=== PATIENT | female | born 1955 | race Caucasian/White ===

== ENCOUNTER 2017-12-01 16:44 | Emergency (ER) | payer BC, OTHER ==
[2017-12-01 17:08] VITALS: BP 141/76; PULSE 89; RESP 18; TEMP 97.6
[2017-12-01] MEDS ORDERED: PROPARACAINE 0.5% OPHTH DROPS 15 ML BTL BOTH EYES STA (17:32)
[2017-12-01] MEDS ORDERED: ERYTHROMYCIN 5 MG/GM OPHTH OINT 3.5 GM TUBE BOTH EYES ONE (17:45)
--- NOTE | 2017-12-01 18:13 | ED ---
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 She thinks that she has a foreign body with in the eye. She reports she woke up after working afternoon shift yesterday with the eye pain. She states that she had drainage from the eye. Denies any other symptoms. - Related Data Home Medications Medication Instructions Recorded Confirmed Naproxen Sodium [Aleve] 220 mg PO Q8H PRN 01/08/16 01/14/16 Azithromycin [Zithromax Z-pack] 250 - 500 mg PO DAILY 01/14/16 01/14/16 Previous Rx's Medication Instructions Recorded predniSONE 50 mg PO DAILY #5 tab 01/08/16 Albuterol Inhaler [Ventolin Hfa 1 - 2 puff INHALATION Q4H PRN #1 01/14/16 Inhaler] inhaler Allergies Allergy/AdvReac Type Severity Reaction Status Date / Time No Known Allergies Allergy Verified 12/01/17 17:08 Review of Systems ROS Statement: Those systems with pertinent positive or pertinent negative responses have been documented in the HPI. ROS Other: All systems not noted in ROS Statement are negative. Past Medical History Past Medical History: COPD History of Any Multi-Drug Resistant Organisms: None Reported Past Surgical History: No Surgical Hx Reported Past Psychological History: No Psychological Hx Reported Smoking Status: Current every day smoker Past Alcohol Use History: None Reported Past Drug Use History: None Reported General Exam - General Exam Comments Initial Comments: 62 yo female, no distress. Limitations: no limitations General appearance: alert, in no apparent distress Head exam: Present: atraumatic, normocephalic, normal inspection Eye exam: Present: normal appearance, PERRL, EOMI, conjunctival injection (left eye conjunctival injection). Absent: scleral icterus, periorbital swelling Expanded Eyelids: Normal Inspection: Bilateral Pupils: Regular, Round: Bilateral Sclera/Conjunctival: Injection: Left, Foreign Body: Left (corneal abrasion at 6 to 8 oclock position. No foreign body noted. ) Anterior chamber: Normal Inspection: Bilateral Posterior chamber: Deferred: Bilateral IOP (R) in mmH IOP (L) in mmH IOP measured with: [facility] ENT exam: Present: normal exam, mucous membranes moist Neck exam: Present: normal inspection. Absent: tenderness, meningismus, lymphadenopathy Respiratory exam: Present: normal lung sounds bilaterally. Absent: respiratory distress, wheezes, rales, rhonchi, stridor Cardiovascular Exam: Present: regular rate, normal rhythm, normal heart sounds. Absent: systolic murmur, diastolic murmur, rubs, gallop, clicks GI/Abdominal exam: Present: soft, normal bowel sounds. Absent: distended, tenderness, guarding, rebound, rigid Extremities exam: Present: normal inspection, full ROM, normal capillary refill. Absent: tenderness, pedal edema, joint swelling, calf tenderness Back exam: Present: normal inspection Neurological exam: Present: alert, oriented X3, CN II-XII intact Psychiatric exam: Present: normal affect, normal mood Course Vital Signs 12/01/17 12/01/17 17:07 18:31 Temperature 97.6 F 97.6 F Pulse Rate 89 89 Respiratory 18 18 Rate Blood Pressure 141/76 141/76 O2 Sat by Pulse 96 96 Oximetry Medical Decision Making - Medical Decision Making 62 year old female with left eye pain, and question foreign body. She works [employer]. She appears to have a corneal abrasion. No evidence of retained metal foreign body. Patient has mildly increased IOP of 25 in left eye. Will start on erythromycin ointment,and follow up with ophthalomology. Given referral adn return parameters discussed. Disposition Clinical Impression: Corneal abrasion Disposition: HOME SELF-CARE Condition: Good Instructions: Corneal Abrasion (ED) Additional Instructions: Patient has a follow-up tomorrow with hat designer in regards to elevated pressure as well as the corneal abrasion. Patient should return to the emergency department if any alarming signs or symptoms occur. The pressure in the left eye was 25, pressure was in the right eye was 16. And should put the eye ointment and every 4 hours. Is patient prescribed a controlled substance at d/c from ED?: No If prescribed controlled substance>3 days was MAPS reviewed?: No When asked, does pt state using other controlled substances?: No Referrals: None,Stated [Primary Care Provider] - 1-2 days Mendel Valle MD [STAFF PHYSICIAN] - 1-2 days Time of Disposition: 18:10
== END 2017-12-01 18:30 | disposition home or self-care (01) ==
LOC: EC 16:44
DX: S05.02XA Injury of conjunctiva and corneal abrasion without foreign body, left eye, initial encounter (principal); F17.200 Nicotine dependence, unspecified, uncomplicated; Y99.0 Civilian activity done for income or pay
CPT/HCPCS: 99283

== ENCOUNTER 2018-03-18 11:37 | Inpatient (IN) | payer BC ==
[2018-03-18] MEDS ORDERED: SODIUM CHLORIDE 0.9% 1,000 ML IV STA (12:09)
--- NOTE | 2018-03-18 12:13 | ED ---
General Adult HPI - General Chief complaint: Abdominal Pain Stated complaint: RT ARM PAIN, NUMBNESS, ABDOMINAL PAIN Time Seen by Provider: 03/18/18 11:59 Source: patient, RN notes reviewed Mode of arrival: ambulatory Limitations: no limitations - History of Present Illness Initial comments: Patient 62-year-old female presenting to the emergency room today with multiple complaints. Patient does admit that 2 days ago she woke up in the morning feeling some crampy type abdominal pain located more on the left. She states there has been some radiation over to the right side. Patient states pain seems to come and go. She describes it as "sharp". Patient also admits that she began feeling some pain back of the right shoulder and some numbness tingling into the right arm. Patient states these pains in the right arm are worse with movements. 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 She denies any known injury. Patient does admit to episodes of nausea vomiting. States appetites been decreased. Patient denies any other complaints. Patient denies any recent fever , chills, shortness of breath, chest pain, back pain, dysuria or hematuria, constipation or diarrhea, headaches or visual changes, or any other complaints. - Related Data Home Medications Medication Instructions Recorded Confirmed No Known Home Medications 03/18/18 03/18/18 Allergies Allergy/AdvReac Type Severity Reaction Status Date / Time No Known Allergies Allergy Verified 03/18/18 11:44 Review of Systems ROS Statement: Those systems with pertinent positive or pertinent negative responses have been documented in the HPI. ROS Other: All systems not noted in ROS Statement are negative. Past Medical History Past Medical History: COPD History of Any Multi-Drug Resistant Organisms: None Reported Past Surgical History: No Surgical Hx Reported Additional Past Surgical History / Comment(s): left nephrectomy r/t donated Past Psychological History: No Psychological Hx Reported Smoking Status: Current every day smoker Past Alcohol Use History: None Reported Past Drug Use History: None Reported General Exam - General Exam Comments Initial Comments: General: The patient is awake and alert, in no distress, and does not appear acutely ill. Eye: Pupils are equal, round and reactive to light, extra-ocular movements are intact. No nystagmus. There is normal conjunctiva bilaterally. No signs of icterus. Ears, nose, mouth and throat: There are moist mucous membranes and no oral lesions. Neck: The neck is supple, there is no tenderness or JVD. Cardiovascular: There is a regular rate and rhythm. No murmur, rub or gallop is appreciated. Respiratory: Lungs are clear to auscultation, respirations are non-labored, breath sounds are equal. No wheezes, stridor, rales, or rhonchi. Gastrointestinal: Abdomen soft on palpation. Patient does have tenderness lower quadrants both left and right. No rebound, guarding. Mild right-sided CVA tenderness. Musculoskeletal: Normal ROM. Tender to palpation posterior aspect shoulder and trapezius area. Pain worse with flexion and extension. Strength 5/5. Sensation intact. Pulses equal bilaterally 2+. Neurological: A&O x 3. CN II-XII intact, There are no obvious motor or sensory deficits. Coordination appears grossly intact. Speech is normal. Skin: Skin is warm and dry and no rashes or lesions are noted. Psychiatric: Cooperative, appropriate mood & affect, normal judgment. Limitations: no limitations Course Vital Signs 03/18/18 03/18/18 03/18/18 11:44 13:05 15:00 Temperature 97.9 F Pulse Rate 76 58 L 67 Respiratory 18 20 18 Rate Blood Pressure 103/67 116/55 158/68 O2 Sat by Pulse 100 95 98 Oximetry 03/18/18 16:00 Temperature 98.3 F Pulse Rate 52 L Respiratory 20 Rate Blood Pressure 149/69 O2 Sat by Pulse 98 Oximetry EKG Findings - EKG Comments: EKG Findings:: EKG performed at 1219: Shows normal sinus rhythm at 73 beats per minute. MA interval 154. QRS 78. QT/QTC 388/427. No acute ST changes. Medical Decision Making - Medical Decision Making Patient reexamined at this time still expresses some discomfort in the abdomen. Patient states that last bowel movement was 2 days ago. He is unsure if this had any flatulence today. Patient CT of the abdomen and pelvis does show evidence for acute diverticulitis. Also possible ileus versus small bowel obstruction patient will be started on IV antibiotics Levaquin and Flagyl here in the emergency room. Patient will remain nothing by mouth. - Lab Data Result diagrams: 03/18/18 13:05 03/18/18 13:05 Lab Results 03/18/18 03/18/18 03/18/18 Range/Units 13:05 13:05 13:05 WBC 8.7 (3.8-10.6) k/uL RBC 3.44 L (3.80-5.40) m/uL Hgb 10.4 L (11.4-16.0) gm/dL Hct 32.5 L (34.0-46.0) % MCV 94.6 (80.0-100.0) fL MCH 30.2 (25.0-35.0) pg MCHC 31.9 (31.0-37.0) g/dL RDW 15.6 H (11.5-15.5) % Plt Count 198 (150-450) k/uL Neutrophils % 88 % Lymphocytes % 4 % Monocytes % 5 % Eosinophils % 1 % Basophils % 0 % Neutrophils # 7.7 (1.3-7.7) k/uL Lymphocytes # 0.4 L (1.0-4.8) k/uL Monocytes # 0.5 (0-1.0) k/uL Eosinophils # 0.1 (0-0.7) k/uL Basophils # 0.0 (0-0.2) k/uL PT 9.9 (9.0-12.0) sec INR 1.0 (<1.2) APTT 23.7 (22.0-30.0) sec Sodium 135 L (137-145) mmol/L Potassium 4.1 (3.5-5.1) mmol/L Chloride 103 (98-107) mmol/L Carbon Dioxide 27 (22-30) mmol/L Anion Gap 5 mmol/L BUN 16 (7-17) mg/dL Creatinine 0.76 (0.52-1.04) mg/dL Est GFR (CKD-EPI)AfAm >90 (>60 ml/min/1.73 sqM) Est GFR (CKD-EPI)NonAf 85 (>60 ml/min/1.73 sqM) Glucose 94 (74-99) mg/dL Calcium 8.5 (8.4-10.2) mg/dL Total Bilirubin 0.5 (0.2-1.3) mg/dL AST 27 (14-36) U/L ALT 25 (9-52) U/L Alkaline Phosphatase 68 (38-126) U/L Troponin I (0.000-0.034) ng/mL Total Protein 7.3 (6.3-8.2) g/dL Albumin 3.1 L (3.5-5.0) g/dL Amylase 41 (30-110) U/L Lipase 47 (23-300) U/L Urine Color Urine Appearance (Clear) Urine pH (5.0-8.0) Ur Specific [place] (1.001-1.035) Urine Protein (Negative) Urine Glucose (UA) (Negative) Urine Ketones (Negative) Urine Blood (Negative) Urine Nitrite (Negative) Urine Bilirubin (Negative) Urine Urobilinogen (<2.0) mg/dL Ur Leukocyte Esterase (Negative) 03/18/18 03/18/18 Range/Units 13:05 15:28 WBC (3.8-10.6) k/uL RBC (3.80-5.40) m/uL Hgb (11.4-16.0) gm/dL Hct (34.0-46.0) % MCV (80.0-100.0) fL MCH (25.0-35.0) pg MCHC (31.0-37.0) g/dL RDW (11.5-15.5) % Plt Count (150-450) k/uL Neutrophils % % Lymphocytes % % Monocytes % % Eosinophils % % Basophils % % Neutrophils # (1.3-7.7) k/uL Lymphocytes # (1.0-4.8) k/uL Monocytes # (0-1.0) k/uL Eosinophils # (0-0.7) k/uL Basophils # (0-0.2) k/uL PT (9.0-12.0) sec INR (<1.2) APTT (22.0-30.0) sec Sodium (137-145) mmol/L Potassium (3.5-5.1) mmol/L Chloride (98-107) mmol/L Carbon Dioxide (22-30) mmol/L Anion Gap mmol/L BUN (7-17) mg/dL Creatinine (0.52-1.04) mg/dL Est GFR (CKD-EPI)AfAm (>60 ml/min/1.73 sqM) Est GFR (CKD-EPI)NonAf (>60 ml/min/1.73 sqM) Glucose (74-99) mg/dL Calcium (8.4-10.2) mg/dL Total Bilirubin (0.2-1.3) mg/dL AST (14-36) U/L ALT (9-52) U/L Alkaline Phosphatase (38-126) U/L Troponin I <0.012 (0.000-0.034) ng/mL Total Protein (6.3-8.2) g/dL Albumin (3.5-5.0) g/dL Amylase (30-110) U/L Lipase (23-300) U/L Urine Color Light Yellow Urine Appearance Clear (Clear) Urine pH 6.5 (5.0-8.0) Ur Specific [place] 1.013 (1.001-1.035) Urine Protein Negative (Negative) Urine Glucose (UA) Negative (Negative) Urine Ketones Negative (Negative) Urine Blood Negative (Negative) Urine Nitrite Negative (Negative) Urine Bilirubin Negative (Negative) Urine Urobilinogen <2.0 (<2.0) mg/dL Ur Leukocyte Esterase Negative (Negative) Disposition Clinical Impression: Acute diverticulitis, Ileus Disposition: ADMITTED IP TO THIS [facility] Condition: Stable Is patient prescribed a controlled substance at d/c from ED?: No Referrals: None,Stated [Primary Care Provider] - 1-2 days Time of Disposition: 16:03
[2018-03-18 13:23] LABS: Basophils % (A) 0 %; Eosinophils # (A) 0.1 k/uL (0-0.7); Eosinophils % (A) 1 %; HCT 32.5 % (34.0-46.0); HGB 10.4 gm/dL (11.4-16.0); Lymphocytes # (A) 0.4 k/uL (1.0-4.8); Lymphocytes % (A) 4 %; MCH 30.2 pg (25.0-35.0); MCHC 31.9 g/dL (31.0-37.0); MCV 94.6 fL (80.0-100.0); Mean Platelet Volume 7.3; Monocytes # (A) 0.5 k/uL (0-1.0); Monocytes % (A) 5 %; Neutrophils # (A) 7.7 k/uL (1.3-7.7); Neutrophils % (A) 88 %; Platelet Count 198 k/uL (150-450); RBC 3.44 m/uL (3.80-5.40); RDW 15.6 % (11.5-15.5); WBC 8.7 k/uL (3.8-10.6)
--- NOTE | 2018-03-18 13:35 | XR ---
EXAMINATION TYPE: XR chest 2V DATE OF EXAM: 03/18/2018 COMPARISON: 01/14/2016 HISTORY: Shortness of breath TECHNIQUE: Frontal and lateral views of the chest are obtained. FINDINGS: Scattered senescent parenchymal changes noted. Hyperinflation compatible with COPD. No evidence for infiltrate. No evidence for atelectasis. Heart size is stable. Mediastinal structures are stable and grossly unremarkable. No evidence for hilar prominence. Degenerative changes dorsal spine. IMPRESSION: 1. No evidence for acute pulmonary disease.
[2018-03-18 13:37] LABS: Partial Thromboplastin Time 23.7 sec (22.0-30.0); Prothrombin Time 9.9 sec (9.0-12.0)
--- NOTE | 2018-03-18 13:37 | XR ---
EXAMINATION TYPE: XR KUB DATE OF EXAM: 03/18/2018 COMPARISON: NONE HISTORY: Pain TECHNIQUE: Single supine KUB image of the abdomen is obtained FINDINGS: Small bowel demonstrates no evidence for dilatation or air fluid levels. Gas and fecal material is seen in non-distended colon. No convincing evidence for pneumoperitoneum. No unusual calcifications. The lung bases are clear. The osseous structures are intact. IMPRESSION: 1. Overall nonobstructive bowel gas pattern.
[2018-03-18 13:39] LABS: ALT 25 U/L (9-52); AST 27 U/L (14-36); Albumin 3.1 g/dL (3.5-5.0); Alkaline Phosphatase 68 U/L (38-126); Amylase 41 U/L (30-110); Anion Gap 5 mmol/L; Blood Urea Nitrogen 16 mg/dL (7-17); Calcium 8.5 mg/dL (8.4-10.2); Carbon Dioxide 27 mmol/L (22-30); Chloride 103 mmol/L (98-107); Glucose 94 mg/dL (74-99); Lipase 47 U/L (23-300); Potassium 4.1 mmol/L (3.5-5.1); Sodium 135 mmol/L (137-145); Total Bilirubin 0.5 mg/dL (0.2-1.3); Total Protein 7.3 g/dL (6.3-8.2)
--- NOTE | 2018-03-18 15:21 | CT ---
EXAMINATION TYPE: CT abdomen pelvis w con DATE OF EXAM: 03/18/2018 COMPARISON: NONE HISTORY: 62-year-old female generalized pain for 3-4 days TECHNIQUE: Contiguous axial scanning of the abdomen and pelvis following administration of 100 ml Iso iglesia 300 IV contrast. Delayed images through the kidneys and coronal/sagittal reconstructions perform ed. CT DLP: 991 mGycm Automated exposure control for dose reduction was used. FINDINGS: Heart normal size without pericardial effusion. Small hiatal hernia. Strandy atelectasis in the lower lungs. No pleural effusion. Liver is normal in size at 17.3 cm. No focal liver lesion. Patient is status post cholecystectomy. Po rtal venous system is patent. Bile duct within normal limits postcholecystectomy status and 9 mm. An ovoid 3.1 cm nodule in the right adrenal gland was present back on 01/08/[address] compatible w ith a benign etiology. Left adrenal gland, spleen, atrophic pancreas show no gross abnormality. Right kidney surgically absent. 2.0 cm cortical cyst left kidney. Prominent fluid-filled small bowel loops throughout the abdomen with liquid stool in the right hemico oniel. Some of the small bowel loops show moderate circumferential wall thickening involving long segme nts, for example, axial image 58 and 46. However, some distal small bowel loops in the right lower qu adrant are collapsed. Left-sided colonic diverticulosis with moderate wall thickening and surrounding fat stranding proxima l to mid sigmoid. Additional surrounding inflammation versus closely apposed soft tissue structures i n the left adnexa between the left ovary and mid sigmoid, axial image 62. Bladder is urine distended. Uterus and ovaries are visualized and no abnormal fluid collection seen i n the pelvis Bones: Degenerative changes of the hips. Osteopenia. Degenerative changes throughout the lumbar spine . IMPRESSION: 1. LEFT-SIDED COLONIC DIVERTICULOSIS. THERE IS WALL THICKENING AND SURROUNDING FAT STRANDING ALONG TH E PROXIMAL TO MID SIGMOID. ADDITIONAL INFLAMMATORY SOFT TISSUE THICKENING EXTENDS TO THE LEFT ADNEXA. CORRELATE FOR ACUTE DIVERTICULITIS. NO ABSCESS OR FREE AIR. 2. HOWEVER, THERE ARE PROMINENT FLUID-FILLED SMALL BOWEL LOOPS THROUGHOUT WITH SOME SEGMENTS SHOWING WALL THICKENING ALONG WITH LIQUID STOOL. A CONCURRENT ENTEROCOLITIS IS POSSIBLE. 3. DISTAL SMALL BOWEL LOOPS IN THE RIGHT LOWER QUADRANT ARE COLLAPSED. SHORT INTERVAL FOLLOW-UP RECOM MENDED TO REASSESS THE ABOVE FINDINGS AND IN ORDER TO EXCLUDE PARTIAL OR EARLY SMALL BOWEL OBSTRUCTIO N.
[2018-03-18 15:43] LABS: Appearance,Urine Clear (Clear); Bilirubin,Urine Negative (Negative); Blood,Urine Negative (Negative); Color,Urine Light Yellow; Glucose,Urine (UA) Negative (Negative); Ketones,Urine Negative (Negative); Leukocyte Esterase,Urine Negative (Negative); Nitrite,Urine Negative (Negative); PH, Urine 6.5 (5.0-8.0); Protein,Urine Negative (Negative); Specific Gravity,Urine 1.013 (1.001-1.035); Urobilinogen,Urine <2.0 mg/dL (<2.0)
[2018-03-18] MEDS ORDERED: LEVOFLOXACIN 500MG-D5W PMX 500 MG in DEXTROSE/WATER 1 100ML.BAG IVPB STA (15:56)
[2018-03-18] MEDS ORDERED: MORPHINE SULFATE 4 MG/ML SYRINGE IV PRN (16:37)
[2018-03-18] MEDS ORDERED: NALOXONE 0.4 MG/ML 1 ML VIAL IV PRN (16:37)
[2018-03-18] MEDS ORDERED: SODIUM CHLORIDE 0.9% 1,000 ML IV ONE (16:37)
[2018-03-18] MEDS ORDERED: ONDANSETRON 4 MG/2 ML VIAL IVP PRN (16:37)
[2018-03-18 17:21] VITALS: BMI 23.8
[2018-03-18] MEDS: metroNIDAZOLE-NS PMX 500 MG in SALINE 1 100ML.BAG IVPB SCH ×2 (17:41→23:39)
[2018-03-18] MEDS ORDERED: ACETAMINOPHEN TAB 325 MG TAB PO PRN (18:20)
[2018-03-18] MEDS ORDERED: IPRATROPIUM-ALBUTEROL 3 ML NEB INHALATION PRN (18:23)
--- NOTE | 2018-03-18 18:25 | P.HPIM ---
History of Present Illness H&P Date: 03/18/18 Chief Complaint: abdominal pain 62-year-old female with past medical history of COPD presents to the ED for abdominal pain. Patient states the abdominal pain started 3 days ago. Pain was initially intermittent occurring about 10 times daily but progressively got worse and is now constant. Pain is throbbing in nature. Pain is located periumbilically. Pain is nonradiating. Pain is not related to meals. There are no aggravating or alleviating factors. Patient also reports episodes of nausea over the past 3 days with no vomiting. She said her last bowel movement was 3 days ago but states is passing gas. She denies any fever, chills, cough, chest pain, shortness of breath and any changes in urination. She does endorse a decreased appetite. In the ED, CT of the abdomen showed a left sided colonic diverticulosis with acute diverticulitis, with concerns for SBO. Patient is admitted for further workup, with surgery on board. 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 Past Anesthesia/Blood Transfusion Reactions: No Reported Reaction Past Psychological History: No Psychological Hx Reported Smoking Status: Current every day smoker Past Alcohol Use History: None Reported Additional Past Alcohol Use History / Comment(s): started smoking at age 20 smokes 1/2 ppd Past Drug Use History: None Reported - Past Family History Mother Additional Family Medical History / Comment(s): "leaky heart valve' Father Family Medical History: Myocardial Infarction ([place]) Additional Family Medical History / Comment(s): in his sleep Medications and Allergies Home Medications Medication Instructions Recorded Confirmed Type No Known Home Medications 03/18/18 03/18/18 History Allergies Allergy/AdvReac Type Severity Reaction Status Date / Time No Known Allergies Allergy Verified 03/18/18 11:44 Physical Exam Vitals: Vital Signs Temp Pulse Pulse Resp BP BP Pulse Ox 03/18/18 17:28 98.1 F 54 L 16 138/68 98 03/18/18 17:04 98 F 62 18 149/69 99 03/18/18 16:00 98.3 F 52 L 20 149/69 98 03/18/18 15:00 67 18 158/68 98 03/18/18 13:05 58 L 20 116/55 95 03/18/18 11:44 97.9 F 76 18 103/67 100 Intake and Output 03/18/18 03/18/18 03/18/18 06:59 14:59 22:59 Other: Weight 58.967 kg 58.967 kg General: [non toxic], [no distress], [appears at stated age] Derm: [warm], [dry] Head: [atraumatic], [normocephalic], [symmetric] Eyes: [EOMI], [no lid lag], [anicteric sclera] Mouth: [no lip lesion], [mucus membranes moist] Cardiovascular: [S1S2 reg], [no murmur], [positive posterior tibial pulse bilateral], Lungs: [CTA bilateral], [no rhonchi, no rales] , [no accessory muscle use] Abdominal: [soft], [mild periumbilical tenderness without rebound], [no guarding ], [no appreciable organomegaly] Ext: [no gross muscle atrophy], [no edema], [no contractures] Neuro: [ CN II-XI grossly intact], [no focal neuro deficits] Psych: [Alert], [oriented], [appropriate affect] Results CBC & Chem 7: 03/18/18 13:05 03/18/18 13:05 Labs: Abnormal Lab Results - Last 24 Hours (Table) 03/18/18 03/18/18 Range/Units 13:05 13:05 RBC 3.44 L (3.80-5.40) m/uL Hgb 10.4 L (11.4-16.0) gm/dL Hct 32.5 L (34.0-46.0) % RDW 15.6 H (11.5-15.5) % Lymphocytes # 0.4 L (1.0-4.8) k/uL Sodium 135 L (137-145) mmol/L Albumin 3.1 L (3.5-5.0) g/dL CT scan - chest: report reviewed Thrombosis Risk Factor Assmnt - Choose All That Apply Any of the Below Risk Factors Present?: No Other Risk Factors: Yes Each Risk Factor Represents 2 Points: Age 61-74 years Thrombosis Risk Factor Assessment Total Risk Factor Score: 2 Thrombosis Risk Factor Assessment Level: Low Risk Assessment and Plan Assessment: Assessment and Plan 1. Diverticulitis: Continue Levofloxacin and Flagyl IV. Pain management with Tylenol PO, Tramadol PO or Morphine IV PRN. Zofran 4 mg IV Q8 PRN for N/V. Protonix 40 mg IV QD. Keep NPO due to concerns for SBO. FU Sx consult 2. COPD: Not on inhalers at home. DuoNeb PRN. 3. Anemia: Hg 10.4 Hct 32.5 MCV 94.6. FU Ferritin, Iron studies, B12/Folate 4. Smoker: Nicotine patch 14 mg QD. 5. DVT/GI Prophylaxis: SCD boots only. Protonix 40 mg IV QD.
[2018-03-18] MEDS: DEXTROSE 5%-0.45% NACL 1,000 ML IV SCH (20:09)
[2018-03-18] MEDS ORDERED: KETOROLAC 30 MG/ML 1 ML VIAL IVP ONE (20:54)
[2018-03-19 07:44] LABS: Basophils % (A) 0 %; Eosinophils # (A) 0.1 k/uL (0-0.7); Eosinophils % (A) 2 %; HGB 9.6 gm/dL (11.4-16.0); Hypochromasia Slight; Lymphocytes # (A) 0.4 k/uL (1.0-4.8); Lymphocytes % (A) 9 %; MCH 29.9 pg (25.0-35.0); MCV 93.4 fL (80.0-100.0); Mean Platelet Volume 7.7; Monocytes # (A) 0.2 k/uL (0-1.0); Monocytes % (A) 6 %; Neutrophils # (A) 3.1 k/uL (1.3-7.7); Neutrophils % (A) 80 %; Platelet Count 169 k/uL (150-450); RBC 3.21 m/uL (3.80-5.40); RDW 15.4 % (11.5-15.5); WBC 3.9 k/uL (3.8-10.6)
[2018-03-19] MEDS: metroNIDAZOLE-NS PMX 500 MG in SALINE 1 100ML.BAG IVPB SCH ×3 (07:47→23:50)
[2018-03-19] MEDS: PANTOPRAZOLE 40 MG/10 ML VIAL IV SCH (07:47)
[2018-03-19] MEDS: NICOTINE 14MG/24HR PATCH TRANSDERM SCH (07:47)
[2018-03-19] MEDS: DEXTROSE 5%-0.45% NACL 1,000 ML IV SCH ×2 (08:30→21:57)
[2018-03-19 08:45] LABS: ALT 70 U/L (9-52); AST 127 U/L (14-36); Albumin 2.5 g/dL (3.5-5.0); Alkaline Phosphatase 115 U/L (38-126); Anion Gap 5 mmol/L; Blood Urea Nitrogen 12 mg/dL (7-17); Calcium 8.1 mg/dL (8.4-10.2); Carbon Dioxide 23 mmol/L (22-30); Chloride 110 mmol/L (98-107); Glucose 98 mg/dL (74-99); Sodium 138 mmol/L (137-145); Total Bilirubin 0.3 mg/dL (0.2-1.3); Total Protein 6.3 g/dL (6.3-8.2)
--- NOTE | 2018-03-19 10:12 | P.GSCN ---
<Leigh Chamberlain M - Last Filed: 03/19/18 09:59> History of Present Illness Consult date: 03/19/18 Reason for Consult: Abdominal pain History of present illness: 62-year-old female presented on the day of admission to the emergency room to be evaluated for lower abdominal pain left greater than the right radiating to the back. stated the symptoms started approximately 2 days ago when she woke up feeling abdominal cramping located more on the left side. Patient states she felt nauseated did vomit. States had a bowel movement yesterday no change in bowel habits. Patient describes the abdominal pain as a sharp cramping sensation. Patient denies any prior episodes. States has not had a colonoscopy in the past. No blood noted in stool. No fever chills. 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 In the emergency room computed tomography scan of the abdomen and pelvis with contrast reviewed the report showed left-sided colon diverticulosis wall thickening sigmoid correlate for acute diverticulitis no abscess or free air cannot exclude partial or early small bowel obstruction Review of Systems Essentially unremarkable except as mentioned in the present illness Past Medical History Past Medical History: COPD Additional Past Medical History / Comment(s): past lt wrist fx-casted History of Any Multi-Drug Resistant Organisms: None Reported Past Surgical History: Cholecystectomy Additional Past Surgical History / Comment(s): 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 Past Anesthesia/Blood Transfusion Reactions: No Reported Reaction Past Psychological History: No Psychological Hx Reported Smoking Status: Current every day smoker Past Alcohol Use History: None Reported Additional Past Alcohol Use History / Comment(s): started smoking at age 20 smokes 1/2 ppd Past Drug Use History: None Reported - Past Family History Mother Additional Family Medical History / Comment(s): "leaky heart valve' Father Family Medical History: Myocardial Infarction ([place]) Additional Family Medical History / Comment(s): in his sleep Medications and Allergies Home Medications Medication Instructions Recorded Confirmed Type Acetaminophen [Tylenol 8 Hour] 650 mg PO Q8H PRN 03/18/18 03/18/18 History Allergies Allergy/AdvReac Type Severity Reaction Status Date / Time No Known Allergies Allergy Verified 03/18/18 11:44 Surgical - Exam Vital Signs Temp Pulse Resp BP Pulse Ox 97.9 F 76 18 103/67 100 03/18/18 11:44 03/18/18 11:44 03/18/18 11:44 03/18/18 11:44 03/18/18 11:44 GENERAL APPEARANCE: 62 -year-old female patient is alert, oriented, in no acute distress. VITAL SIGNS: Reviewed HEENT: Head is normocephalic and atraumatic. Pupils are equal and reactive. The nares are patent. Oropharynx is clear without lesions. NECK: Supple without lymphadenopathy. Traches midline. HEART: S1, S2. Regular rate and rhythm. No murmur noted denying chest pain LUNGS: No crackles or wheezes are heard. Adequate air movement on room air ABDOMEN: Soft, mild tenderness bilateral lower quadrants nondistended with good bowel sounds. No peritoneal signs. No palpable organomegaly or masses. No nausea no vomiting EXTREMITIES: Normal skin color and turgor. No cyanosis, rash, ulceration, clubbing or edema. Radial pedal pulses are 2/4 bilaterally. NEUROLOGICAL: No focal deficits. Strength and sensation are grossly intact. Results - Labs 03/19/18 06:25 03/19/18 06:25 Abnormal Lab Results - Last 24 Hours (Table) 03/18/18 03/18/18 03/19/18 Range/Units 13:05 13:05 06:25 RBC 3.44 L 3.21 L (3.80-5.40) m/uL Hgb 10.4 L 9.6 L (11.4-16.0) gm/dL Hct 32.5 L 30.0 L (34.0-46.0) % RDW 15.6 H (11.5-15.5) % Lymphocytes # 0.4 L 0.4 L (1.0-4.8) k/uL Sodium 135 L (137-145) mmol/L Chloride (98-107) mmol/L Calcium (8.4-10.2) mg/dL AST (14-36) U/L ALT (9-52) U/L Albumin 3.1 L (3.5-5.0) g/dL 03/19/18 Range/Units 06:25 RBC (3.80-5.40) m/uL Hgb (11.4-16.0) gm/dL Hct (34.0-46.0) % RDW (11.5-15.5) % Lymphocytes # (1.0-4.8) k/uL Sodium (137-145) mmol/L Chloride 110 H (98-107) mmol/L Calcium 8.1 L (8.4-10.2) mg/dL AST 127 H (14-36) U/L ALT 70 H (9-52) U/L Albumin 2.5 L (3.5-5.0) g/dL Microbiology - Last 24 Hours (Table) 03/18/18 15:28 Urine Culture - Preliminary Urine,Voided Diabetes panel 03/18/18 03/19/18 Range/Units 13:05 06:25 Sodium 135 L 138 (137-145) mmol/L Potassium 4.1 4.0 (3.5-5.1) mmol/L Chloride 103 110 H (98-107) mmol/L Carbon Dioxide 27 23 (22-30) mmol/L BUN 16 12 (7-17) mg/dL Creatinine 0.76 0.67 (0.52-1.04) mg/dL Glucose 94 98 (74-99) mg/dL Calcium 8.5 8.1 L (8.4-10.2) mg/dL AST 27 127 H (14-36) U/L ALT 25 70 H (9-52) U/L Alkaline Phosphatase 68 115 (38-126) U/L Total Protein 7.3 6.3 (6.3-8.2) g/dL Albumin 3.1 L 2.5 L (3.5-5.0) g/dL Calcium panel 03/18/18 03/19/18 Range/Units 13:05 06:25 Calcium 8.5 8.1 L (8.4-10.2) mg/dL Albumin 3.1 L 2.5 L (3.5-5.0) g/dL Pituitary panel 03/18/18 03/19/18 Range/Units 13:05 06:25 Sodium 135 L 138 (137-145) mmol/L Potassium 4.1 4.0 (3.5-5.1) mmol/L Chloride 103 110 H (98-107) mmol/L Carbon Dioxide 27 23 (22-30) mmol/L BUN 16 12 (7-17) mg/dL Creatinine 0.76 0.67 (0.52-1.04) mg/dL Glucose 94 98 (74-99) mg/dL Calcium 8.5 8.1 L (8.4-10.2) mg/dL Adrenal panel 03/18/18 03/19/18 Range/Units 13:05 06:25 Sodium 135 L 138 (137-145) mmol/L Potassium 4.1 4.0 (3.5-5.1) mmol/L Chloride 103 110 H (98-107) mmol/L Carbon Dioxide 27 23 (22-30) mmol/L BUN 16 12 (7-17) mg/dL Creatinine 0.76 0.67 (0.52-1.04) mg/dL Glucose 94 98 (74-99) mg/dL Calcium 8.5 8.1 L (8.4-10.2) mg/dL Total Bilirubin 0.5 0.3 (0.2-1.3) mg/dL AST 27 127 H (14-36) U/L ALT 25 70 H (9-52) U/L Alkaline Phosphatase 68 115 (38-126) U/L Total Protein 7.3 6.3 (6.3-8.2) g/dL Albumin 3.1 L 2.5 L (3.5-5.0) g/dL Assessment and Plan Assessment: Impression Present on admission bilateral lower abdominal pain suspect due to acute diverticulitis Present on admission anemia unclear etiology Computed tomography scan abdomen pelvis report indicates evidence of acute diverticulitis with possible early small bowel obstruction not ruled out Plan Continue IV antibiotics Levaquin and Flagyl as ordered Pain control IV fluid for hydration Will keep nothing by mouth except for meds Repeat labs in the morning Defer to the attending to evaluate the hemoglobin 9.6 Will need a colonoscopy this can be arranged in the outpatient setting when appropriate DVT and GI prophylaxis Surgical consultation note dictated for Dr. schumacher The above impression and plan of care have been discussed and directed by signing physician. Leigh Chamberlain nurse practitioner acting as scribe for signing physician. <Antwan Schumacher - Last Filed: 03/19/18 17:07> Surgical - Exam Vital Signs Temp Pulse Resp BP Pulse Ox 97.9 F 76 18 103/67 100 03/18/18 11:44 03/18/18 11:44 03/18/18 11:44 03/18/18 11:44 03/18/18 11:44 Results - Labs 03/19/18 06:25 03/19/18 06:25 Abnormal Lab Results - Last 24 Hours (Table) 03/19/18 03/19/18 03/19/18 Range/Units 06:25 06:25 06:25 RBC 3.21 L (3.80-5.40) m/uL Hgb 9.6 L (11.4-16.0) gm/dL Hct 30.0 L (34.0-46.0) % Lymphocytes # 0.4 L (1.0-4.8) k/uL Chloride 110 H (98-107) mmol/L Calcium 8.1 L (8.4-10.2) mg/dL Iron 15 L (50-170) ug/dL Iron Saturation 6.17 L (12.00-45.00) AST 127 H (14-36) U/L ALT 70 H (9-52) U/L Albumin 2.5 L (3.5-5.0) g/dL Microbiology - Last 24 Hours (Table) 03/18/18 15:28 Urine Culture - Preliminary Urine,Voided Diabetes panel 03/19/18 Range/Units 06:25 Sodium 138 (137-145) mmol/L Potassium 4.0 (3.5-5.1) mmol/L Chloride 110 H (98-107) mmol/L Carbon Dioxide 23 (22-30) mmol/L BUN 12 (7-17) mg/dL Creatinine 0.67 (0.52-1.04) mg/dL Glucose 98 (74-99) mg/dL Calcium 8.1 L (8.4-10.2) mg/dL AST 127 H (14-36) U/L ALT 70 H (9-52) U/L Alkaline Phosphatase 115 (38-126) U/L Total Protein 6.3 (6.3-8.2) g/dL Albumin 2.5 L (3.5-5.0) g/dL Calcium panel 03/19/18 Range/Units 06:25 Calcium 8.1 L (8.4-10.2) mg/dL Albumin 2.5 L (3.5-5.0) g/dL Pituitary panel 03/19/18 Range/Units 06:25 Sodium 138 (137-145) mmol/L Potassium 4.0 (3.5-5.1) mmol/L Chloride 110 H (98-107) mmol/L Carbon Dioxide 23 (22-30) mmol/L BUN 12 (7-17) mg/dL Creatinine 0.67 (0.52-1.04) mg/dL Glucose 98 (74-99) mg/dL Calcium 8.1 L (8.4-10.2) mg/dL Adrenal panel 03/19/18 Range/Units 06:25 Sodium 138 (137-145) mmol/L Potassium 4.0 (3.5-5.1) mmol/L Chloride 110 H (98-107) mmol/L Carbon Dioxide 23 (22-30) mmol/L BUN 12 (7-17) mg/dL Creatinine 0.67 (0.52-1.04) mg/dL Glucose 98 (74-99) mg/dL Calcium 8.1 L (8.4-10.2) mg/dL Total Bilirubin 0.3 (0.2-1.3) mg/dL AST 127 H (14-36) U/L ALT 70 H (9-52) U/L Alkaline Phosphatase 115 (38-126) U/L Total Protein 6.3 (6.3-8.2) g/dL Albumin 2.5 L (3.5-5.0) g/dL Assessment and Plan Assessment: As above. Patient doing much better today. Came to the hospital with left- sided pain. CAT scan reviewed and suggest diverticulitis. Remains on antibiotics. She is hungry. Will advance diet. Anticipate outpatient colonoscopy in 6-8 weeks. Will follow.
[2018-03-19] MEDS ORDERED: POLYETHYLENE GLYCOL 3350 17 GM POWD.PACK PO STA (10:37)
--- NOTE | 2018-03-19 10:40 | P.PN ---
Subjective Progress Note Date: 03/19/18 Principal diagnosis: Abdominal pain Patient is seen and examined. No acute events overnight. Patient reports no abdominal pain at rest, only with movement and laughing. Passing gas, no bowel movement. She denies nausea, vomiting, fever, chills, chest pain, cough, shortness of breath, changes in urination. Objective - Vital Signs Vital signs: Vital Signs Temp 98.2 F 03/19/18 08:01 Pulse 54 L 03/19/18 08:01 Resp 16 03/19/18 08:01 BP 137/67 03/19/18 08:01 Pulse Ox 93 L 03/19/18 08:01 Intake & Output 03/18/18 03/19/18 03/19/18 18:59 06:59 18:59 Intake Total 1280 Balance 1280 Weight 58.967 kg Intake: Intake, IV Titration 1280 Amount Dextrose 5%-0.45% NaCl 1, 1280 000 ml @ 80 mls/hr IV . [id number] [facility] Rx#:[id number] Other: # Voids 1 - Exam General: [non toxic], [no distress], [appears at stated age] Derm: [warm], [dry] Head: [atraumatic], [normocephalic], [symmetric] Eyes: [EOMI], [no lid lag], [anicteric sclera] Mouth: [no lip lesion], [mucus membranes moist] Cardiovascular: [S1S2 reg], [no murmur], [positive posterior tibial pulse bilateral], Lungs: [CTA bilateral], [no rhonchi, no rales] , [no accessory muscle use] Abdominal: [soft], [mild periumbilical tenderness with palpation without rebound ], [no guarding], [no appreciable organomegaly] Ext: [no gross muscle atrophy], [no edema], [no contractures] Neuro: [ CN II-XI grossly intact], [no focal neuro deficits] Psych: [Alert], [oriented], [appropriate affect] - Labs CBC & Chem 7: 03/19/18 06:25 03/19/18 06:25 Labs: Abnormal Lab Results - Last 24 Hours (Table) 03/18/18 03/18/18 03/19/18 Range/Units 13:05 13:05 06:25 RBC 3.44 L 3.21 L (3.80-5.40) m/uL Hgb 10.4 L 9.6 L (11.4-16.0) gm/dL Hct 32.5 L 30.0 L (34.0-46.0) % RDW 15.6 H (11.5-15.5) % Lymphocytes # 0.4 L 0.4 L (1.0-4.8) k/uL Sodium 135 L (137-145) mmol/L Chloride (98-107) mmol/L Calcium (8.4-10.2) mg/dL AST (14-36) U/L ALT (9-52) U/L Albumin 3.1 L (3.5-5.0) g/dL 03/19/18 Range/Units 06:25 RBC (3.80-5.40) m/uL Hgb (11.4-16.0) gm/dL Hct (34.0-46.0) % RDW (11.5-15.5) % Lymphocytes # (1.0-4.8) k/uL Sodium (137-145) mmol/L Chloride 110 H (98-107) mmol/L Calcium 8.1 L (8.4-10.2) mg/dL AST 127 H (14-36) U/L ALT 70 H (9-52) U/L Albumin 2.5 L (3.5-5.0) g/dL Microbiology - Last 24 Hours (Table) 03/18/18 15:28 Urine Culture - Preliminary Urine,Voided Assessment and Plan Assessment: Assessment and Plan 1. Diverticulitis: Continue Levofloxacin and Flagyl IV. Pain management with Tylenol PO, Tramadol PO or Morphine IV PRN. Zofran 4 mg IV Q8 PRN for N/V. Protonix 40 mg IV QD. Keep NPO due to concerns for SBO. Sx consulted, keep NPO, repeat labs in the AM, C-scope outPT. Bowel regimen with Docusate and Miralax. FU Sx 2. Elevated transaminase: Normal on admission. AST 127 ALT 70. Possibly due to IV Abx. FU CMP in the AM 3. COPD: Not on inhalers at home. DuoNeb PRN. 4. Anemia: Hg 9.6 Hct 30 MCV 93.4. C-scope outPT as per GI. FU Ferritin, Iron studies, B12/Folate 5. Smoker: Nicotine patch 14 mg QD. 6. DVT/GI Prophylaxis: SCD boots only. Protonix 40 mg IV QD. General Sx consulted. Will monitor for progress. Encourage early mobilization to have BM.
[2018-03-19 13:15] LABS: Folate, Serum 16.7 ng/mL; Iron Saturation 6.17 (12.00-45.00)
[2018-03-19] MEDS: traMADol 50 MG TAB PO PRN ×2 (13:41→21:55)
[2018-03-19] MEDS: DOCUSATE 100 MG CAP PO SCH (13:51)
[2018-03-19] MEDS ORDERED: LEVOFLOXACIN 500MG-D5W PMX 500 MG in DEXTROSE/WATER 1 100ML.BAG IVPB SCH (16:00)
[2018-03-20] MEDS: DEXTROSE 5%-0.45% NACL 1,000 ML IV SCH (02:42)
[2018-03-20 05:53] LABS: Glucose,Whole Blood 101 mg/dL (75-99)
[2018-03-20 07:47] LABS: HCT 30.2 % (34.0-46.0); HGB 9.9 gm/dL (11.4-16.0); Hypochromasia Slight; MCH 30.3 pg (25.0-35.0); MCHC 32.7 g/dL (31.0-37.0); MCV 92.7 fL (80.0-100.0); Mean Platelet Volume 7.4; Platelet Count 212 k/uL (150-450); RBC 3.26 m/uL (3.80-5.40); RDW 15.2 % (11.5-15.5); WBC 3.9 k/uL (3.8-10.6)
[2018-03-20 08:05] LABS: ALT 53 U/L (9-52); AST 58 U/L (14-36); Albumin 2.8 g/dL (3.5-5.0); Alkaline Phosphatase 104 U/L (38-126); Anion Gap 7 mmol/L; Blood Urea Nitrogen 6 mg/dL (7-17); Calcium 8.2 mg/dL (8.4-10.2); Carbon Dioxide 23 mmol/L (22-30); Chloride 109 mmol/L (98-107); Glucose 89 mg/dL (74-99); Potassium 3.7 mmol/L (3.5-5.1); Sodium 139 mmol/L (137-145); Total Bilirubin 0.3 mg/dL (0.2-1.3); Total Protein 6.7 g/dL (6.3-8.2)
[2018-03-20] MEDS: metroNIDAZOLE-NS PMX 500 MG in SALINE 1 100ML.BAG IVPB SCH (08:06)
[2018-03-20 08:14] VITALS: BP 170/71; PULSE 52; RESP 18; TEMP 97.6
--- NOTE | 2018-03-20 09:59 | P.PN ---
Subjective Progress Note Date: 03/20/18 Principal diagnosis: Abdominal pain. Patient seen and examined. No acute events overnight. Patient reports improvement in her abdominal pain, currently pain-free. She denies any nausea or vomiting. She was able to tolerate clear liquid diet yesterday. Patient reports 3 bowel movements yesterday. She denies any fever or chills. She is looking forward to going home. Objective - Vital Signs Vital signs: Vital Signs Temp 97.6 F 03/20/18 07:00 Pulse 52 L 03/20/18 07:00 Resp 18 03/20/18 07:00 BP 170/71 03/20/18 07:00 Pulse Ox 97 03/20/18 05:47 Intake & Output 03/19/18 03/20/18 03/20/18 18:59 06:59 18:59 Intake Total 840 840 240 Balance 840 840 240 Intake: Intake, IV Titration 840 840 Amount Dextrose 5%-0.45% NaCl 1, 640 840 000 ml @ 80 mls/hr IV . [id number] [facility] Rx#:[id number] Levofloxacin 500Mg-D5w 100 Pmx 500 mg In Dextrose/ Water 1 100ml.bag @ 100 mls/hr IVPB Q24H [facility] Rx#: [id number] metroNIDAZOLE-NS PMX 500 100 mg In Saline 1 100ml.bag @ 100 mls/hr IVPB Q8HR [facility] Rx#:[id number] Oral 240 Other: # Voids 4 - Exam General: [non toxic], [no distress], [appears at stated age] Derm: [warm], [dry] Head: [atraumatic], [normocephalic], [symmetric] Eyes: [EOMI], [no lid lag], [anicteric sclera] Mouth: [no lip lesion], [mucus membranes moist] Cardiovascular: [S1S2 reg], [no murmur], [positive posterior tibial pulse bilateral] Lungs: [CTA bilateral], [no rhonchi, no rales] , [no accessory muscle use] Abdominal: [soft], [mild periumbilical tenderness with palpation without rebound (improved from yesterday)], [no guarding], [no appreciable organomegaly] Ext: [no gross muscle atrophy], [no edema], [no contractures] Psych: [Alert], [oriented], [appropriate affect] - Labs CBC & Chem 7: 03/20/18 06:24 03/20/18 06:24 Labs: Abnormal Lab Results - Last 24 Hours (Table) 03/19/18 03/20/18 03/20/18 Range/Units 06:25 05:44 06:24 RBC 3.26 L (3.80-5.40) m/uL Hgb 9.9 L (11.4-16.0) gm/dL Hct 30.2 L (34.0-46.0) % Chloride (98-107) mmol/L BUN (7-17) mg/dL POC Glucose (mg/dL) 101 H (75-99) mg/dL Calcium (8.4-10.2) mg/dL Iron 15 L (50-170) ug/dL Iron Saturation 6.17 L (12.00-45.00) AST (14-36) U/L ALT (9-52) U/L Albumin (3.5-5.0) g/dL 03/20/18 Range/Units 06:24 RBC (3.80-5.40) m/uL Hgb (11.4-16.0) gm/dL Hct (34.0-46.0) % Chloride 109 H (98-107) mmol/L BUN 6 L (7-17) mg/dL POC Glucose (mg/dL) (75-99) mg/dL Calcium 8.2 L (8.4-10.2) mg/dL Iron (50-170) ug/dL Iron Saturation (12.00-45.00) AST 58 H (14-36) U/L ALT 53 H (9-52) U/L Albumin 2.8 L (3.5-5.0) g/dL Microbiology - Last 24 Hours (Table) 03/18/18 15:28 Urine Culture - Final Urine,Voided Assessment and Plan Assessment: Assessment and Plan 1. Diverticulitis: DC Levofloxacin and Flagyl IV and DC on Ciprofloxacin 750 mg PO BID to complete 10 days total. Pain management with Tylenol PO, Tramadol PO or Morphine IV PRN. Zofran 4 mg IV Q8 PRN for N/V. Protonix 40 mg IV QD. CLD and advance as tolerated. Sx consulted, advance diet, C-scope outPT. Bowel regimen with Docusate and Miralax. 2. Elevated transaminase: Normal on admission. AST 58 ALT 53. Possibly due to IV Abx. Trending down. FU CMP with PCP in 2 days. 3. Anemia: Hg 9.6 Hct 30 MCV 93.4. Iron studied indicating Fe def. anemia. B12 and Folate within normal limits. C-scope outPT as per GI. 4. COPD: Not on inhalers at home. DuoNeb PRN. 5. Smoker: Nicotine patch 14 mg QD. 6. DVT/GI Prophylaxis: SCD boots only. Protonix 40 mg IV QD. General Sx consulted. Advance diet and tolerated. Will DC home today to complete 10 days total of Abx and close FU with PCP and GI.
[2018-03-20] MEDS: NICOTINE 14MG/24HR PATCH TRANSDERM SCH (10:16)
[2018-03-20] MEDS: PANTOPRAZOLE 40 MG/10 ML VIAL IV SCH (10:17)
[2018-03-20] MEDS: DOCUSATE 100 MG CAP PO SCH (10:17)
[2018-03-20] MEDS ORDERED: LEVOFLOXACIN 500 MG TAB PO SCH (16:00)
[2018-03-20] MEDS ORDERED: metroNIDAZOLE 500 MG TAB PO SCH (16:00)
[2018-03-21] MEDS ORDERED: PANTOPRAZOLE 40 MG TABLET PO SCH (07:30)
== END 2018-03-20 12:20 | disposition home or self-care (01) | DRG 392 ==
LOC: EC 11:37 → 3SUR 16:20
PROVIDERS: ADMIT Family Medicine; ATTEND Family Medicine
DX: K57.32 Diverticulitis of large intestine without perforation or abscess without bleeding (principal); D50.9 Iron deficiency anemia, unspecified; F17.200 Nicotine dependence, unspecified, uncomplicated; J44.9 Chronic obstructive pulmonary disease, unspecified; Z82.49 Family history of ischemic heart disease and other diseases of the circulatory system; Z90.5 Acquired absence of kidney; R74.0 Nonspecific elevation of levels of transaminase and lactic acid dehydrogenase [LDH]; Z90.49 Acquired absence of other specified parts of digestive tract
CPT/HCPCS: 36415; 71046; 74018; 74177; 80053; 81003; 82150; 82607; 82728; 82746; 83540; 83550; 83690; 84484; 85025; 85027; 85610; 85730; 87086; 93005; 96361; 96365; 99285

== ENCOUNTER 2018-05-10 09:46 | Day surgery (SDC) | payer BC ==
[2018-05-05 12:54] VITALS: BMI 25.0
[~2018-05-10 09:46] MED LIST: LACTATED RINGERS 1,000 ML IV SCH; LIDOCAINE 1% 20 ML VIAL (10MG/ML) FOR IV START INTRADERMA PRN; MIDAZOLAM 2 MG/2 ML VIAL IV PRN
[2018-05-10 10:05] VITALS: TEMP 97.4
[2018-05-10] MEDS ORDERED: PROPOFOL 10 MG/ML 20 ML VIAL IV ONE ×2 (11:41→12:15)
[2018-05-10] MEDS ORDERED: LIDOCAINE 1% INJ 10MG/ML (20 ML MDV) ONE ×2 (11:41→12:15)
--- NOTE | 2018-05-10 12:10 | P.PCN ---
Date of Procedure: 05/10/18 Procedure(s) Performed: Procedure: Total colonoscopy. Preoperative diagnosis: Recent hospitalization for abdominal pain and diverticulitis. Postoperative diagnosis: 1. Sigmoid diverticulosis with no evidence of acute diverticulitis or strictures. 2. No polyps or tumors seen. 3. Low-grade internal hemorrhoids not bleeding at the time of this exam. Preparation: HalfLytely prep. Sedation: Was provided by anesthesia. Brief clinical history: The patient is a 62-year-old female who is scheduled for this evaluation because of an episode of diverticulitis for which she was hospitalized those the endoscope was and early March. This examination is to assess for complicated diverticular disease or other pathology. Procedure: With the patient on her left lateral decubitus position and after informed consent and adequate sedation, the perianal area was inspected and it did not show any fissures or fistulas. There were no masses felt on digital rectal examination. The Olympus CFQ 160L video colonoscope was then inserted in the rectum in the usual fashion and advanced to the cecum. There were several diverticular orifices seen scattered in the sigmoid but I saw no evidence of acute diverticulitis or strictures. The mucosa appeared healthy. No significant polyps were seen I retroflexed the endoscope in the rectum before the endoscope was withdrawn. Low-grade internal hemorrhoids were noted but there was no evidence of bleeding. The patient tolerated the procedure well. Plan: The patient was reassured. Discussed dietary measures and local care for hemorrhoids. Repeat colonoscopy in 10 years.
[2018-05-10] MEDS ORDERED: MIDAZOLAM 2 MG/2 ML VIAL ONE (12:15)
[2018-05-10 12:23] VITALS: BP 155/89; PULSE 62; RESP 16
== END 2018-05-10 12:36 | disposition home or self-care (01) ==
LOC: ORWHC2ENDO 09:46
DX: K57.30 Diverticulosis of large intestine without perforation or abscess without bleeding (principal); K64.8 Other hemorrhoids; J44.9 Chronic obstructive pulmonary disease, unspecified; Z72.0 Tobacco use; Z90.5 Acquired absence of kidney
CPT/HCPCS: 45378; J2250; J2001; J2704

== ENCOUNTER 2019-05-21 22:40 | Observation (INO) | payer BC ==
[2019-05-21] MEDS ORDERED: SODIUM CHLORIDE 0.9% 1,000 ML IV STA ×3 (22:50→23:32)
[2019-05-21] MEDS ORDERED: IPRATROPIUM-ALBUTEROL 3 ML NEB INHALATION STA ×2 (23:00→23:41)
--- NOTE | 2019-05-21 23:04 | ED ---
Chest Pain HPI - General Chief Complaint: Chest Pain Stated Complaint: Chest pain Time Seen by Provider: 05/21/19 22:49 Source: patient, RN notes reviewed, old records reviewed Mode of arrival: ambulatory Limitations: no limitations - History of Present Illness Initial Comments: This is a 63-year-old female the ER for evasive chest pain left-sided chest pain with cough. History of smoking and admits to smoking continue to smoke currently. History of COPD. Denies travel history sick contacts or fevers, not any significant auscultation no prior history of chest pain. Patient again denying any current recent fevers. No modifying factors. She states it is worse when she smoke slightly does admit to having a cigarette prior to coming to the emergency department tonight. Patient does have 1 surgery and her history consistent for left nephrectomy which she donated her sister. Otherwise patient has no other significant medical history no significant history of heart disease and no prior heart evaluation, no prior history of heart testing chest MD Complaint: chest pain (L side chest pain), other (Shortness of breath cough) Onset: during rest Pain Location: substernal, left chest Pain Radiation: none Severity: moderate Severity scale (1-10): 4 Quality: tightness, aching Consistency: constant Improves With: nothing Worsens With: exertion, inspiration Anginal Symptoms: dyspnea Other Symptoms: cough Treatments Prior to Arrival: none - Related Data Home Medications Medication Instructions Recorded Confirmed Naproxen Sodium [Aleve] 220 mg PO BID 05/21/19 05/21/19 Allergies Allergy/AdvReac Type Severity Reaction Status Date / Time No Known Allergies Allergy Verified 05/21/19 23:06 Review of Systems ROS Statement: Those systems with pertinent positive or pertinent negative responses have been documented in the HPI. ROS Other: All systems not noted in ROS Statement are negative. EKG Findings - EKG Comments: EKG Findings:: EKG shows sinus rhythm rate of 64, TX 150, QRS 80, QTC 408 Past Medical History Past Medical History: COPD Additional Past Medical History / Comment(s): past lt wrist fx-casted. 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 Past Anesthesia/Blood Transfusion Reactions: No Reported Reaction Past Psychological History: No Psychological Hx Reported Smoking Status: Current every day smoker Past Alcohol Use History: None Reported Past Drug Use History: None Reported - Past Family History Mother Additional Family Medical History / Comment(s): "leaky heart valve' Father Family Medical History: Myocardial Infarction ([place]) Additional Family Medical History / Comment(s): in his sleep General Exam Limitations: no limitations General appearance: alert, in no apparent distress Head exam: Present: atraumatic, normocephalic, normal inspection Eye exam: Present: normal appearance, PERRL, EOMI. Absent: scleral icterus, conjunctival injection, periorbital swelling ENT exam: Present: normal exam, mucous membranes moist Neck exam: Present: normal inspection. Absent: tenderness, meningismus, lymphadenopathy Respiratory exam: Present: respiratory distress, wheezes, accessory muscle use, decreased breath sounds, prolonged expiratory. Absent: rales, rhonchi, stridor Cardiovascular Exam: Present: regular rate, normal rhythm, normal heart sounds. Absent: systolic murmur, diastolic murmur, rubs, gallop, clicks GI/Abdominal exam: Present: soft, normal bowel sounds. Absent: distended, tenderness, guarding, rebound, rigid Extremities exam: Present: normal inspection, full ROM, normal capillary refill. Absent: tenderness, pedal edema, joint swelling, calf tenderness Back exam: Present: normal inspection Neurological exam: Present: alert, oriented X3, CN II-XII intact Psychiatric exam: Present: normal affect, normal mood Skin exam: Present: warm, dry, intact, normal color. Absent: rash Course Vital Signs 05/21/19 05/21/19 05/21/19 22:43 22:52 23:43 Temperature 97.7 F Pulse Rate 74 70 61 Respiratory 18 18 Rate Blood Pressure 152/73 142/74 O2 Sat by Pulse 87 L 97 Oximetry 05/21/19 05/21/19 23:45 23:50 Temperature Pulse Rate 61 63 Respiratory 20 Rate Blood Pressure 130/59 O2 Sat by Pulse 100 Oximetry - Reevaluation(s) Reevaluation #1: 05/21/19 23:46 Medical records reviewed Reevaluation #2: 05/21/19 23:46 symptoms here are improved Chest Pain MDM - MDM 63 female the ER for evaluation patient does say for evaluation of significant COPD exacerbation with cough congestion patient be admitted for COPD exacerbation still with chest pain will admit for chest pain observation Disposition Clinical Impression: Chest pain, Acute exacerbation of chronic obstructive pulmonary disease (COPD), Hypoxia Disposition: ADMITTED IP TO THIS HOSP Condition: Good Is patient prescribed a controlled substance at d/c from ED?: No Referrals: None,Stated [REFERRING] - 1-2 days
[2019-05-21 23:19] LABS: Basophils % (A) 1 %; Eosinophils # (A) 0.1 k/uL (0-0.7); Eosinophils % (A) 3 %; HCT 40.4 % (34.0-46.0); HGB 13.3 gm/dL (11.4-16.0); Lymphocytes # (A) 0.6 k/uL (1.0-4.8); Lymphocytes % (A) 12 %; MCH 31.2 pg (25.0-35.0); MCHC 32.9 g/dL (31.0-37.0); MCV 94.7 fL (80.0-100.0); Mean Platelet Volume 6.7; Monocytes # (A) 0.4 k/uL (0-1.0); Monocytes % (A) 8 %; Neutrophils # (A) 3.4 k/uL (1.3-7.7); Neutrophils % (A) 73 %; Platelet Count 262 k/uL (150-450); RBC 4.27 m/uL (3.80-5.40); RDW 14.5 % (11.5-15.5); WBC 4.7 k/uL (3.8-10.6)
[2019-05-21 23:27] LABS: ALT 16 U/L (9-52); AST 36 U/L (14-36); African American GFR (CKD) >90 (>60 ml/min/1.73 sqM); Albumin 4.1 g/dL (3.5-5.0); Alkaline Phosphatase 83 U/L (38-126); Anion Gap 8 mmol/L; Blood Urea Nitrogen 24 mg/dL (7-17); Calcium 9.8 mg/dL (8.4-10.2); Carbon Dioxide 23 mmol/L (22-30); Chloride 110 mmol/L (98-107); Creatine Kinase 146 U/L (30-135); Glucose 123 mg/dL (74-99); Magnesium 1.8 mg/dL (1.6-2.3); Potassium 4.3 mmol/L (3.5-5.1); Sodium 141 mmol/L (137-145); Total Bilirubin 0.2 mg/dL (0.2-1.3); Total Protein 9.2 g/dL (6.3-8.2)
[2019-05-21] MEDS ORDERED: NITROGLYCERIN SL TABS 0.4 MG TAB SUBLINGUAL PRN (23:41)
[2019-05-21] MEDS ORDERED: methylPREDNISolone SOD SUCCI 125 MG/2 ML VIAL IV STA (23:41)
[2019-05-21] MEDS ORDERED: KETOROLAC 30 MG/ML 1 ML VIAL IVP STA (23:43)
[2019-05-21 23:44] LABS: INR 0.9 (<1.2); Partial Thromboplastin Time 22.9 sec (22.0-30.0); Prothrombin Time 9.8 sec (9.0-12.0)
--- NOTE | 2019-05-21 23:59 | CT ---
EXAMINATION TYPE: CT angio chest DATE OF EXAM: 05/21/2019 11:41 PM COMPARISON: 01/08/2016 HISTORY: Chest pain CT DLP: 351.5 mGycm Automated exposure control for dose reduction was used. CONTRAST: CTA scan of the thorax is performed with IV Contrast, patient injected with 60 mL of Isovue 370, pulm onary embolism protocol. . There are 3-D post processed images. FINDINGS: Thyroid gland is enlarged. This is consistent with goiter. There is no mediastinal significant adenop athy. Ascending aorta measures 3.5 cm. Heart size is normal. There is no pericardial effusion. There is no aortic aneurysm or dissection. I see no filling defects in the pulmonary arteries. There are bi lateral bronchial lymph nodes up to 1.5 cm. Unchanged. The lungs are clear of consolidation. There is minimal nodular linear density in the lingula left upper lobe. There is no pleural effusion. The bon y thorax is intact. There is hypertrophic spurring in the mid and lower thoracic spine. IMPRESSION: NO EVIDENCE OF PULMONARY EMBOLISM. THERE IS SOME SCARRING IN THE LINGULA LEFT UPPER LOBE UNCHANGED. THERE IS CLEARING OF THE PATCHY INFILTRATE IN THE RIGHT LUNG COMPARED TO OLD EXAM.
[2019-05-22 00:05] LABS: D-Dimer 0.76 mg/L FEU (<0.60)
[2019-05-22] MEDS: SODIUM CHLORIDE 0.9% 1,000 ML IV SCH ×4 (01:20→21:32)
[2019-05-22] MEDS: methylPREDNISolone SOD SUCCI 125 MG/2 ML VIAL IV SCH ×4 (01:56→17:32)
[2019-05-22 05:36] LABS: Cholesterol 145 mg/dL (<200); HDL Cholesterol 31 mg/dL (40-60); LDL Cholesterol,Calculated 103 mg/dL (0-99); Triglycerides 53 mg/dL (<150)
[2019-05-22] MEDS ORDERED: ENOXAPARIN 60 MG/0.6 ML SYRINGE SQ ONE (05:45)
[2019-05-22 06:18] LABS: Glucose,Whole Blood 186 mg/dL (75-99)
[2019-05-22] MEDS: IPRATROPIUM-ALBUTEROL 3 ML NEB INHALATION SCH ×4 (07:35→19:14)
--- NOTE | 2019-05-22 07:35 | CONS ---
CONSULTATION Jasmyne Solorzano is a 63-year-old lady, a kidney donor, who has history of cholecystectomy. She has no significant past medical history. She smokes at least a pack a day and has COPD. She does not have any hypertension, hyperlipidemia, or diabetes. She came into the hospital with an episode of discomfort in the chest. I am seeing her in this regard. At the time of my evaluation, she is quite comfortable and resting. Her initial troponin level has been normal. She apparently was at work when she started experiencing midsternal discomfort, sharp in nature, then seemed to be more constant. It came on without physical activity and there was no significant associated shortness of breath or palpitations. The pain seemed to be more focal. There were no obvious precipitating or relieving factors. However, the pain has resolved. She is resting comfortably. PAST MEDICAL HISTORY: Remarkable for left nephrectomy, a kidney donor, cholecystectomy. She smokes and has history of COPD. She does not have hypertension, diabetes, hyperlipidemia. MEDICATIONS: Aleve p.r.n. ALLERGIES: None. REVIEW OF SYSTEMS: Remarkable for exertional shortness of breath, wheezing and cough occasionally. She is being screened for colon CA. She has no such hematemesis, melena, genitourinary symptoms, fever with chills or cough with expectoration. PHYSICAL EXAMINATION: Blood pressure is 140/70, pulse rate is 64 per minute and regular. HEENT unremarkable. Fundus was not examined by me. Neck is supple. No JVD. I do not hear a carotid bruit. Heart exam reveals S1, S2 heard normally. There is a short systolic murmur at the left lower sternal border. LUNGS: Lungs reveal bilateral air entry and air entry somewhat diminished. Abdomen is soft, nontender. Lower extremities reveal diminished pulses. No edema. Central nervous system is normal. EKG revealed a sinus bradycardia. No acute changes. LABORATORY DATA: Laboratory data revealed unremarkable troponin, but the D-dimer was slightly elevated. She had a CT angiogram which revealed no evidence of any pulmonary embolism. IMPRESSION: 1. Atypical chest pain. 2. Smoking and chronic obstructive pulmonary disease. 3. Kidney donor with left nephrectomy. 4. Rule out hypothyroidism. Clinically, patient looks hypothyroid. RECOMMENDATIONS: I am recommending 60 mg of Lovenox subcutaneously. We will do a TSH level and repeat troponin level. If 3 sets of troponins are normal, I will perform a regular stress test in the morning. We will check thyroid function as well. The patient has been counseled regarding the need to quit smoking. MMODL / IJN: [id number] /
[2019-05-22] MEDS: INSULIN ASPART (NovoLOG) 100 UNIT/ML VIAL SQ SCH ×4 (07:47→21:34)
[2019-05-22] MEDS: ASPIRIN 325 MG TAB PO SCH (07:47)
[2019-05-22] MEDS: NICOTINE 21MG/24HR PATCH TRANSDERM SCH (09:14)
[2019-05-22 11:37] LABS: Glucose,Whole Blood 252 mg/dL (75-99)
--- NOTE | 2019-05-22 12:52 | XR ---
EXAMINATION TYPE: XR chest 1V portable DATE OF EXAM: 05/22/2019 HISTORY: pneumonia. REFERENCE: Previous study dated 3817. FINDINGS: Heart size is normal. There is vascular congestion and mild interstitial change. Pleural sp aces are clear. Note is made of severe rotator cuff disease in the right shoulder. There are hypertrophic changes in the AC joints bilaterally. IMPRESSION: 1. I COULD NOT EXCLUDE SOME DEGREE OF CONGESTIVE HEART FAILURE. 2. DEGENERATIVE CHANGE WITHIN THE SHOULDERS.
--- NOTE | 2019-05-22 14:58 | HP ---
HISTORY AND PHYSICAL DATE OF SERVICE: 05/22/2019 CHIEF COMPLAINT: Chest pain. HISTORY OF PRESENT ILLNESS: This 63-year-old woman with a past medical history of multiple medical problems including history of COPD, history of cholecystectomy, history of nicotine dependence, being followed by Dr. Gaviota Owens in the outpatient setting complaining of lower chest pain. The pain was felt sharp and which radiated to the left side and the patient came to [facility] and admitted for further evaluation and treatment. The patient also had left nephrectomy as a donor for renal transplant. There is no history of any palpitations. No history of headache, loss of consciousness or seizures. No history of nausea and diarrhea. No history of aggravating or relieving factors. No history of radiation elsewhere. The patient admitted for further evaluation and treatment. Initial troponins are negative. D-dimer was 0.76. CT angio showed no evidence of acute pulmonary embolism. The pulse ox was 87 percent on room air on admission. PAST MEDICAL HISTORY: Past medical history of COPD, history of colon cancer, history of cholecystectomy. MEDICATIONS: Home medications are Naprosyn 220 mg p.o. b.i.d. ALLERGIES: None. FAMILY HISTORY: History of myocardial infarction, leaky heart valve. SOCIAL HISTORY: History of smoking, continued ongoing. No history of alcohol intake. REVIEW OF SYSTEMS: ENT: No diminished hearing. No diminished vision. CARDIOVASCULAR as mentioned earlier. RESPIRATORY: As mentioned earlier. GI no nausea. no dysuria. NERVOUS SYSTEM: No numbness or weakness. ALLERGY/IMMUNOLOGY: No asthma or hayfever. MUSCULOSKELETAL as mentioned earlier. HEMATOLOGY/ONCOLOGY: No history of anemia. ENDOCRINE: No history of diabetes or hypothyroidism. CONSTITUTIONAL: As mentioned earlier. DERMATOLOGY: Negative. RHEUMATOLOGY negative. PSYCHIATRY as mentioned earlier. PHYSICAL EXAMINATION: Alert and oriented times three. Pulse 70, blood pressure 142/74, respiration 18, temperature 97.7, pulse improved to 97% on 2 L. HEENT: Conjunctivae normal. Oral mucosa moist. Neck is no jugular venous distention. No carotid bruit. No lymph node enlargement. Cardiovascular system: S1, S2 muffled. RESPIRATION: Breath sounds diminished in the bases. A few scattered rhonchi. No crackles. ABDOMEN: Soft, nontender. No mass palpable. LEGS: No edema. No swelling. NERVOUS SYSTEM: Higher functions as mentioned earlier. Moves all four limbs. No focal deficits. LYMPHATICS: No lymph nodes palpable in the neck, axillae or groin. SKIN: No ulcers. No rashes. No bleeding. JOINTS: No active deforming arthropathy. LABS: CBC within normal limits and D-dimer is 0.76 and glucose 123 and 252 and creatinine kinase 146. ASSESSMENT: 1. Chest pain possible unstable angina. 2. Hypoxia, possible chronic obstructive pulmonary disease acute exacerbation. 3. Continued ongoing nicotine dependence. 4. Elevated D-dimer with no evidence of pulmonary embolism. 5. History of cholecystectomy. 6. History of left nephrectomy and renal donor. RECOMMENDATIONS AND DISCUSSION: In this 63-year-old woman who presented with multiple medical issues, at this time, I recommend to continue current medications, management and symptomatic treatment. Rule out myocardial infarction. Possible stress test. Also recommend optimize bronchodilator treatment. I would also recommend a course of IV steroids also. Prognosis guarded because of multiple complex medical issues. Further recommendations to follow. A copy of dictation being forwarded to Dr. Gaviota Owens who is the primary care physician. KRYSTAL / WAI: [id number] /
[2019-05-22 16:52] LABS: Glucose,Whole Blood 217 mg/dL (75-99)
[2019-05-22 20:51] LABS: Glucose,Whole Blood 230 mg/dL (75-99)
[2019-05-22] MEDS: NAPROXEN 250 MG TAB PO SCH (21:30)
[2019-05-23] MEDS: SODIUM CHLORIDE 0.9% 1,000 ML IV SCH ×2 (00:56→06:27)
[2019-05-23] MEDS: MORPHINE SULFATE 4 MG/ML SYRINGE IVP PRN ×2 (00:59→05:08)
[2019-05-23] MEDS: methylPREDNISolone SOD SUCCI 125 MG/2 ML VIAL IV SCH ×3 (01:00→12:04)
[2019-05-23 06:14] LABS: Basophils % (A) 0 %; Eosinophils % (A) 0 %; HCT 32.1 % (34.0-46.0); HGB 10.7 gm/dL (11.4-16.0); Lymphocytes # (A) 0.4 k/uL (1.0-4.8); Lymphocytes % (A) 3 %; MCH 31.9 pg (25.0-35.0); MCHC 33.2 g/dL (31.0-37.0); MCV 95.9 fL (80.0-100.0); Mean Platelet Volume 6.3; Monocytes # (A) 0.3 k/uL (0-1.0); Monocytes % (A) 3 %; Neutrophils # (A) 10.4 k/uL (1.3-7.7); Neutrophils % (A) 93 %; Platelet Count 211 k/uL (150-450); RBC 3.35 m/uL (3.80-5.40); RDW 14.5 % (11.5-15.5); WBC 11.2 k/uL (3.8-10.6)
[2019-05-23 06:31] LABS: African American GFR (CKD) >90 (>60 ml/min/1.73 sqM); Anion Gap 5 mmol/L; Blood Urea Nitrogen 21 mg/dL (7-17); Calcium 8.9 mg/dL (8.4-10.2); Carbon Dioxide 23 mmol/L (22-30); Chloride 114 mmol/L (98-107); Glucose 133 mg/dL (74-99); Potassium 4.5 mmol/L (3.5-5.1); Sodium 142 mmol/L (137-145)
[2019-05-23 06:40] LABS: Glucose,Whole Blood 139 mg/dL (75-99)
[2019-05-23] MEDS ORDERED: CAFFEINE CITRATE 60 MG/3 ML VIAL IV PRN (07:46)
[2019-05-23] MEDS ORDERED: REGADENOSON 0.4 MG/5 ML SYRINGE IV ONE (07:46)
[2019-05-23] MEDS ORDERED: AMINOPHYLLINE 500 MG/20 ML VIAL IV PRN (07:46)
[2019-05-23] MEDS ORDERED: DIPYRIDAMOLE IV ONE (08:00)
[2019-05-23] MEDS ORDERED: SODIUM CHLORIDE 0.9% IV ONE (08:00)
[2019-05-23] MEDS: IPRATROPIUM-ALBUTEROL 3 ML NEB INHALATION SCH ×2 (08:26→11:49)
--- NOTE | 2019-05-23 09:03 | US ---
EXAMINATION TYPE: US abdomen complete DATE OF EXAM: 05/23/2019 COMPARISON: CT abdomen pelvis dated 03/18/2018 CLINICAL HISTORY: epigastric pain/chest pain. GB removed. RK removed. NPO. Generalized pain. EXAM MEASUREMENTS: Liver Length: 16.6 cm CBD: 0.7 cm Spleen: 10.0 cm Left Kidney: 12.6 x 5.3 x 6.2 cm Pancreas: Main pancreatic duct = 1.5 mm, within normal limits Liver: wnl Gallbladder: Surgically absent Evidence for sonographic Hope's sign: neg CBD: wnl Spleen: wnl Right Kidney: Surgically absent Left Kidney: lower pole cystic appearing lesion - 2.2 x 1.8 x 2.2 cm Upper IVC: wnl Abd Aorta: No AAA visualized The liver is homogenous. The intrahepatic portion of the IVC and proximal abdominal aorta are within normal limits. Common bile duct is unremarkable. The visualized portions of the pancreas are homoge nous. The spleen is unremarkable. No hydronephrosis on the left. IMPRESSION: Surgical absence of the gallbladder and right kidney. Benign-appearing left lower pole re nal cyst.
--- NOTE | 2019-05-23 10:37 | P.PN ---
Subjective This is a pleasant 63-year-old female past medical history significant for left nephrectomy secondary to kidney donation, cholecystectomy, chronic nicotine dependence and COPD. She denies prior history of coronary artery disease, hypertension, dyslipidemia or diabetes mellitus. 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 We are following her secondary to chest discomfort. She is seen and examined resting comfortably in no acute distress. She states she has had intermittent episodes of chest [facility] similar to the reason she came in they are sharp in nature. No radiation to the arm, back, neck or jaw. Not related to activity or exertion. Chest x-ray obtained reveals mild interstitial changes and vascular congestion. Ultrasound of the abdomen is unremarkable. Laboratory data reviewed, WBC 11.2, hemoglobin 10.7, platelets 211, sodium 142, potassium 4.5, creatinine 0.68, TSH 1.96. Curr ently maintained on aspirin 325 mg daily and IV Solu-Medrol. GENERAL: Well-appearing, well-nourished and in no acute distress. NECK: Supple without JVD or thyromegaly. LUNGS: Breath sounds clear to auscultation bilaterally. Respiration equal and unlabored. No wheezes, rales or rhonchi. HEART: Regular rate and rhythm with systolic ejection murmur at the left sternal border, no rubs or gallops. S1 and S2 heard. EXTREMITIES: Normal range of motion, no edema. No clubbing or cyanosis. Peripheral pulses intact. ASSESSMENT Chest pain, atypical. An acute coronary event has been ruled out. Leukocytosis, likely reactive secondary to steroids Dyslipidemia, LDL 103 COPD Chronic nicotine dependence History of left nephrectomy secondary to kidney donation PLAN Proceed with persantine stress test as previously ordered. If any reversibility noted we will consider coronary angiography for definitive diagnosis. If normal she may be discharged from a cardiac perspective. Smoking cessation recommended. Nurse Practitioner note has been reviewed, I agree with a documented findings and plan of care. Patient was seen and examined. Objective - Vital Signs Vital signs: Vital Signs Temp 97.5 F L 05/23/19 07:41 Pulse 80 05/23/19 08:41 Resp 17 05/23/19 07:41 BP 140/63 05/23/19 07:41 Pulse Ox 97 05/23/19 08:31 Intake & Output 11/03/19 11/04/19 11/04/19 18:59 06:59 18:59 Intake Total 480 Balance 480 Intake: Oral 480 Other: Voiding Method Toilet Toilet Toilet # Voids 2 1 - Labs CBC & Chem 7: 05/23/19 05:43 05/23/19 05:43 Labs: Abnormal Lab Results - Last 24 Hours (Table) 05/22/19 05/22/19 05/22/19 Range/Units 11:36 16:51 20:50 WBC (3.8-10.6) k/uL RBC (3.80-5.40) m/uL Hgb (11.4-16.0) gm/dL Hct (34.0-46.0) % Neutrophils # (1.3-7.7) k/uL Lymphocytes # (1.0-4.8) k/uL Chloride (98-107) mmol/L BUN (7-17) mg/dL Glucose (74-99) mg/dL POC Glucose (mg/dL) 252 H 217 H 230 H (75-99) mg/dL 05/23/19 05/23/19 05/23/19 Range/Units 05:43 05:43 06:39 WBC 11.2 H (3.8-10.6) k/uL RBC 3.35 L (3.80-5.40) m/uL Hgb 10.7 L (11.4-16.0) gm/dL Hct 32.1 L (34.0-46.0) % Neutrophils # 10.4 H (1.3-7.7) k/uL Lymphocytes # 0.4 L (1.0-4.8) k/uL Chloride 114 H (98-107) mmol/L BUN 21 H (7-17) mg/dL Glucose 133 H (74-99) mg/dL POC Glucose (mg/dL) 139 H (75-99) mg/dL
--- NOTE | 2019-05-23 11:24 | PN ---
PROGRESS NOTE Mrs Solorzano's troponins are normal. She complains of nondescript chest tightness and also abdominal discomfort. The quality of the pain is atypical. I will do an a Lexiscan stress test today and also will do an ultrasound of the abdomen. Vitals are stable. No JVD. S1-S2 heard normally. There is a short systolic murmur audible at the left lower sternal border. Lungs are clear. Abdomen is soft, nontender. Lower extremities reveal normal pulses. No edema. Central system was normal. I will perform an ultrasound of the abdomen in view of her diffuse abdominal discomfort, nondescript and also a Lexiscan stress test to rule out ischemia. If these are normal she can be discharged. MMODL / IJN: [id number] /
[2019-05-23] MEDS: INSULIN ASPART (NovoLOG) 100 UNIT/ML VIAL SQ SCH ×2 (11:50→12:05)
[2019-05-23 11:53] LABS: Glucose,Whole Blood 171 mg/dL (75-99)
[2019-05-23] MEDS: NAPROXEN 250 MG TAB PO SCH (12:04)
[2019-05-23] MEDS: NICOTINE 21MG/24HR PATCH TRANSDERM SCH (12:04)
[2019-05-23] MEDS: ASPIRIN 325 MG TAB PO SCH (12:04)
--- NOTE | 2019-05-23 12:42 | NM ---
EXAMINATION TYPE: NM stress persantine cardiolit DATE OF EXAM: 05/23/2019 COMPARISON: NONE HISTORY: Chest pain TECHNIQUE: After the intravenous administration of 9.8 mCi Tc 99m Sestamibi - Cardiolite resting SPE CT images acquired 60 minutes post injection. The patient received 34 mg Persantine, 24.7 mCi Tc 99m Sestamibi - Stress images obtained 45 minutes post injection FINDINGS: Review of stress and rest SPECT images demonstrates no distinct perfusion abnormality. Gated analysi s shows normal wall motion with an estimated left ventricular ejection fraction of 60 %. TID is calcu lated at 1.2, upper limits of normal. IMPRESSION: 1. No scintigraphic evidence for reversible ischemia. 2. Upper limits of normal TID coefficient, which can be seen in cardiomyopathy or balanced 3 vessel i schemia.
[2019-05-23 12:59] VITALS: BP 168/78; PULSE 55; RESP 18; TEMP 97.9
--- NOTE | 2019-05-23 14:33 | EST ---
EXERCISE STRESS AGE: 63 SEX: F HT: 5'2" WT: 130 LBS. PROTOCOL: Persantine STAGE: DURATION OF EXERCISE: HEART RATE REST: 61 BLOOD PRESSURE REST: 149/75 MAXIMUM HEART RATE ACHIEVED: 86 MAXIMUM BLOOD PRESSURE: 149/77 85% MPHR: 100% MPHR: METS: INDICATIONS: Chest pain. RESULTS: The patient's baseline EKG revealed normal sinus rhythm without significant ST changes. With Persantine administration, heart rate changed from 61-79 beats per minute. Blood pressure changed from 165/79 to 149/77. EKG was unremarkable. Patient was asymptomatic. By EKG criteria, this is an unremarkable Persantine stress test. The nuclear scan results which are more pertinent will be reported by the radiologist. MMODL / IJN: [id number] /
--- NOTE | 2019-05-24 08:39 | ECHOF ---
Referral Reason:chest pain MEASUREMENTS -------- HEIGHT: 157.5 cm WEIGHT: 59.0 kg BP: 140/63 RVIDd: 2.5 cm (< 3.3) IVSd: 1.1 cm (0.6 - 1.1) LVIDd: 4.5 cm (3.9 - 5.3) LVPWd: 1.1 cm (0.6 - 1.1) IVSs: 1.6 cm LVIDs: 2.9 cm LVPWs: 1.6 cm LA Diam: 3.0 cm (2.7 - 3.8) LAESV Index (A-L): 28.76 ml/m Ao Diam: 3.0 cm (2.0 - 3.7) AV Cusp: 1.8 cm (1.5 - 2.6) MV EXCURSION: 14.100 mm (> 18.000) MV EF SLOPE: 81 mm/s (70 - 150) EPSS: 0.9 cm MV E Rasta: 0.99 m/s MV DecT: 263 ms MV A Rasta: 0.84 m/s MV E/A Ratio: 1.19 TAPSE: 28.63 mm FINDINGS -------- Sinus rhythm. This was a technically good study. The left ventricular size is normal. There is borderline concentric left ventricular hypertrophy. Overall left ventricular systolic function is normal with, an EF between 60 - 65 %. The right ventricle is normal in size. Normal LA size by volume 22+/-6 ml/m2. The right atrium is normal in size. Interatrial and interventricular septum intact. The aortic valve is trileaflet and appears structurally normal. Trace to mild aortic regurgitation. The mitral valve is normal. The tricuspid valve appears structurally normal. The pulmonic valve was not well visualized. The aortic root size is normal. Normal inferior vena cava with normal inspiratory collapse consistent with estimated right atrial pre ssure of 5 mmHg. There is no pericardial effusion. CONCLUSIONS -------- 1. Sinus rhythm. 2. This was a technically good study. 3. The left ventricular size is normal. 4. There is borderline concentric left ventricular hypertrophy. 5. Overall left ventricular systolic function is normal with, an EF between 60 - 65 %. 6. The right ventricle is normal in size. 7. Normal LA size by volume 22+/-6 ml/m2. 8. The right atrium is normal in size. 9. Interatrial and interventricular septum intact. 10. The aortic valve is trileaflet and appears structurally normal. 11. Trace to mild aortic regurgitation. 12. The mitral valve is normal. 13. The tricuspid valve appears structurally normal. 14. The pulmonic valve was not well visualized. 15. The aortic root size is normal. 16. Normal inferior vena cava with normal inspiratory collapse consistent with estimated right atrial pressure of 5 mmHg. 17. There is no pericardial effusion. WEBSITE PROJECT MANAGER: Arlen Chisholm RDCS
--- NOTE | 2019-05-24 08:45 | DS ---
DISCHARGE SUMMARY DATE OF SERVICE: 05/23/2019. FINAL DIAGNOSES: 1. Chest pain possibly musculoskeletal possibly gastroesophageal reflux disease. Negative stress test. Possibly pleuritic pain. Other diagnoses are: 1. Hypoxia, possible chronic obstructive pulmonary disease acute exacerbation with purulent tracheobronchitis, improved. 2. Continued ongoing nicotine dependence. 3. Elevated D-dimer with no evidence of pulmonary embolism. 4. History of cholecystectomy. 5. History of nephrectomy and renal transplant donor. DISCHARGE DISPOSITION: The patient will be discharged in stable condition with guarded prognosis. HISTORY OF PRESENT ILLNESS: This 63-year-old woman with a past medical history of multiple medical problems admitted with chest pain, myocardial infarction ruled out. Cardiology performed a Persantine stress which was negative. Patient improved significantly. Abdominal ultrasound was also negative On exam, vitals are stable. CARDIOVASCULAR: S1, S2 muffled. ABDOMEN: Soft. NERVOUS SYSTEM: No focal deficits. The patient will be discharged in stable condition with guarded prognosis. DISCHARGE ADVICE: 1. Diet is cardiac. 2. Activity limited until followup. 3. Follow up with Dr. Gaviota Owens in 2-3 days. 4. Follow with Cardiology as recommended. Medications are as follows: 1. Naprosyn 220 p.o. b.i.d. p.r.n. 2. Ceftin 500 mg p.o. b.i.d. for 3 days. 3. Combivent Respimat 1 puff q.i.d. 4. Habitrol , no smoking. 5. Prednisone 40 mg daily for 3 days, 30 for 3 days, 20 for 3 days 10 for 3 days. 6. Symbicort 160/4.5 one puff b.i.d. Once again the patient will be discharged in stable condition with guarded prognosis. MMODL / IJN: [id number] / MTDD
== END 2019-05-23 13:50 ==
LOC: EC 22:40 → 1SOBS 05-22
PROVIDERS: ADMIT Hospitalist; ATTEND Hospitalist
DX: R07.89 Other chest pain (principal); R09.02 Hypoxemia; F17.210 Nicotine dependence, cigarettes, uncomplicated; J44.9 Chronic obstructive pulmonary disease, unspecified; R79.89 Other specified abnormal findings of blood chemistry; N28.1 Cyst of kidney, acquired; D72.829 Elevated white blood cell count, unspecified; E78.5 Hyperlipidemia, unspecified; Z52.4 Kidney donor; Z79.82 Long term (current) use of aspirin; Z79.1 Long term (current) use of non-steroidal anti-inflammatories (NSAID); Z87.81 Personal history of (healed) traumatic fracture; Z90.49 Acquired absence of other specified parts of digestive tract; Z90.5 Acquired absence of kidney; Z82.49 Family history of ischemic heart disease and other diseases of the circulatory system
CPT/HCPCS: 93005 ×2; 96361 ×4; 96372; 96375 ×2; 96376 ×2; 96374; 99285; 36415; 94640 ×4; 94760; 93017; 93306; 85379; 83880; 80061; 80053; 80048; 84443; 82550; 83735; 84484 ×2; 85025 ×2; 85610; 85730; 71045; 76700; 71275; 78452; G0378 ×2; A9500; J2270; J2930 ×2; J1650; J1885; J1245; Q9967

== ENCOUNTER 2019-05-25 23:30 | Emergency (ER) | payer BC ==
[2019-05-25 23:43] VITALS: TEMP 98.6
[2019-05-26 00:28] LABS: Basophils % (A) 0 %; Eosinophils # (A) 0.1 k/uL (0-0.7); Eosinophils % (A) 1 %; HCT 35.2 % (34.0-46.0); HGB 11.8 gm/dL (11.4-16.0); Lymphocytes # (A) 0.3 k/uL (1.0-4.8); Lymphocytes % (A) 3 %; MCH 32.1 pg (25.0-35.0); MCHC 33.5 g/dL (31.0-37.0); MCV 95.8 fL (80.0-100.0); Mean Platelet Volume 6.1; Monocytes # (A) 0.2 k/uL (0-1.0); Monocytes % (A) 2 %; Neutrophils # (A) 8.5 k/uL (1.3-7.7); Neutrophils % (A) 93 %; Platelet Count 217 k/uL (150-450); RBC 3.67 m/uL (3.80-5.40); RDW 14.5 % (11.5-15.5); WBC 9.2 k/uL (3.8-10.6)
[2019-05-26 00:33] LABS: African American GFR (CKD) >90 (>60 ml/min/1.73 sqM); Albumin 3.7 g/dL (3.5-5.0); Anion Gap 7 mmol/L; Calcium 8.8 mg/dL (8.4-10.2); Carbon Dioxide 23 mmol/L (22-30); Chloride 106 mmol/L (98-107); Glucose 105 mg/dL (74-99); Sodium 136 mmol/L (137-145); Total Bilirubin 0.5 mg/dL (0.2-1.3); Total Protein 8.1 g/dL (6.3-8.2)
[2019-05-26 00:34] LABS: ALT 26 U/L (9-52); AST 33 U/L (14-36); Blood Urea Nitrogen 24 mg/dL (7-17); Magnesium 1.9 mg/dL (1.6-2.3)
[2019-05-26 00:35] LABS: Alkaline Phosphatase 72 U/L (38-126)
--- NOTE | 2019-05-26 00:40 | XR ---
EXAMINATION TYPE: XR chest 2V DATE OF EXAM: 05/26/2019 COMPARISON: 05/22/2019 HISTORY: Chest pain TECHNIQUE: Frontal and lateral views of the chest are obtained. FINDINGS: Heart is normal. There is no pleural effusion. There are chest leads. Costophrenic angles are clear. There is slight coarsening of the interstitial markings. There is a possible new mild inf iltrate right lower lobe at the right cardiac border on the frontal view. IMPRESSION: Minimal fibrotic changes. Normal heart. There is question of a new small infiltrate in t he medial right lower lobe compared to old exam.
[2019-05-26 00:57] LABS: INR 0.9 (<1.2); Prothrombin Time 9.8 sec (9.0-12.0)
[2019-05-26 01:02] LABS: Partial Thromboplastin Time 21.1 sec (22.0-30.0)
--- NOTE | 2019-05-26 01:07 | ED ---
Chest Pain HPI - General Chief Complaint: Chest Pain Stated Complaint: Chest Pain Time Seen by Provider: 05/25/19 23:50 Source: patient, family Mode of arrival: ambulatory Limitations: no limitations - History of Present Illness Initial Comments: Jasmyne is a pleasant 63-year-old female with a history of COPD who presents the ER today for reevaluation of recurrent chest pain. Patient was seen and evaluated last week, she was admitted to the hospital she underwent a stress test which was normal. She is advised to follow up outpatient with cardiology. Patient reports that this evening she return to work for the first time, patient does have a physically demanding job. Patient reports that upon working she began feeling this sharp pain in her left chest that she was feeling in the week prior to her ER visit. Patient describes the pain as sharp left sided worse with palpation or certain movements. Pain is not exertional or associated with diaphoresis lightheadedness or shortness of breath. He has states she returned because she wants to know what is causing her pain and how to make it better. She did not take anything for the pain. - Related Data Home Medications Medication Instructions Recorded Confirmed Naproxen Sodium [Aleve] 220 mg PO BID 05/21/19 05/21/19 Previous Rx's Medication Instructions Recorded Budesonide/Formoterol Fumarate 1 puff IH BID #1 hfa.aer.ad 05/23/19 [Symbicort 160-4.5 Mcg Inhaler] Cefuroxime Axetil [Ceftin] 500 mg PO BID 3 Days #6 tab 05/23/19 Ipratropium/Albuterol Sulfate 1 puff INHALATION QID #1 inhaler 05/23/19 [Combivent Respimat Inhaler] Nicotine 21Mg/24Hr Patch [Habitrol] 1 patch TRANSDERM DAILY #30 patch 05/23/19 predniSONE 10 mg PO DIRECTED #30 tab 05/23/19 Allergies Allergy/AdvReac Type Severity Reaction Status Date / Time No Known Allergies Allergy Verified 05/25/19 23:43 Review of Systems ROS Statement: Those systems with pertinent positive or pertinent negative responses have been documented in the HPI. ROS Other: All systems not noted in ROS Statement are negative. Past Medical History Past Medical History: COPD Additional Past Medical History / Comment(s): past lt wrist fx-casted. 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 Past Anesthesia/Blood Transfusion Reactions: No Reported Reaction Past Psychological History: No Psychological Hx Reported Smoking Status: Current every day smoker Past Alcohol Use History: None Reported Past Drug Use History: None Reported - Past Family History Mother Additional Family Medical History / Comment(s): "leaky heart valve' Father Family Medical History: Myocardial Infarction ([place]) Additional Family Medical History / Comment(s): in his sleep General Exam - General Exam Comments Initial Comments: Physical Exam GENERAL: Patient is well-developed and well-nourished. Patient is nontoxic and well- hydrated and is in no distress. HENT: Normocephalic, Atraumatic. EYES: PERRL, EOMI PULMONARY: Unlabored respirations. No audible rales rhonchi or wheezing was noted. CARDIOVASCULAR: There is a regular rate and rhythm without any murmurs gallops or rubs. ABDOMEN: Soft and nontender with normal bowel sounds. SKIN: Skin is clear with no lesions or rashes and otherwise unremarkable. : Deferred NEUROLOGIC: Patient is alert and oriented x3. Moving all extremities spontaneously MUSCULOSKELETAL: Normal extremities with adequate strength and full range of motion. No lower extremity swelling or edema. No calf tenderness. PSYCHIATRIC: Normal psychiatric evaluation. Limitations: no limitations Course Vital Signs 05/25/19 05/26/19 05/26/19 23:39 01:00 02:00 Temperature 98.6 F Pulse Rate 60 57 L 57 L Respiratory 20 19 21 Rate Blood Pressure 159/76 152/75 145/76 O2 Sat by Pulse 100 95 94 L Oximetry Chest Pain [facility] EKG was obtained due to complaint of chest pain, EKG was obtained 2354, rate is 61 rhythm sinuses normal axis there are normal intervals MT 146, care 62, QTc is [address] elevations or depressions or evidence of acute ischemia or infarction. The patient was seen and evaluated history is obtained from the patient. Patient has reproducible sharp left-sidedNo evidence of ACS, pericarditis, myocarditis, pulmonary embolism, pneumothorax, pneumonia, Zoster, or esophageal perforation. Historically not abrupt in onset, tearing or ripping, pulses symmetric, no evidence of aortic dissection.. Patient not experiencing any exertional chest pain or diaphoresis, lightheadedness palpitations there is no radiation of pain to the jaw or neck. Patient was recently admitted and underwent a thorough cardiac evaluation including a Persantine stress test and an echocardiogram. Troponin is negative labs at baseline results were discussed with the patient who expresses relief and is comfortable with the plan for discharge home. At this time I do not feel the patient's pain is cardiac in nature she has no EKG findings no lab changes and a recent normal stress test. Disposition Clinical Impression: Atypical chest pain Disposition: HOME SELF-CARE Condition: Stable Instructions (If sedation given, give patient instructions): Costochondritis (ED) Is patient prescribed a controlled substance at d/c from ED?: No Referrals: Gaviota Owens MD [Primary Care Provider] - 1-2 days
[2019-05-26 02:25] VITALS: BP 145/76; PULSE 57; RESP 21
== END 2019-05-26 02:37 | disposition home or self-care (01) ==
LOC: EC 23:30
DX: R07.89 Other chest pain (principal); F17.200 Nicotine dependence, unspecified, uncomplicated; Z79.1 Long term (current) use of non-steroidal anti-inflammatories (NSAID); Z82.49 Family history of ischemic heart disease and other diseases of the circulatory system
CPT/HCPCS: 36415; 71046; 80053; 83735; 83880; 84484; 85025; 85610; 85730; 93005; 99285

== ENCOUNTER → 2020-01-20 | Outpatient (CLI) | payer BC ==
--- NOTE | 2020-01-20 11:51 | MR ---
EXAMINATION TYPE: MR lumbar spine wo con DATE OF EXAM: 01/20/2020 COMPARISON: CT 03/18/2018 HISTORY: Low back pain radiating to left leg TECHNIQUE: Multiplanar, multisequence images of the lumbar spine were acquired. L1-L2: Circumferential posterior disc bulge causes mild anterior mass effect on the thecal sac. Circu mferential extension endplate disc complex contributes with the spinal curvature, there is right-side d foraminal encroachment greater than left. L2-L3: Cerclage posterior disc bulge causes mild anterior mass effect on the thecal sac. No significa nt spinal stenosis. There is some facet arthropathy change. No definite foraminal encroachment. L3-L4: Posterior cervical vertebral disc bulge causes anterolateral mass effect on the thecal sac ecc entric towards the right. Circumferential extension of endplate disc complex results in foraminal enc roachment greater on the left than on the right. There is facet arthropathy with hypertrophy of ligam entum flavum causes some minimal posterior lateral mass effect on the thecal sac. L4-L5: Differential posterior disc bulge, posterior extension endplate disc complex causes mild anter ior mass effect on the thecal sac. There is facet arthropathy change. No significant spinal stenosis. Circumflex frontal extension endplate disc complex results in foraminal encroachment greater on the left than on the right. L5-S1: There are facet arthropathy changes present. Posterior extension of endplate disc complex cont acts anterior thecal sac. Circumferential extension endplate disc complex results in bilateral forami nal encroachment. No significant spinal stenosis. Lumbar segments are intact. No paraspinal masses are identified. Conus medullaris has a normal appe arance. Spondylosis is present at multiple levels. There is a spinal curvature. Loss of disc height a nd signal is present at the intervertebral levels, there is endplate discogenic marrow signal change, multilevel vacuum disc phenomenon. Right adrenal mass is thought to be stable. Smaller left adrenal mass may be present measuring approximately 6 to 7 mm not likely stable compared to on the prior exam . IMPRESSION: Degenerative disc disease, facet arthropathy, multilevel foraminal encroachment, scoliosis.
== END | disposition home or self-care (01) ==
LOC: RADMRIMAIN 10:31
PROVIDERS: ATTEND Internal Medicine
DX: M47.896 Other spondylosis, lumbar region (principal); M51.36 Other intervertebral disc degeneration, lumbar region; M41.86 Other forms of scoliosis, lumbar region
CPT/HCPCS: 72148

== ENCOUNTER → 2020-04-28 | Outpatient (CLI) | payer BC ==
--- NOTE | 2020-04-29 04:17 | MR ---
EXAMINATION TYPE: MR abdomen wo/w con DATE OF EXAM: 04/28/2020 COMPARISON: MRI scan 02/29/2020 HISTORY: Adrenal mass CONTRAST: Standard multiplanar, multisequence MRI departmental protocol utilizing 7 mL intravenous Gadavist dionte olinium contrast. Liver has normal size and contour with no focal defect. The bile ducts are not dilated. There is a si ngle left kidney there is absent right kidney. Left kidney appears to show compensatory hypertrophy. Spleen is intact. There is no evidence of pancreatic mass. The stomach is intact. There is no sign of pleural effusion. There is a oval-shaped 30 x 10 mm mass in the paraspinal region adjacent to the liver. This is the an ticipated region of the right adrenal gland. The mass shows no loss of signal on the out of phase doron ges that suggests absence of any significant amount of fat. The mass appears unchanged compared to MR scan of 02/29/2020. This mass is not changed compared to the CT angiogram of the chest of 05/21/2019. Mass also unchanged compared to the older CT scan of the chest of 01/08/2016. In any event the shape o f the lesion is benign and there is no change in 4 1/2 years that is consistent with only benign etio logy. There is no ascites. Left kidney has normal size and contour without hydronephrosis. There are left-s ided renal cortical cysts. Left adrenal gland appears normal. There are spondylotic changes in the th oracic and lumbar spine. IMPRESSION: Oval-shaped right adrenal mass with completely benign features and no change compared to exam over 4 years ago.
== END | disposition home or self-care (01) ==
LOC: RADMRIMAIN 12:31
PROVIDERS: ATTEND Internal Medicine
DX: E27.9 Disorder of adrenal gland, unspecified (principal)
CPT/HCPCS: 74183; A9585

== ENCOUNTER → 2020-09-20 | Outpatient (CLI) | payer OTHER ==
--- NOTE | 2020-09-21 10:15 | MM ---
Reason for exam: screening (asymptomatic). Physical Findings: A clinical breast exam by your physician is recommended on an annual basis and results should be correlated with mammographic findings. MG Screening Mammo w CAD Bilateral CC, MLO, and XCCL view(s) were taken. The breast tissue is heterogeneously dense. This may lower the sensitivity of mammography. Focal asymmetry upper outer quadrants bilaterally. ASSESSMENT: Benign, BI-RAD 2 RECOMMENDATION: Routine screening mammogram of both breasts in 1 year.
== END ==
LOC: RADMAMWWP 10:53
PROVIDERS: ATTEND Internal Medicine
DX: Z12.31 Encounter for screening mammogram for malignant neoplasm of breast (principal)
CPT/HCPCS: 77067

== ENCOUNTER 2020-11-11 11:28 | Emergency (ER) | payer OTHER ==
[2020-11-11 11:38] VITALS: TEMP 98
[2020-11-11] MEDS ORDERED: SODIUM CHLORIDE 0.9% 1,000 ML IV STA (12:08)
--- NOTE | 2020-11-11 12:11 | ED ---
General Adult HPI - General Chief complaint: Weakness Stated complaint: weakness, lightheadedness Time Seen by Provider: 11/11/20 11:39 Source: patient Mode of arrival: wheelchair Limitations: no limitations - History of Present Illness Initial comments: 65-year-old female with history of COPD presents to the emergency department with a chief complaint of weakness. Daughter is also present to answer any additional questions. Patient reports on 10/27/19 when she received the [employer] vaccine and hasnt been feeling well. Daughter states the patient began complaining of decreased appetite and generalized weakness. Patient also reports developing cold sweats over the last 2 days. Patient denies any type of chest pain or shortness of breath. She did not have a thermometer so unknown temperature. Denies any nausea vomiting diarrhea. Does report occasional lightheadedness but no dizziness. She did report 2 days of dysuria but no incr eased urgency or frequency. She denies any abdominal pain, hematuria, hematochezia or melena. - Related Data Home Medications Medication Instructions Recorded Confirmed Naproxen Sodium [Aleve] 220 mg PO BID 05/21/19 05/21/19 Previous Rx's Medication Instructions Recorded Budesonide/Formoterol Fumarate 1 puff IH BID #1 hfa.aer.ad 05/23/19 [Symbicort 160-4.5 Mcg Inhaler] Cefuroxime Axetil [Ceftin] 500 mg PO BID 3 Days #6 tab 05/23/19 Ipratropium/Albuterol Sulfate 1 puff INHALATION QID #1 inhaler 05/23/19 [Combivent Respimat Inhaler] Nicotine 21Mg/24Hr Patch [Habitrol] 1 patch TRANSDERM DAILY #30 patch 05/23/19 predniSONE 10 mg PO DIRECTED #30 tab 05/23/19 Nitrofurantoin Monohyd/M-Cryst 100 mg PO Q12HR #14 cap 11/11/20 [Macrobid] Allergies Allergy/AdvReac Type Severity Reaction Status Date / Time No Known Allergies Allergy Verified 11/11/20 11:34 Review of Systems ROS Statement: Those systems with pertinent positive or pertinent negative responses have been documented in the HPI. ROS Other: All systems not noted in ROS Statement are negative. Past Medical History Past Medical History: COPD Additional Past Medical History / Comment(s): past lt wrist fx-casted. 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 Past Anesthesia/Blood Transfusion Reactions: No Reported Reaction Past Psychological History: No Psychological Hx Reported Smoking Status: Current every day smoker Past Alcohol Use History: None Reported Past Drug Use History: None Reported - Past Family History Mother Additional Family Medical History / Comment(s): "leaky heart valve' Father Family Medical History: Myocardial Infarction ([place]) Additional Family Medical History / Comment(s): in his sleep General Exam Limitations: no limitations General appearance: alert, in no apparent distress, obese Head exam: Present: atraumatic, normocephalic, normal inspection Eye exam: Present: normal appearance, PERRL, EOMI Pupils: Present: normal accommodation ENT exam: Present: normal exam, normal oropharynx, mucous membranes moist Neck exam: Present: normal inspection, full ROM. Absent: tenderness Respiratory exam: Present: normal lung sounds bilaterally. Absent: respiratory distress Cardiovascular Exam: Present: regular rate, normal rhythm, normal heart sounds. Absent: systolic murmur GI/Abdominal exam: Present: soft. Absent: distended, tenderness, guarding, rebound Extremities exam: Present: normal inspection, full ROM, normal capillary refill. Absent: tenderness, pedal edema, joint swelling Back exam: Present: normal inspection, full ROM. Absent: tenderness, CVA tenderness (R), CVA tenderness (L) Neurological exam: Present: alert, oriented X3, normal gait Psychiatric exam: Present: normal affect, normal mood Skin exam: Present: warm, dry, intact, normal color Course Vital Signs 11/11/20 11:34 Temperature 98.0 F Pulse Rate 94 Respiratory 16 Rate Blood Pressure 120/73 O2 Sat by Pulse 98 Oximetry EKG Findings - EKG Comments: EKG Findings:: Sinus rhythm with no acute ischemic changes. Ventricular rate 57, VT 154, QRS 70, QTC 430. Medical Decision Making - Medical Decision Making 65-year-old female presents to emergency Department with a chief complaint of weakness. Physical examination is unremarkable. Vital signs are within normal limits. EKG showing no acute ischemic changes. Chest x-ray is unremarkable. CBC shows mild anemia with a hemoglobin of 11.2. CMP is unremarkable. UA is positive for urinary tract infection with elevated leukocyte esterase and white blood cells. Urine culture is pending. Patient will be started on Rocephin and discharged with a seven-day course of Macrobid. Strict return parameters were thoroughly discussed with patient was understanding and agreeable. Case discussed with Dr. Tripathi. - Lab Data Result diagrams: 11/11/20 12:30 11/11/20 12:30 Lab Results 11/11/20 11/11/20 11/11/20 Range/Units 12:30 12:30 12:30 WBC 6.8 (3.8-10.6) k/uL RBC 3.75 L (3.80-5.40) m/uL Hgb 11.2 L (11.4-16.0) gm/dL Hct 33.6 L (34.0-46.0) % MCV 89.6 (80.0-100.0) fL MCH 29.8 (25.0-35.0) pg MCHC 33.3 (31.0-37.0) g/dL RDW 14.1 (11.5-15.5) % Plt Count 397 (150-450) k/uL MPV 6.8 Neutrophils % 80 % Lymphocytes % 9 % Monocytes % 8 % Eosinophils % 2 % Basophils % 0 % Neutrophils # 5.4 (1.3-7.7) k/uL Lymphocytes # 0.6 L (1.0-4.8) k/uL Monocytes # 0.6 (0-1.0) k/uL Eosinophils # 0.1 (0-0.7) k/uL Basophils # 0.0 (0-0.2) k/uL Poikilocytosis Slight Sodium 137 (137-145) mmol/L Potassium 4.1 (3.5-5.1) mmol/L Chloride 105 (98-107) mmol/L Carbon Dioxide 26 (22-30) mmol/L Anion Gap 6 mmol/L BUN 12 (7-17) mg/dL Creatinine 0.73 (0.52-1.04) mg/dL Est GFR (CKD-EPI)AfAm >90 (>60 ml/min/1.73 sqM) Est GFR (CKD-EPI)NonAf 87 (>60 ml/min/1.73 sqM) Glucose 102 H (74-99) mg/dL Calcium 9.1 (8.4-10.2) mg/dL Total Bilirubin 0.4 (0.2-1.3) mg/dL AST 23 (14-36) U/L ALT 10 (4-34) U/L Alkaline Phosphatase 106 (38-126) U/L Troponin I (0.000-0.034) ng/mL Total Protein 8.1 (6.3-8.2) g/dL Albumin 3.5 (3.5-5.0) g/dL Urine Color Urine Appearance (Clear) Urine pH (5.0-8.0) Ur Specific [place] (1.001-1.035) Urine Protein (Negative) Urine Glucose (UA) (Negative) Urine Ketones (Negative) Urine Blood (Negative) Urine Nitrite (Negative) Urine Bilirubin (Negative) Urine Urobilinogen (<2.0) mg/dL Ur Leukocyte Esterase (Negative) Urine RBC (0-5) /hpf Urine WBC (0-5) /hpf Urine WBC Clumps (None) /hpf Ur Squamous Epith Cells (0-4) /hpf Amorphous Sediment (None) /hpf Urine Bacteria (None) /hpf Coronavirus (PCR) Not Detected (Not Detectd) 11/11/20 11/11/20 Range/Units 12:30 13:18 WBC (3.8-10.6) k/uL RBC (3.80-5.40) m/uL Hgb (11.4-16.0) gm/dL Hct (34.0-46.0) % MCV (80.0-100.0) fL MCH (25.0-35.0) pg MCHC (31.0-37.0) g/dL RDW (11.5-15.5) % Plt Count (150-450) k/uL MPV Neutrophils % % Lymphocytes % % Monocytes % % Eosinophils % % Basophils % % Neutrophils # (1.3-7.7) k/uL Lymphocytes # (1.0-4.8) k/uL Monocytes # (0-1.0) k/uL Eosinophils # (0-0.7) k/uL Basophils # (0-0.2) k/uL Poikilocytosis Sodium (137-145) mmol/L Potassium (3.5-5.1) mmol/L Chloride (98-107) mmol/L Carbon Dioxide (22-30) mmol/L Anion Gap mmol/L BUN (7-17) mg/dL Creatinine (0.52-1.04) mg/dL Est GFR (CKD-EPI)AfAm (>60 ml/min/1.73 sqM) Est GFR (CKD-EPI)NonAf (>60 ml/min/1.73 sqM) Glucose (74-99) mg/dL Calcium (8.4-10.2) mg/dL Total Bilirubin (0.2-1.3) mg/dL AST (14-36) U/L ALT (4-34) U/L Alkaline Phosphatase (38-126) U/L Troponin I <0.012 (0.000-0.034) ng/mL Total Protein (6.3-8.2) g/dL Albumin (3.5-5.0) g/dL Urine Color Light Yellow Urine Appearance Cloudy H (Clear) Urine pH 6.5 (5.0-8.0) Ur Specific [place] 1.007 (1.001-1.035) Urine Protein Trace H (Negative) Urine Glucose (UA) Negative (Negative) Urine Ketones Negative (Negative) Urine Blood Small H (Negative) Urine Nitrite Negative (Negative) Urine Bilirubin Negative (Negative) Urine Urobilinogen <2.0 (<2.0) mg/dL Ur Leukocyte Esterase Large H (Negative) Urine RBC 2 (0-5) /hpf Urine WBC >182 H (0-5) /hpf Urine WBC Clumps Moderate H (None) /hpf Ur Squamous Epith Cells 1 (0-4) /hpf Amorphous Sediment Rare H (None) /hpf Urine Bacteria Rare H (None) /hpf Coronavirus (PCR) (Not Detectd) Disposition Clinical Impression: Urinary tract infection, Weakness Disposition: HOME SELF-CARE Condition: Stable Instructions (If sedation given, give patient instructions): Urinary Tract Infection in Women (ED) Additional Instructions: Please return to the Emergency Department if symptoms worsen or any other concerns. Prescriptions: Nitrofurantoin Monohyd/M-Cryst [Macrobid] 100 mg PO Q12HR #14 cap Is patient prescribed a controlled substance at d/c from ED?: No Referrals: Paulette Childs MD [Primary Care Provider] - 1-2 days Time of Disposition: 13:52
[2020-11-11 12:50] LABS: Basophils % (A) 0 %; Eosinophils # (A) 0.1 k/uL (0-0.7); Eosinophils % (A) 2 %; HCT 33.6 % (34.0-46.0); HGB 11.2 gm/dL (11.4-16.0); Lymphocytes # (A) 0.6 k/uL (1.0-4.8); Lymphocytes % (A) 9 %; MCH 29.8 pg (25.0-35.0); MCHC 33.3 g/dL (31.0-37.0); MCV 89.6 fL (80.0-100.0); Mean Platelet Volume 6.8; Monocytes # (A) 0.6 k/uL (0-1.0); Monocytes % (A) 8 %; Neutrophils # (A) 5.4 k/uL (1.3-7.7); Neutrophils % (A) 80 %; Platelet Count 397 k/uL (150-450); Poikilocytosis Slight; RBC 3.75 m/uL (3.80-5.40); RDW 14.1 % (11.5-15.5); WBC 6.8 k/uL (3.8-10.6)
--- NOTE | 2020-11-11 12:55 | XR ---
EXAMINATION TYPE: XR chest 2V DATE OF EXAM: 11/11/2020 COMPARISON: Chest x-ray 05/26/2019, CT HISTORY: Shortness of breath, weakness, fever TECHNIQUE: Frontal and lateral views of the chest are obtained. FINDINGS: There is no focal air space opacity, pleural effusion, or pneumothorax seen. The cardiac silhouette size is stable. The osseous structures are intact, there is a spinal curvature. Aorta is dense. IMPRESSION: No acute cardiopulmonary process.
[2020-11-11 12:57] LABS: ALT 10 U/L (4-34); AST 23 U/L (14-36); African American GFR (CKD) >90 (>60 ml/min/1.73 sqM); Albumin 3.5 g/dL (3.5-5.0); Alkaline Phosphatase 106 U/L (38-126); Anion Gap 6 mmol/L; Blood Urea Nitrogen 12 mg/dL (7-17); Calcium 9.1 mg/dL (8.4-10.2); Carbon Dioxide 26 mmol/L (22-30); Chloride 105 mmol/L (98-107); Glucose 102 mg/dL (74-99); Non-African American GFR(CKD) 87 (>60 ml/min/1.73 sqM); Potassium 4.1 mmol/L (3.5-5.1); Sodium 137 mmol/L (137-145); Total Bilirubin 0.4 mg/dL (0.2-1.3); Total Protein 8.1 g/dL (6.3-8.2)
[2020-11-11 13:34] LABS: Amorphous Sediment,Urine Rare /hpf; Appearance,Urine Cloudy (Clear); Bacteria,Urine Rare /hpf; Bilirubin,Urine Negative (Negative); Blood,Urine Small (Negative); Color,Urine Light Yellow; Glucose,Urine (UA) Negative (Negative); Ketones,Urine Negative (Negative); Leukocyte Esterase,Urine Large (Negative); Nitrite,Urine Negative (Negative); PH, Urine 6.5 (5.0-8.0); Protein,Urine Trace (Negative); RBC,Urine 2 /hpf (0-5); Specific Gravity,Urine 1.007 (1.001-1.035); Squamous Epithelial Cell,Urine 1 /hpf (0-4); Urobilinogen,Urine <2.0 mg/dL (<2.0); WBC,Urine >182 /hpf (0-5)
[2020-11-11] MEDS ORDERED: cefTRIAXone IN SWFI 1,000 MG/10 ML SYRINGE IVP STA (13:41)
[2020-11-11 14:08] VITALS: BP 176/96; PULSE 75; RESP 18
== END 2020-11-11 14:30 | disposition home or self-care (01) ==
LOC: EC 11:28
DX: N39.0 Urinary tract infection, site not specified (principal); R53.1 Weakness; F17.200 Nicotine dependence, unspecified, uncomplicated; J44.9 Chronic obstructive pulmonary disease, unspecified; Z23 Encounter for immunization; Z20.822 Contact with and (suspected) exposure to COVID-19
CPT/HCPCS: 36415; 93005; 80053; 84484; 85025; 81001; 87086; 87635; 71046; 99285; 96374; 96361; J0696

== ENCOUNTER → 2021-07-12 | Outpatient (CLI) | payer MEDICARE, OTHER ==
--- NOTE | 2021-07-12 11:59 | XR ---
EXAMINATION TYPE: XR lumbosacral spine min 4V DATE OF EXAM: 07/12/2021 CLINICAL HISTORY: Back pain with left lumbar numbness TECHNIQUE: Frontal, lateral, and oblique images of the lumbar spine are obtained. COMPARISON: Lumbar spine x-ray April 04, 2014 FINDINGS: There are 5 lumbar type vertebral bodies redemonstrated. Worsening dextroconvex scoliosis centered at L4 level. Vertebral body heights are maintained. Nopbnmaj-[id number] multilevel spurring a nd disc space. Grade is a left L3-L4 level. Slight grade 1 retrolisthesis L3 on L4. Multilevel facet arthropathy greatest in the lower lumbar spine. Moderate overlying arterial vascular calcification. F acet arthropathy lower lumbar levels. Cholecystectomy clips. IMPRESSION: As above.
== END | disposition home or self-care (01) ==
LOC: RADXRMAIN 11:25
PROVIDERS: ATTEND Internal Medicine
DX: M47.816 Spondylosis without myelopathy or radiculopathy, lumbar region (principal); M41.86 Other forms of scoliosis, lumbar region; M43.16 Spondylolisthesis, lumbar region; Z90.49 Acquired absence of other specified parts of digestive tract
CPT/HCPCS: 72110

== ENCOUNTER 2022-02-25 23:29 | Emergency (ER) | payer MEDICARE, OTHER ==
[2022-02-25 23:42] VITALS: BP 164/85; PULSE 69; RESP 18; TEMP 98.1
[2022-02-26] MEDS ORDERED: predniSONE 50 MG TAB PO STA (02:25)
--- NOTE | 2022-02-26 02:44 | ED ---
Back Pain HPI - General Chief Complaint: Back Pain/Injury Stated Complaint: Left Leg Pain Time Seen by Provider: 02/26/22 01:33 Source: patient, RN notes reviewed Limitations: no limitations - History of Present Illness Initial Comments: This is a pleasant 66-year-old female with history of chronic back pain. Patient states that she has had pain for over a few years. She states over the past few weeks she is getting pain in her lower back which is causing her to fall twice. Patient states she is getting a tingling sensation down the left leg. No problems with bowel movements or urination. No fever or chills. No direct trauma on the back. Patient is not diabetic or immunocompromised. No recent instrumentation. Pain is exacerbated by movement, alleviated by rest. No headache, no fever or chills, no changes in vision or hearing, no sore throat or difficulty with speech, no neck pain, no chest pain or shortness of breath, no abdominal pain, no nausea or vomiting, no changes in urination or bowel movements, no no extremity pain, no skin rashes or lesions. Past medical, surgical, social, and family history reviewed. Patient states she has previously seen a back specialist that she is not a candidate for back surgery. MD Complaint: back pain - Related Data Home Medications Medication Instructions Recorded Confirmed Ergocalciferol [Vitamin D2 (1250 1,250 mcg PO FR 11/11/20 11/11/20 Mcg = 29221 Iu)] HYDROcodone/APAP 7.5-325MG [[place] 1 tab PO TID PRN 11/11/20 11/11/20 7.5-325] Ibuprofen [Motrin Ib] 400 mg PO Q8H PRN 11/11/20 11/11/20 Ipratropium/Albuterol Sulfate 1 puff INHALATION RT-QID 11/11/20 11/11/20 [Combivent Respimat Inhaler] Levothyroxine Sodium [Synthroid] 25 mcg PO DAILY 11/11/20 11/11/20 Previous Rx's Medication Instructions Recorded Nitrofurantoin Monohyd/M-Cryst 100 mg PO Q12HR #14 cap 11/11/20 [Macrobid] methylPREDNISolone Dose Pack 4 mg PO DIRECTED #21 tab 02/26/22 [Medrol Dose Pack] Allergies Allergy/AdvReac Type Severity Reaction Status Date / Time No Known Allergies Allergy Verified 02/25/22 23:42 Review of Systems ROS Statement: Those systems with pertinent positive or pertinent negative responses have been documented in the HPI. ROS Other: All systems not noted in ROS Statement are negative. Past Medical History Past Medical History: COPD Additional Past Medical History / Comment(s): past lt wrist fx-casted. 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 Past Anesthesia/Blood Transfusion Reactions: No Reported Reaction Past Psychological History: No Psychological Hx Reported Smoking Status: Current every day smoker Past Alcohol Use History: None Reported Past Drug Use History: None Reported - Past Family History Mother Additional Family Medical History / Comment(s): "leaky heart valve' Father Family Medical History: Myocardial Infarction ([place]) Additional Family Medical History / Comment(s): in his sleep General Exam - General Exam Comments Initial Comments: Nontoxic-appearing 66-year-old female in no acute distress. Blood pressure noted be 164/85. Limitations: no limitations General appearance: alert, in no apparent distress Head exam: Present: atraumatic, normocephalic, normal inspection Eye exam: Present: normal appearance, PERRL, EOMI. Absent: scleral icterus, conjunctival injection, periorbital swelling ENT exam: Present: normal exam, mucous membranes moist Neck exam: Present: normal inspection, full ROM. Absent: tenderness, meningismus, lymphadenopathy Respiratory exam: Present: normal lung sounds bilaterally. Absent: respiratory distress, wheezes, rales, rhonchi, stridor Cardiovascular Exam: Present: regular rate, normal rhythm, normal heart sounds. Absent: systolic murmur, diastolic murmur, rubs, gallop, clicks GI/Abdominal exam: Present: soft, normal bowel sounds. Absent: distended, tenderness, guarding, rebound, rigid Extremities exam: Present: normal inspection, full ROM, normal capillary refill. Absent: tenderness, pedal edema, joint swelling, calf tenderness Back exam: Present: normal inspection, full ROM (Range of motion essentially full with pain), tenderness (Lumbar paraspinal tenderness no midline tenderness), paraspinal tenderness, other (Straight leg raise is negative on the right, positive on the left at about 30. Patient has what appears to be paresthesias in the L4 dermatome.). Absent: muscle spasm, vertebral tenderness, rash noted Neurological exam: Present: alert, oriented X3, CN II-XII intact, normal gait, reflexes normal (Patellar reflexes intact. Great toe extensor strength is normal. Achilles reflex normal.). Absent: altered, abnormal gait Psychiatric exam: Present: normal affect, normal mood Skin exam: Present: warm, dry, intact, normal color. Absent: rash, cyanosis, diaphoretic, erythema, urticaria, vesicles, mottled, abrasion Course Vital Signs 02/25/22 23:39 Temperature 98.1 F Pulse Rate 69 Respiratory 18 Rate Blood Pressure 164/85 O2 Sat by Pulse 99 Oximetry Medical Decision Making - Medical Decision Making Symptomology consistent with lumbar radiculopathy. Patient has no red flags otherwise. -There are no red flags for concerning back pathology. Specifically: -No history of cancer, this is not a mass effect, MRI not indicated. -No anticoagulation, this is not a bleed. -No fevers, no IVDU, this is not an infectious process. -With a normal neuro exam, and no urinary or bowel retention or incontinence, there is no clinical sign of motor defect or cauda equina - MRI is not indicated at this point. -No pulsating abdominal mass or risk factors for AAA. -Pain is relieved with rest, which is also less concerning. -I do not believe that x-rays or emergent MRI is indicated at this time. -We will treat symptomatically and discharge home with follow up instructions. -Stretching/strengthening exercise given to patient and they will be referred to physical therapy -Patient is instructed to use [id number] analgesics as directed on packaging for pain. Patient was told to return to the ER for any signs or symptoms worsen. Told to return immediately if any other problems arise. All questions answered. Treatment plan discussed. Patient in agreement Every effort has been made to ensure accuracy of this dictation. However, due to the limitations of electronic medical records and dictation devices, errors in charting still occur. Repair Weaver Dr. Mace - Radiology Data Radiology results: report reviewed (Degenerative changes noted. No evidence of acute pathology.), image reviewed Disposition Clinical Impression: Low back pain, Left lumbar radiculopathy, Poorly-controlled hypertension, Cigarette smoker, DJD (degenerative joint disease), lumbar Disposition: HOME SELF-CARE Condition: Stable Instructions (If sedation given, give patient instructions): Lumbar Radiculopathy (ED) Additional Instructions: Follow-up with your regular physician as directed. Return to the ER immediately if any symptoms worsen, new symptoms arise, or any other problems develop. Take the Medrol Dosepak as directed. He can also use Tylenol in addition to tramadol. Prescriptions: methylPREDNISolone Dose Pack [Medrol Dose Pack] 4 mg PO DIRECTED #21 tab Is patient prescribed a controlled substance at d/c from ED?: No Referrals: Paulette Childs MD [Primary Care Provider] - 03/04/22 Time of Disposition: 02:59
--- NOTE | 2022-02-26 02:54 | XR ---
EXAMINATION TYPE: XR lumbar spine 2 or 3V DATE OF EXAM: 02/26/2022 COMPARISON: 07/12/2021 HISTORY: Back pain TECHNIQUE: 3 views FINDINGS: There is a mild lumbar dextroscoliosis. There is degenerative disc space narrowing througho ut the lumbar spine with spur formation and sclerosis. Sacroiliac joints are intact. There are clips from cholecystectomy. No compression fracture. IMPRESSION: Multilevel spondylotic changes with dextroscoliosis. No fracture. No significant change c ompared to old exam.
== END 2022-02-26 03:18 | disposition home or self-care (01) ==
LOC: EC 23:29
DX: M54.16 Radiculopathy, lumbar region (principal); I10 Essential (primary) hypertension; M19.90 Unspecified osteoarthritis, unspecified site; F17.210 Nicotine dependence, cigarettes, uncomplicated; J44.9 Chronic obstructive pulmonary disease, unspecified; Z79.899 Other long term (current) drug therapy
CPT/HCPCS: 72100; 99284

== ENCOUNTER → 2022-03-21 | Outpatient (CLI) | payer MEDICARE ==
--- NOTE | 2022-03-21 15:27 | MR ---
EXAMINATION TYPE: MR lumbar spine wo con DATE OF EXAM: 03/21/2022 COMPARISON: 02/16/2020 HISTORY: Lower back pain, BLE radiculopathy, greater on the left side. CONTRAST: 0 mL intravenous Gadavist. TECHNIQUE: Multiplanar, multisequence images of the lumbar spine were acquired. FINDINGS: Scoliosis is present. There is a left renal cyst present. L5-S1: Broad-based disc bulge has mild anterior thecal sac compression. Disc space narrowing is prese nt. Facet hypertrophy is present. Severe right and left foraminal stenosis is present. L4-L5: Mild broad-based disc bulge is present with anterior thecal sac contact. Facet hypertrophy is present. No spinal canal stenosis is present. There is moderate right and severe left foraminal steno sis. Mild Modic type II endplate changes are present. L3-L4: Broad-based left paracentral disc bulge is present with mild to moderate anterior thecal sac c ompression. No AP spinal canal stenosis present. Mild facet hypertrophy is present. Some ligamentum f lavum laxity is left posterior lateral thecal sac compression. Moderate left and mild right foraminal stenosis is present. L2-L3: Broad-based disc bulge has mild anterior thecal sac compression. Facet hypertrophy is present greater on the left. Mild right and moderate left foraminal stenosis is present. Modic type II degene rative changes along the superior endplate of L3. L1-L2: Broad-based disc bulge is mild anterior thecal sac compression. Facet hypertrophy is present. No spinal canal stenosis stenosis. There is some right foraminal narrowing present. T12-L1: Disc space narrowing is present. No spinal canal stenosis is present. This is slightly asymme tric bulging greater to the right paracentral region. Right foraminal stenosis is present. IMPRESSION: 1. Multilevel disc bulges with mild anterior thecal sac compression discussed above. 2. Foraminal stenosis present throughout the lumbar spine. This appears greatest with severe stenosis bilaterally at L5-S1 and left L4-5 foraminal stenosis.
== END | disposition home or self-care (01) ==
LOC: RADMRIMAIN 10:34
PROVIDERS: ATTEND Internal Medicine
DX: M48.56XA Collapsed vertebra, not elsewhere classified, lumbar region, initial encounter for fracture (principal); M51.26 Other intervertebral disc displacement, lumbar region; M99.73 Connective tissue and disc stenosis of intervertebral foramina of lumbar region
CPT/HCPCS: 72148

== ENCOUNTER 2023-12-31 20:28 | Inpatient (IN) | payer MEDICARE ==
--- NOTE | 2023-12-31 20:36 | ED ---
Neuro HPI - General Chief Complaint: Neuro Symptoms/Deficit Stated Complaint: Left Side Numbness Time Seen by Provider: 12/31/23 20:35 Source: family, RN notes reviewed, old records reviewed, Caregiver Mode of arrival: wheelchair Limitations: no limitations - History of Present Illness Is the patient presenting with stroke symptoms?: Yes -: hour(s) Initial Comments: This is a 68-year-old female to ER for evaluation of left-sided facial numbness facial droop as well as inability to move the left side of her mouth, patient has slurred speech as well noted around noon today and symptoms are being pers istent has no history of high blood pressure high cholesterol diabetes or prior CVA Location: speech, left face, dysarthria Place: home Severity: severe Improves With: none Worsens With: none Associated Symptoms: denies other symptoms Treatments Prior to Arrival: none - Related Data Home Medications: Home Medications Medication Instructions Recorded Confirmed HYDROcodone/APAP 7.5-325MG [Mineral 1 tab PO Q6HR PRN 01/01/24 01/01/24 7.5-325] Levothyroxine Sodium [Synthroid] 137 mcg PO DAILY 01/01/24 01/01/24 Pantoprazole Sodium [Protonix] 40 mg PO DAILY 01/01/24 01/01/24 Previous Rx's Medication Instructions Recorded Aspirin EC [Ecotrin Low Dose] 81 mg PO DAILY 30 Days #30 tab 01/05/24 Atorvastatin [Lipitor] 80 mg PO HS 30 Days #30 tab 01/05/24 Clopidogrel [Plavix] 75 mg PO DAILY 30 Days #30 tab 01/05/24 Nicotine 14Mg/24Hr Patch [Habitrol] 1 patch TRANSDERM DAILY 30 Days 01/05/24 #30 patch Allergies/Adverse Reactions: Allergies Allergy/AdvReac Type Severity Reaction Status Date / Time No Known Allergies Allergy Verified 01/01/24 08:18 Review of Systems ROS Statement: Those systems with pertinent positive or pertinent negative responses have been documented in the HPI. ROS Other: All systems not noted in ROS Statement are negative. General Exam - General Exam Comments Initial Comments: NIH of 4 Limitations: no limitations General appearance: alert, in no apparent distress Head exam: Present: atraumatic, normocephalic, normal inspection Eye exam: Present: normal appearance, PERRL, EOMI. Absent: scleral icterus, conjunctival injection, periorbital swelling ENT exam: Present: normal exam, mucous membranes moist Neck exam: Present: normal inspection. Absent: tenderness, meningismus, lymphadenopathy Respiratory exam: Present: normal lung sounds bilaterally. Absent: respiratory distress, wheezes, rales, rhonchi, stridor Cardiovascular Exam: Present: regular rate, normal rhythm, normal heart sounds. Absent: systolic murmur, diastolic murmur, rubs, gallop, clicks GI/Abdominal exam: Present: soft, normal bowel sounds. Absent: distended, tenderness, guarding, rebound, rigid Extremities exam: Present: normal inspection, full ROM, normal capillary refill. Absent: tenderness, pedal edema, joint swelling, calf tenderness Back exam: Present: normal inspection Neurological exam: Present: alert, oriented X3, CN II-XII intact Psychiatric exam: Present: normal affect, normal mood Skin exam: Present: warm, dry, intact, normal color. Absent: rash Stroke MDM - Lab Data Result diagrams: 01/05/24 10:34 01/05/24 10:34 Lab Results 12/31/23 12/31/23 12/31/23 Range/Units 20:42 20:42 20:42 WBC 5.8 (3.8-10.6) k/uL RBC 4.38 (3.80-5.40) m/uL Hgb 13.9 (11.4-16.0) gm/dL Hct 42.4 (34.0-46.0) % MCV 96.7 (80.0-100.0) fL MCH 31.8 (25.0-35.0) pg MCHC 32.9 (31.0-37.0) g/dL RDW 13.8 (11.5-15.5) % Plt Count 241 (150-450) k/uL MPV 7.5 Neutrophils % 71 % Lymphocytes % 12 % Monocytes % 10 % Eosinophils % 4 % Basophils % 0 % Neutrophils # 4.2 (1.3-7.7) k/uL Lymphocytes # 0.7 L (1.0-4.8) k/uL Monocytes # 0.6 (0-1.0) k/uL Eosinophils # 0.2 (0-0.7) k/uL Basophils # 0.0 (0-0.2) k/uL PT 9.8 L (10.0-12.5) sec INR 0.9 (<1.2) APTT 22.4 (22.0-30.0) sec Sodium 137 (137-145) mmol/L Potassium 4.5 (3.5-5.1) mmol/L Chloride 110 H (98-107) mmol/L Carbon Dioxide 21 L (22-30) mmol/L Anion Gap 6 mmol/L BUN 21 H (7-17) mg/dL Creatinine 0.64 (0.52-1.04) mg/dL Est GFR (CKD-EPI)AfAm >90 (>60 ml/min/1.73 sqM) Est GFR (CKD-EPI)NonAf >90 (>60 ml/min/1.73 sqM) Glucose 83 (74-99) mg/dL Estimated Ave Glu mg/dL mg/dL Hemoglobin A1c (<=6.0) % Calcium 9.2 (8.4-10.2) mg/dL Total Bilirubin 0.5 (0.2-1.3) mg/dL AST 39 H (14-36) U/L ALT 19 (4-34) U/L Alkaline Phosphatase 131 H (38-126) U/L Creatine Kinase 118 (30-135) U/L Troponin I (0.000-0.034) ng/mL Total Protein 9.0 H (6.3-8.2) g/dL Albumin 4.1 (3.5-5.0) g/dL Triglycerides (0.00-149.00) mg/dL Cholesterol (0.00-200.00) mg/dL LDL Cholesterol, Calc (0.0-131.0) mg/dL VLDL Cholesterol, Calc (5.00-40.00) mg/dL HDL Cholesterol (40.00-60.00) mg/dL Cholesterol/HDL Ratio Ratio 12/31/23 12/31/23 12/31/23 Range/Units 20:42 20:42 20:42 WBC (3.8-10.6) k/uL RBC (3.80-5.40) m/uL Hgb (11.4-16.0) gm/dL Hct (34.0-46.0) % MCV (80.0-100.0) fL MCH (25.0-35.0) pg MCHC (31.0-37.0) g/dL RDW (11.5-15.5) % Plt Count (150-450) k/uL MPV Neutrophils % % Lymphocytes % % Monocytes % % Eosinophils % % Basophils % % Neutrophils # (1.3-7.7) k/uL Lymphocytes # (1.0-4.8) k/uL Monocytes # (0-1.0) k/uL Eosinophils # (0-0.7) k/uL Basophils # (0-0.2) k/uL PT (10.0-12.5) sec INR (<1.2) APTT (22.0-30.0) sec Sodium (137-145) mmol/L Potassium (3.5-5.1) mmol/L Chloride (98-107) mmol/L Carbon Dioxide (22-30) mmol/L Anion Gap mmol/L BUN (7-17) mg/dL Creatinine (0.52-1.04) mg/dL Est GFR (CKD-EPI)AfAm (>60 ml/min/1.73 sqM) Est GFR (CKD-EPI)NonAf (>60 ml/min/1.73 sqM) Glucose (74-99) mg/dL Estimated Ave Glu mg/dL 105 mg/dL Hemoglobin A1c 5.3 (<=6.0) % Calcium (8.4-10.2) mg/dL Total Bilirubin (0.2-1.3) mg/dL AST (14-36) U/L ALT (4-34) U/L Alkaline Phosphatase (38-126) U/L Creatine Kinase (30-135) U/L Troponin I <0.012 (0.000-0.034) ng/mL Total Protein (6.3-8.2) g/dL Albumin (3.5-5.0) g/dL Triglycerides 372.00 H (0.00-149.00) mg/dL Cholesterol 215.00 H (0.00-200.00) mg/dL LDL Cholesterol, Calc 103.1 (0.0-131.0) mg/dL VLDL Cholesterol, Calc 74.40 H (5.00-40.00) mg/dL HDL Cholesterol 37.50 L (40.00-60.00) mg/dL Cholesterol/HDL Ratio 5.73 Ratio - NIH Stroke Scale 1a. Level of Consciousness: (0) alert 1b. LOC Questions: (0) answers correctly 1c. LOC Commands: (0) performs tasks correctly 2. Best Gaze: (0) normal 3. Visual: (0) no visual loss 4. Facial Palsy: (0) normal symmetrical movement 5a. Motor Arm Left: (1) drift 5b. Motor Arm Right: (0) no drift 6a. Motor Leg Left: (0) no drift 6b. Motor Leg Right: (0) no drift 7. Limb Ataxia: (1) present 1 limb 8. Sensory: (1) mild/moderate sensory loss 9. Best Language: (1) mild/moderate aphasia 10. Dysarthria: (1) mild/moderate dysarthria 11. Extinction/Inattention: (0) no abnormality - Thrombolytic Inclusion/Exclusion Thrombolytic Exclusion Criteria: Symptom Onset > 4.5 Hours - Medical Decision Making 68 male with will be admitted for CVA symptoms. Patient is difficult to discern between Pacheco's palsy versus CVA, left-sided facial numbness slurred speech, patient has no extremity findings here in the emergency room will be admitted for possible CVA blood pressure mildly elevated - Radiology Data Radiology results: report reviewed (CT brain and CTA head neck negative for acute disease), image reviewed - EKG Data -: EKG Interpreted by Me (EKG is sinus 79 ID 170 QRS 78 QTc 392) Past Medical History Past Medical History: COPD Additional Past Medical History / Comment(s): past lt wrist fx-casted. 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 Past Anesthesia/Blood Transfusion Reactions: No Reported Reaction Past Psychological History: No Psychological Hx Reported Smoking Status: Current every day smoker Past Alcohol Use History: None Reported Past Drug Use History: None Reported - Past Family History Mother Additional Family Medical History / Comment(s): "leaky heart valve' Father Family Medical History: Myocardial Infarction ([place]) Additional Family Medical History / Comment(s): in his sleep Course Vital Signs 12/31/23 12/31/23 01/01/24 20:30 22:29 03:05 Temperature 98.4 F Pulse Rate 86 58 L 60 Pulse Rate [ Corn Crop Supervisor ] Respiratory 18 18 18 Rate Blood Pressure 172/78 176/81 164/74 Blood Pressure [Right Arm] O2 Sat by Pulse 96 96 98 Oximetry 01/01/24 01/01/24 01/01/24 06:24 09:12 12:00 Temperature Pulse Rate 53 L Pulse Rate [ 62 70 Corn Crop Supervisor ] Respiratory 20 16 16 Rate Blood Pressure 166/74 Blood Pressure 174/69 172/85 [Right Arm] O2 Sat by Pulse 98 Oximetry 01/01/24 01/01/24 01/01/24 14:00 15:00 19:17 Temperature Pulse Rate 69 74 Pulse Rate [ 57 L Corn Crop Supervisor ] Respiratory 18 16 18 Rate Blood Pressure 160/89 160/89 Blood Pressure 114/75 [Right Arm] O2 Sat by Pulse 96 96 Oximetry 01/02/24 01/02/24 01/02/24 00:53 05:07 08:13 Temperature 98.7 F Pulse Rate 68 62 Pulse Rate [ 58 L Corn Crop Supervisor ] Respiratory 20 20 20 Rate Blood Pressure 156/55 155/95 Blood Pressure 174/87 [Right Arm] O2 Sat by Pulse 98 98 97 Oximetry 01/02/24 01/02/24 01/02/24 11:22 12:24 13:13 Temperature Pulse Rate Pulse Rate [ 67 61 61 Corn Crop Supervisor ] Respiratory 20 24 Rate Blood Pressure Blood Pressure 153/72 143/74 [Right Arm] O2 Sat by Pulse 96 99 Oximetry 01/02/24 15:38 Temperature 97.6 F Pulse Rate Pulse Rate [ 63 Corn Crop Supervisor ] Respiratory 20 Rate Blood Pressure Blood Pressure 143/81 [Right Arm] O2 Sat by Pulse 99 Oximetry - Reevaluation(s) Reevaluation #1: 12/31/23 22:42 Records reviewed 12/31/23 22:42 Spoke on patient arrival Reevaluation #2: 12/31/23 22:42 Patient has no improvement in symptoms here in the ER symptoms onset was noon, slurred speech was known at noon, patient is not a tPA candidate secondary to onset of symptoms Reevaluation #3: 12/31/23 22:43 Patient informed of results questions answered Reevaluation #4: Was pt. sent in by a medical professional or institution (, PA, PROTOCOL OFFICER, urgent care, hospital, or group home...) When possible be specific @ -no Did you speak to anyone other than the patient for history (EMS, parent, family, police, friend...)? What history was obtained from this source @ -no Did you review nursing and triage notes (agree or disagree)? Why? @ -agree Are old charts reviewed (outside hosp., previous admission, EMS record, old EKG, old radiological studies, urgent care reports/EKG's, group home records)? Report findings @ -yes Differential Diagnosis (chest pain, altered mental status, abdominal pain women, abdominal pain men, vaginal bleeding, weakness, fever, dyspnea, syncope, headache, dizziness, GI bleed, back pain, seizure, CVA, palpatations, mental health, musculoskeletal)? @ -prior EKG interpreted by me (3pts min.). @ -yes X-rays interpreted by me (1pt min.). @ -no CT interpreted by me (1pt min.). @ -Chest negative for acute disease U/S interpreted by me (1pt. min.). @ -no What testing was considered but not performed or refused? (CT, X-rays, U/S, labs)? Why? @ -none What meds were considered but not given or refused? Why? @ -none Did you discuss the management of the patient with other professionals (professionals i.e. , PA, PROTOCOL OFFICER, lab, RT, psych nurse, 7th grade social studies teacher, preparer samples and repairs, teacher, patient safety officer, director case management)? Give summary @ -no Was smoking cessation discussed for >3mins.? @ -no Was critical care preformed (if so, how long)? @ -no Were there social determinants of health that impacted care today? How? (Homelessness, low income, unemployed, alcoholism, drug addiction, transportation, low edu. Level, literacy, decrease access to med. care, long-term, rehab)? @ -none Was there de-escalation of care discussed even if they declined (Discuss DNR or withdrawal of care, Hospice)? DNR status @ -no What co-morbidities impacted this encounter? (DM, HTN, Smoking, COPD, CAD, Cancer, CVA, ARF, Chemo, Hep., AIDS, mental health diagnosis, sleep apnea, morbid obesity)? @ -none Was patient admitted / discharged? Hospital course, mention meds given and route, prescriptions, significant lab abnormalities, going to OR and other pert inent info. @ - 68 male with will be admitted for CVA symptoms. Patient is difficult to discern between Pacheco's palsy versus CVA, left-sided facial numbness slurred speech, patient has no extremity findings here in the emergency room will be admitted for possible CVA blood pressure mildly elevated Admitted Undiagnosed new problem with uncertain prognosis? @ -no Drug Therapy requiring intensive monitoring for toxicity (Heparin, Nitro, Insulin, Cardizem)? @ -no Were any procedures done? @ -no Diagnosis/symptom? @ -CVA Acute, or Chronic, or Acute on Chronic? @ -Acute Uncomplicated (without systemic symptoms) or Complicated (systemic symptoms)? @ -Complicated Side effects of treatment? @ -no Exacerbation, Progression, or Severe Exacerbation? @ -exacerbation Poses a threat to life or bodily function? How? (Chest pain, [place], [place], pneumonia, PE, COPD, DKA, ARF, appy, cholecystitis, CVA, Diverticulitis, Homicidal, Suicidal, threat to staff... and all critical care pts) @ -yes CVA Reevaluation #5: Differential CVA Ischemic stroke, hemorrhagic stroke, brain tumor, atypical migraine, Wernicke's encephalopathy, seizure, multiple sclerosis, meningitis, encephalitis, hypoglycemia, Guillain-Núñez, electrolytes disturbance, myasthenia gravis.... This is not meant to be an all-inclusive list - Consultations Consultation #1: Spoke with Dr. Childs who agrees to admit this patient Critical Care Time Critical Care Time: Yes Total Critical Care Time: 31 Disposition Clinical Impression: Cerebrovascular accident (CVA) Disposition: ADMITTED IP TO THIS [facility] Condition: Stable Is patient prescribed a controlled substance at d/c from ED?: No Time of Disposition: 22:50
[2023-12-31 20:52] LABS: Basophils % (A) 0 %; Eosinophils # (A) 0.2 k/uL (0-0.7); Eosinophils % (A) 4 %; HCT 42.4 % (34.0-46.0); HGB 13.9 gm/dL (11.4-16.0); Lymphocytes # (A) 0.7 k/uL (1.0-4.8); Lymphocytes % (A) 12 %; MCH 31.8 pg (25.0-35.0); MCHC 32.9 g/dL (31.0-37.0); MCV 96.7 fL (80.0-100.0); Mean Platelet Volume 7.5; Monocytes # (A) 0.6 k/uL (0-1.0); Monocytes % (A) 10 %; Neutrophils # (A) 4.2 k/uL (1.3-7.7); Neutrophils % (A) 71 %; Platelet Count 241 k/uL (150-450); RBC 4.38 m/uL (3.80-5.40); RDW 13.8 % (11.5-15.5); WBC 5.8 k/uL (3.8-10.6)
[2023-12-31 21:01] LABS: ALT 19 U/L (4-34); AST 39 U/L (14-36); African American GFR (CKD) >90 (>60 ml/min/1.73 sqM); Albumin 4.1 g/dL (3.5-5.0); Alkaline Phosphatase 131 U/L (38-126); Anion Gap 6 mmol/L; Blood Urea Nitrogen 21 mg/dL (7-17); Calcium 9.2 mg/dL (8.4-10.2); Carbon Dioxide 21 mmol/L (22-30); Chloride 110 mmol/L (98-107); Creatine Kinase 118 U/L (30-135); Glucose 83 mg/dL (74-99); Non-African American GFR(CKD) >90 (>60 ml/min/1.73 sqM); Potassium 4.5 mmol/L (3.5-5.1); Sodium 137 mmol/L (137-145); Total Bilirubin 0.5 mg/dL (0.2-1.3)
[2023-12-31 21:06] LABS: INR 0.9 (<1.2); Partial Thromboplastin Time 22.4 sec (22.0-30.0); Prothrombin Time 9.8 sec (10.0-12.5)
[2023-12-31] MEDS: SODIUM CHLORIDE 0.9% 1,000 ML IV STA (21:12)
--- NOTE | 2023-12-31 21:15 | CT ---
EXAMINATION TYPE: CT brain wo con DATE OF EXAM: 12/31/2023 HISTORY: 68 F with left side body weakness TECHNIQUE: CT scan of the head is performed without contrast. CT DLP: 1125.4 mGycm. Automated Exposure Control for Dose Reduction was Utilized. Left-sided COMPARISON: None. FINDINGS: There is no skull fracture or intracranial hemorrhage. No mass or mass effect. Mild bilateral leonard radiata and centrum semiovale low-attenuation is noted, a nonspecific finding which usually represent s small vessel ischemic change. There is no definite acute attenuation defect. Extra-axial compartment is negative. Paranasal sinuses and middle ear cavities and mastoid sinus air cells are clear. Orbits are unremarka ble. IMPRESSION: No definite acute process.
--- NOTE | 2023-12-31 22:06 | XR ---
EXAMINATION: XR chest 2V: 12/31/2023 9:51 PM CLINICAL INDICATION: altered mental status TECHNIQUE: Departmental protocol COMPARISON: 11/11/2020 FINDINGS/IMPRESSION: There is silhouetting of the pulmonary vasculature to a mild/moderate degree by a fine reticular leslie tammy of increased density bilaterally, findings which can correlate with a clinical diagnosis of inter stitial phase pulmonary edema. There is also partial consolidative opacity in the right infrahilar po sition suggesting the possibility of partial right lower lobe bronchopneumonia. The pleural spaces are negative. The cardiac silhouette is not enlarged. Aortic tortuosity noted. The skeletal structures and soft tissues are negative for acute findings.
--- NOTE | 2023-12-31 22:44 | CT ---
EXAMINATION TYPE: CT angio head neck DATE OF EXAM: 12/31/2023 HISTORY: weakness, Neuro deficit, acute, stroke suspected. Prior brain wo in pacs. COMPARISON: CT brain without contrast 12/31/2023 CT DLP: 494.2 mGycm. Automated Exposure Control for Dose Reduction was Utilized. TECHNIQUE: CTA scan of the head and neck is performed with IV Contrast, patient injected with 65cc m L of Isovue 370, axial images are obtained, coronal and sagittal reformatted images are reviewed. 3D reconstructed images are created on an independent workstation and reviewed. FINDINGS: CTA NECK: The bilateral carotid and vertebral arterial systems are negative for hemodynamically signi ficant stenosis, dissection, or other focal abnormality. Generalized atherosclerotic tortuosity is no kaiden. Venous structures are unremarkable. CTA BRAIN: The anterior and posterior arterial circulations are widely patent without hemodynamically significant stenosis, dissection, aneurysm or other focal findings. Dural venous sinuses are patent. No incidental extravascular acute findings. IMPRESSION: No significant CTA abnormality is seen. Incidental incidental findings include coronary calcifications, mildly dilated ascending aorta, and m ild nonspecific mediastinal adenopathy, which can be further characterized with six-week follow-up CT Chest with IV contrast. NASCET criteria was used in interpretation of this exam?
[2023-12-31] MEDS: ASPIRIN 325 MG TAB PO STA (23:10)
[2023-12-31] MEDS: SODIUM CHLORIDE 0.9% 1,000 ML IV SCH (23:18)
[2024-01-01] MEDS: HYDROcodone/APAP 7.5-325MG 1 EACH TAB PO ONE (03:18)
[2024-01-01] MEDS: ASPIRIN 325 MG TAB PO SCH (09:04)
[2024-01-01 09:17] LABS: Chol/HDL Ratio 5.73 Ratio; LDL Cholesterol,Calculated 103.1 mg/dL (0.0-131.0)
--- NOTE | 2024-01-01 10:54 | P.HPIM ---
History of Present Illness H&P Date: 01/01/24 Jasmyne Solorzano is a 68-year-old female patient who presented to ER with concerns ofleft-sided facial droop in slurred speech that started around noon yesterday. Patient has a past medical history ofCOPD, cholecystectomy and current every day smoker. head CT completed showing no definitive acute process.CTA showing no significant CT abnormality. Did show mildly dilated ascending aorta and mild nonspecific mediastinal edema the which could be followed up 6 week follow-up with CT of chest.labwork revealing white blood cell 5.8 hemoglobin 13.9 creatinine 0.64 bun 21. at this time patient will be admitted. Neurology and pulmonary service is consulted. MRI and 2-D echo has been ordered. PT OT and speech service is consulted Review of Systems please refer to HPI otherwise unremarkable Past Medical History Past Medical History: COPD Additional Past Medical History / Comment(s): past lt wrist fx-casted. 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 Past Anesthesia/Blood Transfusion Reactions: No Reported Reaction Past Psychological History: No Psychological Hx Reported Smoking Status: Current every day smoker Past Alcohol Use History: None Reported Past Drug Use History: None Reported - Past Family History Mother Additional Family Medical History / Comment(s): "leaky heart valve' Father Family Medical History: Myocardial Infarction ([place]) Additional Family Medical History / Comment(s): in his sleep Medications and Allergies Home Medications Medication Instructions Recorded Confirmed Type HYDROcodone/APAP 7.5-325MG [Victor 1 tab PO Q6HR PRN 01/01/24 01/01/24 History 7.5-325] Levothyroxine Sodium [Synthroid] 137 mcg PO DAILY 01/01/24 01/01/24 History Pantoprazole Sodium [Protonix] 40 mg PO DAILY 01/01/24 01/01/24 History Allergies Allergy/AdvReac Type Severity Reaction Status Date / Time No Known Allergies Allergy Verified 01/01/24 08:18 Physical Exam Vitals: Vital Signs Temp Pulse Pulse Resp BP BP Pulse Ox 01/01/24 09:12 62 16 174/69 01/01/24 06:24 53 L 20 166/74 98 01/01/24 03:05 60 18 164/74 98 12/31/23 22:29 58 L 18 176/81 96 12/31/23 20:30 98.4 F 86 18 172/78 96 Intake and Output 12/31/23 01/01/24 01/01/24 22:59 06:59 14:59 Other: Weight 72.575 kg Head normocephalic Neck supple Lungs clear to auscultation bilaterally no wheezing or crackles Heart regular rate and rhythm S1-S2, no rub or gallop Abdomen is soft nontender nondistended positive bowel sounds no hepatosplenomegaly Extremities no edema Neuro alert and orientated to 3. Left facial droop noted with slurred speech Results CBC & Chem 7: 12/31/23 20:42 12/31/23 20:42 Labs: Abnormal Lab Results - Last 24 Hours (Table) 12/31/23 12/31/23 12/31/23 Range/Units 20:42 20:42 20:42 Lymphocytes # 0.7 L (1.0-4.8) k/uL PT 9.8 L (10.0-12.5) sec Chloride 110 H (98-107) mmol/L Carbon Dioxide 21 L (22-30) mmol/L BUN 21 H (7-17) mg/dL AST 39 H (14-36) U/L Alkaline Phosphatase 131 H (38-126) U/L Total Protein 9.0 H (6.3-8.2) g/dL Triglycerides (0.00-149.00) mg/dL Cholesterol (0.00-200.00) mg/dL VLDL Cholesterol, Calc (5.00-40.00) mg/dL HDL Cholesterol (40.00-60.00) mg/dL 12/31/23 Range/Units 20:42 Lymphocytes # (1.0-4.8) k/uL PT (10.0-12.5) sec Chloride (98-107) mmol/L Carbon Dioxide (22-30) mmol/L BUN (7-17) mg/dL AST (14-36) U/L Alkaline Phosphatase (38-126) U/L Total Protein (6.3-8.2) g/dL Triglycerides 372.00 H (0.00-149.00) mg/dL Cholesterol 215.00 H (0.00-200.00) mg/dL VLDL Cholesterol, Calc 74.40 H (5.00-40.00) mg/dL HDL Cholesterol 37.50 L (40.00-60.00) mg/dL Assessment and Plan Assessment: 1. Left-sided facial droop with slurred speech concerns for CVA 2. Abnormal chest x-ray we'll repeat 2 view and consult pulmonary services 3. History of ongoing nicotine dependence. Patient educated greater than 3 minutes on the importance of complete smoking cessation 4. history of COPD 5. History of cholecystectomy 6. Incidental finding of mild dilated ascending aorta and mild nonspecific mediastinal adenopathy recommend six-week follow-up CT of chest with IV contrast At this time patient will be admitted Neurology and pulmonary service is consulted MRI of the head ordered 2-D echo ordered Two-view chest x-ray ordered PT OT and speech service is consulted Time with Patient: Greater than 30 (Greater than 60% of the total time spent in counseling and coordination of care)
--- NOTE | 2024-01-01 13:30 | P.CNPUL ---
History of Present Illness Consult date: 01/01/24 Reason for consult: COPD History of present illness: . He seen 68-year-old female patient, a chronic smoker, came into the emergency department because of left facial numbness and the facial droop and inability to move the left side of her mouth. She also had some slurred speech. The patient was evaluated in the emergency department. Her symptoms started apparently around noon yesterday and the patient presented to the emergency department quite late and she was not found to be a candidate for thrombolytics. CT of the brain was completed and showed no significant abnormalities. CAT scan of the brain was also done and showed no acute process. Clinically stable. Hemodynamically stable. No shortness of breath. Pulse ox 98% room air oxygen. Chest x-ray consistent with COPD. There is some increased interstitial markings bilaterally. She is a chronic smoker. No significant exertional dyspnea. No cough sputum production chest tightness or wheezing. Does not utilize any form of respiratory medications on outpatient basis. Blood work shows no leukocytosis, normal coagulation profile, normal electrolytes, normal liver fu nction test, LDL cholesterol was at 103. Pulse ox is 98% room air oxygen. Review of Systems Constitutional: Denies chills, Denies fever Eyes: denies as per HPI, denies blurred vision, denies bulging eye, denies decreased vision, denies diplopia, denies discharge, denies dry eye, denies irritation, denies itching, denies pain, denies photophobia, denies loss of peripheral vision, denies loss of vision, denies tunnel vision/blind spots Ears: deny: decreased hearing, ear discharge, earache, tinnitus Ears, nose, mouth and throat: Reports as per HPI Breasts: absent: as per HPI, change in shape, gynecomastia, masses, nipple discharge, pain, skin changes, swelling Cardiovascular: Denies chest pain, Denies shortness of breath Respiratory: Reports as per HPI Gastrointestinal: Denies abdominal pain, Denies diarrhea, Denies nausea, Denies vomiting Menstruation: Reports as per HPI Musculoskeletal: Reports as per HPI Musculoskeletal: absent: ankle pain, ankle stiffness, ankle swelling, as per HPI, elbow pain, elbow stiffness, elbow swelling, foot pain, foot stiffness, foot swelling, hand pain, hand stiffness, hand swelling, hip pain, hip stiffness, hip swelling, knee pain, knee stiffness, knee swelling, shoulder pain, shoulder stiffness, shoulder swelling, wrist pain, wrist stiffness, wrist swelling Integumentary: Reports as per HPI Neurological: Reports weakness Psychiatric: Reports as per HPI Endocrine: Reports as per HPI Hematologic/Lymphatic: Reports as per HPI Allergic/Immunologic: Reports as per HPI Past Medical History Past Medical History: COPD, Thyroid Disorder Additional Past Medical History / Comment(s): past lt wrist fx-casted. 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 Colonoscopy Past Anesthesia/Blood Transfusion Reactions: No Reported Reaction Past Psychological History: No Psychological Hx Reported Smoking Status: Current every day smoker Past Alcohol Use History: None Reported Additional Past Alcohol Use History / Comment(s): started smoking at age 20 smokes 1/2 ppd Past Drug Use History: None Reported - Past Family History Mother Additional Family Medical History / Comment(s): "leaky heart valve' Father Family Medical History: Myocardial Infarction ([place]) Additional Family Medical History / Comment(s): in his sleep Medications and Allergies Home Medications Medication Instructions Recorded Confirmed Type HYDROcodone/APAP 7.5-325MG [[place] 1 tab PO Q6HR PRN 01/01/24 01/01/24 History 7.5-325] Levothyroxine Sodium [Synthroid] 137 mcg PO DAILY 01/01/24 01/01/24 History Pantoprazole Sodium [Protonix] 40 mg PO DAILY 01/01/24 01/01/24 History Allergies Allergy/AdvReac Type Severity Reaction Status Date / Time No Known Allergies Allergy Verified 01/01/24 08:18 Physical Exam Vitals: Vital Signs Temp Pulse Pulse Resp BP BP Pulse Ox 01/01/24 12:00 70 16 172/85 01/01/24 09:12 62 16 174/69 01/01/24 06:24 53 L 20 166/74 98 01/01/24 03:05 60 18 164/74 98 12/31/23 22:29 58 L 18 176/81 96 12/31/23 20:30 98.4 F 86 18 172/78 96 Intake and Output 12/31/23 01/01/24 01/01/24 22:59 06:59 14:59 Other: Weight 72.575 kg 72.575 kg General appearance comfortable on room air oxygen. Head exam was generally normal. There was no scleral icterus or corneal arcus. Mucous membranes were moist. Limited left facial weakness with noted Neck was supple and without jugular venous distension, thyromegaly, or carotid bruits. Carotids were easily palpable bilaterally. There was no adenopathy. Cardiac exam revealed the PMI to be normally situated and sized. The rhythm was regular and no extrasystoles were noted during several minutes of auscultation. The first and second heart sounds were normal and physiologic splitting of the second heart sound was noted. There were no murmurs, rubs, clicks, or gallops. Lungs were clear to auscultation and percussion, and with normal diaphragmatic excursion. No wheezes or rales were noted. Abdominal exam revealed normal bowel sounds. The abdomen was soft, non-tender, and without masses, organomegaly, or appreciable enlargement of the abdominal aorta. Examination of the extremities revealed easily palpable radial, femoral and pedal pulses. There was no cyanosis, clubbing or edema. Neurologically, the patient is awake and alert x 3. Left facial weakness was noted. Left facial droop. Motor function left upper extremity is 4/5. Motor function on the right was within normal limits. Normal swallow. Pupils are equal reactive to light. Results - Laboratory Findings CBC and BMP: 12/31/23 20:42 12/31/23 20:42 PT/INR, D-dimer PT 9.8 sec (10.0-12.5) L 12/31/23 20:42 INR 0.9 (<1.2) 12/31/23 20:42 Abnormal lab findings: Abnormal Labs 12/31/23 12/31/23 12/31/23 20:42 20:42 20:42 Lymphocytes # 0.7 L PT 9.8 L Chloride 110 H Carbon Dioxide 21 L BUN 21 H AST 39 H Alkaline Phosphatase 131 H Total Protein 9.0 H Triglycerides Cholesterol VLDL Cholesterol, Calc HDL Cholesterol 12/31/23 20:42 Lymphocytes # PT Chloride Carbon Dioxide BUN AST Alkaline Phosphatase Total Protein Triglycerides 372.00 H Cholesterol 215.00 H VLDL Cholesterol, Calc 74.40 H HDL Cholesterol 37.50 L - Diagnostic Findings Chest x-ray: image reviewed Assessment and Plan Plan: Acute CVA with left-sided weakness, CT scan of the brain and CT angiogram was normal. The patient has some residual left-sided weakness. Awaiting neurology consultation. Hemodynamically stable. Cardiac rhythm is sinus. No altered mentation. No difficulties in swallowing. COPD, currently inactive and stable, attributed to chronic smoking. Currently a symptomatic. Hypothyroidism Smoker Plan Neurology consultation Continue aspirin Continue statins, the patient is currently on Lipitor echocardiogram Follow-up patient workup regarding COPD and the patient will obviously need a baseline pulmonary function test and she will also need to stop smoking. Smoking cessation counseling was done. No active pulmonary issues for now. Will continue to follow.
--- NOTE | 2024-01-01 15:48 | P.CNNES ---
History of Present Illness Consult date: 01/01/24 Requesting physician: Torin Mace Reason for Consult: CVA History of Present Illness: Patient is a 68-year-old left-handed female with history of tobacco use, came to the hospital yesterday at 8:28 PM for strokelike symptoms. Patient states that yesterday at 12:30 PM, she was sitting at home, when she noticed numbness and weakness of left side of the body, she was talking funny and there was left facial droop. Patient was home alone, does not have any cell phone or landline. When her grandson came over at around 8 PM, patient reported about above symptoms therefore he brought her to the hospital. Vital signs on arrival blood pressure 172/78, then was 176/81, pulse rate 86 temperature 98.4. Blood test shows normal CBC PT PTT, normal electrolytes, renal functions, AST mildly elevated 39 normal ALT. EKG showed sinus rhythm. Chest x-ray showed possible interstitial phase of pulmonary edema. There is also partial consolidative opacity in the right infrahilar position suggesting the possibility of partial right lower lobe pneumonia. CT head showed no acute process. I personally reviewed CT head, agree with the findings. There is evidence of old lacunar in the left centrum semiovale. Some small vessel disease. When patient arrived to the ER, her documented NIH stroke scale was 5. Patient was considered not a candidate for TNK, because she came outside the window for tPA. Patient denies any history of hypertension or diabetes. She has only 1 kidney. No previous history of stroke/TIA or any coronary artery disease. Patient's home medications does not list about taking antiplatelets but patient states that she has been taking low-dose Lev aspirin for arthritis in the last 2 months. Patient has smoked half pack per day for last 30 years. She drinks alcohol very rarely. Review of Systems Completely unremarkable except the pertinent positive and negative mentioned per HPI. Past Medical History Past Medical History: COPD, CVA/TIA Additional Past Medical History / Comment(s): past lt wrist fx-casted. 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 Colonoscopy Past Anesthesia/Blood Transfusion Reactions: No Reported Reaction Past Psychological History: No Psychological Hx Reported Smoking Status: Current every day smoker Past Alcohol Use History: None Reported Additional Past Alcohol Use History / Comment(s): started smoking at age 20 smokes 1/2 ppd Past Drug Use History: None Reported - Past Family History Mother Additional Family Medical History / Comment(s): "leaky heart valve' Father Family Medical History: Myocardial Infarction ([place]) Additional Family Medical History / Comment(s): in his sleep Medications and Allergies Home Medications Medication Instructions Recorded Confirmed Type HYDROcodone/APAP 7.5-325MG [[place] 1 tab PO Q6HR PRN 01/01/24 01/01/24 History 7.5-325] Levothyroxine Sodium [Synthroid] 137 mcg PO DAILY 01/01/24 01/01/24 History Pantoprazole Sodium [Protonix] 40 mg PO DAILY 01/01/24 01/01/24 History Allergies Allergy/AdvReac Type Severity Reaction Status Date / Time No Known Allergies Allergy Verified 01/01/24 08:18 Physical Examination - Vital Signs Vital Signs: Vital Signs Temp Pulse Pulse Resp BP BP Pulse Ox 01/01/24 12:00 70 16 172/85 01/01/24 09:12 62 16 174/69 01/01/24 06:24 53 L 20 166/74 98 01/01/24 03:05 60 18 164/74 98 12/31/23 22:29 58 L 18 176/81 96 12/31/23 20:30 98.4 F 86 18 172/78 96 Intake and Output 12/31/23 01/01/24 01/01/24 22:59 06:59 14:59 Other: Weight 72.575 kg 72.575 kg Patient is an elderly female, very pleasant, in no acute distress. Patient is alert awake oriented to time place and person. Patient knows it is January 01, 2024 and that she is in [facility] in [facility]. Speech is mild to moderately dysarthric and language functions are normal. Patient can name and repeat very well. Attention, concentration and fund of knowledge is adequate. On cranial nerve examination, pupils are equal, round and reacting to light, visual garcia are full on confrontation, with no neglect on double simultaneous stimulation. Extraocular muscles are intact with no nystagmus. Patient has left facial weakness, central type. Her tongue protrudes to the left. Palatal elevation and sensation normal, hearing is moderately decreased for finger rubbing and routine conversation, and shoulder shrug normal, facial sensation normal. On muscle strength testing, there is left pronator drift and the left arm droops down about 45 degree. The strength is normal in arms and legs distally and proximally. Deep tendon reflexes are symmetric 2+ all over and plantars downgoing. Sensory to touch is decreased in the left arm as compared to the right. The sensations are equal on the face and the lower limbs. Cerebellar function showed no ataxia for [id number] testing. No dysdiadochokinesia. No ataxia for [id number] testing on either side. Tone and bulk of muscles normal. Gait deferred.. On general examination, there is no carotid bruit or murmur, S1-S2 audible. Chest is clear on consultation. Abdomen is soft nontender. No organomegaly, bowel sounds present. Peripheral pulses are present. No peripheral edema. Results - Laboratory Findings CBC and BMP: 12/31/23 20:42 12/31/23 20:42 Abnormal Lab Findings: Abnormal Labs 12/31/23 12/31/23 12/31/23 20:42 20:42 20:42 Lymphocytes # 0.7 L PT 9.8 L Chloride 110 H Carbon Dioxide 21 L BUN 21 H AST 39 H Alkaline Phosphatase 131 H Total Protein 9.0 H Triglycerides Cholesterol VLDL Cholesterol, Calc HDL Cholesterol 12/31/23 20:42 Lymphocytes # PT Chloride Carbon Dioxide BUN AST Alkaline Phosphatase Total Protein Triglycerides 372.00 H Cholesterol 215.00 H VLDL Cholesterol, Calc 74.40 H HDL Cholesterol 37.50 L Assessment and Plan Assessment: * Acute ischemic stroke, manifesting with dysarthria, left facial droop, left pronator drift, and left arm numbness. Current NIH stroke scale is 4. Patient not a candidate for TNK, as she came outside the window for TNK. * Hypertension * Hyperlipidemia * Hypothyroidism * COPD * Abnormal chest x-ray, pulmonary edema versus rule out pneumonia * Tobacco use Plan: MRI of the brain without contrast, evaluate for acute CVA 2-D echo with bubble study to rule out PFO CTA head and neck showed: No significant CT abnormalities seen. Incidental findings include coronary calcifications, mildly dilated ascending aorta, and mild nonspecific mediastinal adenopathy, which can be further characterized with 6-week follow-up CT chest with IV contrast. We will defer this abnormality to IM. Fasting a.m. lipid panel cholesterol 215, LDL 103, HDL 37 triglycerides 372. Recommend Lipitor 40 mg daily. Target LDL <70. Hemoglobin A1c Permissive hypertension for next 24-48 hours Patient states she has been taking aspirin 81 mg daily for the last couple months. We will start Plavix 75 mg daily. Neuro checks every 2 hours. Telemetry monitoring rule out any arrhythmia PT, OT, speech therapy Recommend complete tobacco cessation. DVT prophylaxis: Heparin 5000 units subcu every [address] Robles will cover neurology service over the weekend. Thank you for the consult.
[2024-01-01] MEDS: CLOPIDOGREL 75 MG TAB PO SCH (16:19)
[2024-01-01] MEDS: HYDROcodone/APAP 7.5-325MG 1 EACH TAB PO PRN (19:12)
--- NOTE | 2024-01-01 19:54 | CA ---
Transthoracic Echo Report Name: Jasmyne Solorzano Age: 68 Gender: F : 1955 Exam Date: 01/01/2024 14:20 Exam Location: [place] [facility] Ht (in): 62 Wt (lb): 160 Ordering Physician: Torin Mace DO Attending/Referring Phys: [id number], Rodri Outreach Rep Catherine Yeager RDCS Procedure CPT: Indications: Thrombus Cardiac Hx: Technical Quality: Good Contrast 1: Agitated Saline Total Dose (mL): 10 Contrast 2: Total Dose (mL): MEASUREMENTS (Male / Female) Normal Values 2D ECHO LV Diastolic Volume MOD BP 97.3 cm??? 67 - 155 / 56 - 104 cm??? LV Systolic Volume MOD BP 35.9 cm??? 22 - 58 / 19 - 49 cm??? LV Ejection Fraction MOD BP 63.1 % >= 55 % LV Cardiac Index MOD BP 1939.1 cm???/min???m??? LV Diastolic Volume MOD 4C 109.8 cm??? LV Systolic Volume MOD 4C 42.0 cm??? LV Ejection Fraction MOD 4C 61.7 % LV Cardiac Index MOD 4C 2137.8 cm???/min???m??? LV Diastolic Length 4C 8.1 cm LV Systolic Length 4C 6.6 cm LV Diastolic Volume MOD 2C 83.8 cm??? LV Systolic Volume MOD 2C 30.8 cm??? LV Ejection Fraction MOD 2C 63.3 % LV Cardiac Index MOD 2C 1672.4 cm???/min???m??? LV Diastolic Length 2C 7.9 cm LV Systolic Length 2C 6.5 cm LA Volume 48.4 cm??? 18 - 58 / 22 - 52 cm??? LA Volume Index 26.8 cm???/m??? 16 - 28 cm???/m??? DOPPLER AV Peak Velocity 165.2 cm/s AV Peak Gradient 10.9 mmHg AV Mean Velocity 105.7 cm/s AV Mean Gradient 5.0 mmHg AV Velocity Time Integral 33.4 cm LVOT Peak Velocity 107.4 cm/s LVOT Peak Gradient 4.6 mmHg LVOT Velocity Time Integral 21.0 cm MV Area PHT 3.2 cm??? Mitral E Point Velocity 55.5 cm/s Mitral A Point Velocity 62.0 cm/s Mitral E to A Ratio 0.9 MV Deceleration Time 236.0 ms PV Peak Velocity 83.2 cm/s PV Peak Gradient 2.8 mmHg FINDINGS Left Ventricle Left ventricular ejection fraction is estimated at 60 %. Mild concentric left ventricular hypertrophy. Left ventricular cavity size normal. No obvious regional wall motion abnormalities. Negative bubble study. Right Ventricle Normal right ventricular size and function. Unable to estimate the right ventricular systolic pressure. Right Atrium Normal right atrial size. Left Atrium Normal left atrial size. Mitral Valve Structurally normal mitral valve. No evidence for mitral valve prolapse. No mitral stenosis. Trace mitral regurgitation. Aortic Valve Trileaflet aortic valve. No aortic stenosis. Trace aortic regurgitation. Tricuspid Valve Structurally normal tricuspid valve. No tricuspid stenosis. Trace tricuspid regurgitation. Pulmonic Valve Structurally normal pulmonic valve. No pulmonic regurgitation. Pericardium No pericardial effusion. Aorta Normal size aortic root and proximal ascending aorta. CONCLUSIONS Left ventricular ejection fraction is estimated at 60 %. No obvious regional wall motion abnormalities. No obvious valvular dysfunction No pericardial effusion Previewed by: Dr Jero Patton (Electronically Signed) Final Date: 01 January 2024 19:54
--- NOTE | 2024-01-01 20:27 | XR ---
EXAMINATION TYPE: XR chest 2V DATE OF EXAM: 01/01/2024 COMPARISON: 12/31/2023 TECHNIQUE: PA and lateral views submitted. HISTORY: Weakness FINDINGS: The lungs are clear and there is no pneumothorax, pleural effusion, or focal pneumonia. Heart size normal and no overt failure. Osseous structures demonstrate hypertrophic and degenerative changes of the spine. Underlying emphysema with a coarsened interstitium stable from prior exam may represent ch ronic interstitial lung disease. Atherosclerotic change aorta. Diffuse osteopenia and arthropathy of the shoulders. IMPRESSION: 1. No acute process. 2. Stable coarsened interstitium which could been the basis of chronic interstitial lung disease or b ronchitis.
[2024-01-01] MEDS: HEPARIN SODIUM,PORCINE 5,000 UNIT/ML 1 ML VIAL SQ SCH (20:51)
[2024-01-01] MEDS: ATORVASTATIN 80 MG TAB PO SCH (20:51)
--- NOTE | 2024-01-01 22:02 | MR ---
EXAMINATION TYPE: MR brain wo con DATE OF EXAM: 01/01/2024 5:55 PM CLINICAL INDICATION:Female, 68 years old with history of CVA; PHH, CVA, left-sided body weakness COMPARISON: CT head 12/31/2023. TECHNIQUE: Multi planar, multi sequence MR imaging of the brain was performed without contrast FINDINGS: There is moderate generalized atrophy with compensatory enlargement of the ventricles and CSF spaces. The major vascular flow voids at the base of the brain are preserved. Basilar cisterns are patent. N o evidence of acute or past intracranial hemorrhage, midline shift, midline shift, mass effect, or he rniation. There is a 15 x 9 mm ovoid-shaped focus of diffusion restriction abutting the right lateral ventricle in the posterior right frontal lobe, and its other end extending to near the subcortical region of t he insula. This finding is associated with a background of moderate patchy and some confluence white matter sign al hyperintensities throughout both cerebral hemispheres, and several small foci in the brainstem, co nsistent with chronic changes. Pattern of lesions is nonspecific, there is no clear pattern of distri bution or clear cut "Villalobos's finger" type appearance. There is no evidence of intracranial mass. Soft tissues show no concerning signal abnormalities. There has likely been prior lens surgery bilate rally. No calvarial or extracranial soft tissue signal abnormality. No abnormal signal in the mastoid air cells. IMPRESSION: 1. Moderate generalized brain atrophy. 2. Moderate burden of T2/FLAIR white matter signal hyperintensities bilaterally, nonspecific but like ly considerations include chronic microvascular ischemic white matter changes. Differential does incl ude demyelination/MS, vasculitis, sequela of migraines. 3. A 15 x 9 mm ovoid focus of diffusion restriction along the right lateral ventricle in the posterio r right frontal lobe, compatible with acute/subacute small vessel ischemic event, in keeping with #2. 4. No evidence of mass effect, midline shift, or herniation.
[2024-01-02] MEDS: NICOTINE 14MG/24HR PATCH TRANSDERM SCH (08:26)
[2024-01-02] MEDS: LEVOTHYROXINE 137 MCG TAB PO SCH (08:26)
[2024-01-02] MEDS: PANTOPRAZOLE 40 MG TABLET PO SCH (08:26)
--- NOTE | 2024-01-02 10:00 | P.PN ---
Subjective Progress Note Date: 01/02/24 Jasmyne Solorzano is a 68-year-old female patient who presented to ER with concerns ofleft-sided facial droop in slurred speech that started around noon yesterday. Patient has a past medical history ofCOPD, cholecystectomy and current every day smoker. head CT completed showing no definitive acute process.CTA showing no significant CT abnormality. Did show mildly dilated ascending aorta and mild nonspecific mediastinal edema the which could be followed up 6 week follow-up with CT of chest.labwork revealing white blood cell 5.8 hemoglobin 13.9 creatinine 0.64 bun 21. at this time patient will be admitted. Neurology and pulmonary service is consulted. MRI and 2-D echo has been ordered. PT OT and speech service is consulted On 01/02/2024 patient's alert and oriented 3. Patient underwent MRI. Patient still having some left facial drooping and slurred speech. Speech service is consulted to assess swallow. Patient maintained on Plavix and aspirin. Current vital signs temp 98.7, heart rate 62, respiratory rate 20, blood pressure 155/95 with pulse ox 98% on room air Objective - Vital Signs Vital signs: Vital Signs Temp 98.7 F 01/02/24 08:13 Pulse 58 L 01/02/24 08:13 Resp 20 01/02/24 08:13 BP 174/87 01/02/24 08:13 Pulse Ox 97 01/02/24 08:13 FiO2 Intake & Output 01/01/24 01/02/24 01/02/24 18:59 06:59 18:59 Weight 72.575 kg Other: Voiding Method Bedside Commode - Exam Head normocephalic Neck supple Lungs clear to auscultation bilaterally no wheezing or crackles Heart regular rate and rhythm S1-S2, no rub or gallop Abdomen is soft nontender nondistended positive bowel sounds no hepatosplenomegaly Extremities no edema Neuro alert and orientated to 3. Left facial droop noted with slurred speech - Labs CBC & Chem 7: 12/31/23 20:42 12/31/23 20:42 Assessment and Plan Assessment: 1. Left-sided facial droop with slurred speech concerns for CVA 2. Abnormal chest x-ray we'll repeat 2 view.. Patient was evaluated by pulmonary services no further workup 3. History of ongoing nicotine dependence. Patient educated greater than 3 minutes on the importance of complete smoking cessation 4. history of COPD 5. History of cholecystectomy 6. Incidental finding of mild dilated ascending aorta and mild nonspecific mediastinal adenopathy recommend six-week follow-up CT of chest with IV contrast At this time patient will be admitted Neurology and pulmonary service is consulted MRI of the head ordered 2-D echo ordered Two-view chest x-ray ordered PT OT and speech service is consulted
--- NOTE | 2024-01-02 12:52 | P.PN ---
Subjective Progress Note Date: 01/02/24 The patient is a 68-year-old female who was seen in neurologic follow-up on January 02, 2024, in collaboration with Loli Little, via teleneurology. Patient was seen in neurologic consultation yesterday for concerns regarding stroke. MRI of the brain was performed. This MRI is positive for area of acute ischemia along the right lateral ventricle. There is no reported edema. Please see Dr. Maurice's consultation for further details This morning, the patient complains of a left lateral headache. She reports receiving [place], without benefit. The patient does however take [place] for her chronic back pain and does receive benefit from it. She continues to have left- sided weakness. She reports difficulty with speech. She reportedly passed her bedside swallow evaluation. She was able to swallow her pills, liquids and solids, per nursing. Objective - Vital Signs Vital signs: Vital Signs Temp 98.7 F 01/02/24 08:13 Pulse 58 L 01/02/24 08:13 Resp 20 01/02/24 08:13 BP 174/87 01/02/24 08:13 Pulse Ox 97 01/02/24 08:13 FiO2 Intake & Output 01/01/24 01/02/24 01/02/24 18:59 06:59 18:59 Weight 72.575 kg Other: Voiding Method Bedside Commode - Exam General: The patient is seated in the bed. She is well-nourished, well- developed and in no acute distress. HEENT: Head is atraumatic, normocephalic. Fundus not visualized. There is no scleral icterus. Mucous membranes are moist. Neck: Supple without carotid bruits Heart: Regular rate and rhythm Extremities: Without edema Neurological examination Mental status: The patient is awake, alert and oriented x 3. Her speech is dysarthric. There is no aphasia. The patient is able to repeat phrases. Cranial nerves: Pupils are equal at 3 mm and reactive. Visual garcia are full to confrontation. Extraocular movements are intact. There is no nystagmus. Facial sensation is intact. There is a left facial droop. Hearing is grossly intact. Uvula and palate are midline. Shoulder shrug is symmetric. Tongue protrudes midline. Motor: Strength (right/left)-triceps 5/4. Biceps 5/4. Log Stacker Operator strength 5/4. Coordination: There is a left pronator drift. There is left-sided slowing of rapid alternating movements. Sensation: The patient reports increased light touch sensation in the left arm and leg. There is no extinction with double simultaneous stimulation Deep tendon reflexes: 3+/4+ in the left upper and lower extremities. 2+/4+ the right upper and lower extremities. - Labs CBC & Chem 7: 12/31/23 20:42 12/31/23 20:42 Assessment and Plan Assessment: Acute ischemic stroke, manifesting with dysarthria, left facial droop, left pronator drift, and left arm numbness. Current NIH stroke scale is 4. Patient not a candidate for TNK, as she came outside the window for TNK. MRI is positive for right frontal, acute ischemia * Hypertension * Hyperlipidemia * Hypothyroidism * COPD * Abnormal chest x-ray, pulmonary edema versus rule out pneumonia * Tobacco use Plan: 2-D echo with bubble study to rule out PFO CTA head and neck showed: No significant CT abnormalities seen. Incidental findings include coronary calcifications, mildly dilated ascending aorta, and mild nonspecific mediastinal adenopathy, which can be further characterized with 6-week follow-up CT chest with IV contrast. We will defer this abnormality to IM. Fasting a.m. lipid panel cholesterol 215, LDL 103, HDL 37 triglycerides 372. Recommend Lipitor 40 mg daily. Target LDL <70. Hemoglobin A1c Permissive hypertension for next 24-48 hours Patient states she has been taking aspirin 81 mg daily for the last couple months. We will start Plavix 75 mg daily. Neuro checks every 2 hours. Telemetry monitoring rule out any arrhythmia PT, OT, speech therapy Recommend complete tobacco cessation. DVT prophylaxis: Heparin 5000 units subcu every 12 hours Time with Patient: Greater than 30 (40 minutes were spent caring for this patient today including, obtaining history, examining the patient, reviewing imaging, chart documentation, labs, placing orders and creating this note)
[2024-01-02 13:21] LABS: Basophils % (A) 0 %; Eosinophils # (A) 0.2 k/uL (0-0.7); Eosinophils % (A) 2 %; HGB 12.5 gm/dL (11.4-16.0); Lymphocytes # (A) 0.6 k/uL (1.0-4.8); Lymphocytes % (A) 10 %; MCH 31.5 pg (25.0-35.0); MCHC 32.8 g/dL (31.0-37.0); Mean Platelet Volume 7.8; Monocytes # (A) 0.6 k/uL (0-1.0); Monocytes % (A) 10 %; Neutrophils # (A) 4.6 k/uL (1.3-7.7); Neutrophils % (A) 75 %; Platelet Count 204 k/uL (150-450); RBC 3.96 m/uL (3.80-5.40); WBC 6.2 k/uL (3.8-10.6)
[2024-01-02 13:34] LABS: ALT 16 U/L (4-34); AST 32 U/L (14-36); African American GFR (CKD) >90 (>60 ml/min/1.73 sqM); Albumin 3.6 g/dL (3.5-5.0); Alkaline Phosphatase 115 U/L (38-126); Anion Gap 1 mmol/L; Blood Urea Nitrogen 18 mg/dL (7-17); Calcium 9.1 mg/dL (8.4-10.2); Carbon Dioxide 29 mmol/L (22-30); Chloride 109 mmol/L (98-107); Glucose 83 mg/dL (74-99); Non-African American GFR(CKD) 85 (>60 ml/min/1.73 sqM); Potassium 4.6 mmol/L (3.5-5.1); Sodium 139 mmol/L (137-145); Total Bilirubin 0.4 mg/dL (0.2-1.3); Total Protein 7.7 g/dL (6.3-8.2)
--- NOTE | 2024-01-02 19:06 | P.PN ---
Subjective Progress Note Date: 01/02/24 . He seen 68-year-old female patient, a chronic smoker, came into the emergency department because of left facial numbness and the facial droop and inability to move the left side of her mouth. She also had some slurred speech. The patient was evaluated in the emergency department. Her symptoms started apparently around noon yesterday and the patient presented to the emergency department quite late and she was not found to be a candidate for thrombolytics. CT of the brain was completed and showed no significant abnormalities. CAT scan of the brain was also done and showed no acute process. Clinically stable. Hemodynamically stable. No shortness of breath. Pulse ox 98% room air oxygen. Chest x-ray consistent with COPD. There is some increased interstitial markings bilaterally. She is a chronic smoker. No significant exertional dyspnea. No cough sputum production chest tightness or wheezing. Does not utilize any form of respiratory medications on outpatient basis. Blood work shows no leukocytosis, normal coagulation profile, normal electrolytes, normal liver function test, LDL cholesterol was at 103. Pulse ox is 98% room air oxygen. On today's evaluation of 01/02/2024, the patient is being seen for a follow-up. The patient has no significant complaints. Her COPD is currently inactive and stable. She continues to have some residual left facial weakness. No signif icant motor weakness in left upper and left lower extremity. MRI of the brain was done on 01/01/2024 and it showed moderate generalized brain atrophy and there is also moderate burden of T2 white matter signal hyperintensities bilaterally and evidence of chronic microvascular ischemic changes. There is also a 15 x 9 mm ovoid focus of diffusion restriction along the right lateral ventricle and the posterior right frontal lobe compatible with an acute/subacute small vessel ischemic event. No evidence of any mass effect. No midline shift or herniation. The patient remains on a combination of aspirin and Plavix. The patient is currently on 2 L of oxygen by nasal cannula with a pulse ox of 96 to 99%. Objective - Vital Signs Vital signs: Vital Signs Temp 98.7 F 01/02/24 08:13 Pulse 58 L 01/02/24 08:13 Resp 20 01/02/24 08:13 BP 174/87 01/02/24 08:13 Pulse Ox 97 01/02/24 08:13 FiO2 Intake & Output 01/01/24 01/02/24 01/02/24 18:59 06:59 18:59 Weight 72.575 kg Other: Voiding Method Bedside Commode - Exam General appearance comfortable on room air oxygen. Head exam was generally normal. There was no scleral icterus or corneal arcus. Mucous membranes were moist. Limited left facial weakness with noted Neck was supple and without jugular venous distension, thyromegaly, or carotid bruits. Carotids were easily palpable bilaterally. There was no adenopathy. Cardiac exam revealed the PMI to be normally situated and sized. The rhythm was regular and no extrasystoles were noted during several minutes of auscultation. The first and second heart sounds were normal and physiologic splitting of the second heart sound was noted. There were no murmurs, rubs, clicks, or gallops. Lungs were clear to auscultation and percussion, and with normal diaphragmatic excursion. No wheezes or rales were noted. Abdominal exam revealed normal bowel sounds. The abdomen was soft, non-tender, and without masses, organomegaly, or appreciable enlargement of the abdominal aorta. Examination of the extremities revealed easily palpable radial, femoral and pedal pulses. There was no cyanosis, clubbing or edema. Neurologically, the patient is awake and alert x 3. Left facial weakness was noted. Left facial droop. Motor function is normal in the lower extremities. Adequate motor function in the upper extremities.. Left facial droop still pre sent.. Normal swallow. Pupils are equal reactive to light. - Labs CBC & Chem 7: 01/02/24 12:47 01/02/24 12:47 Assessment and Plan Plan: Acute CVA with left-sided weakness, CT scan of the brain and CT angiogram was normal. The patient has some residual left-sided weakness. Awaiting neurology consultation. Hemodynamically stable. Cardiac rhythm is sinus. No altered mentation. No difficulties in swallowing. MRI of the brain confirmed presence of an ischemic stroke and the patient remains on a combination of aspirin and Plavix. COPD, currently inactive and stable, attributed to chronic smoking. Currently asymptomatic. Hypothyroidism Smoker Plan Neurology consultation Continue aspirin Continue statins, the patient is currently on Lipitor echocardiogram is within normal limits with a normal ejection fraction. Follow-up patient workup regarding COPD and the patient will obviously need a baseline pulmonary function test and she will also need to stop smoking. Smoking cessation counseling was done. No active pulmonary issues for now. Will continue to follow.
--- NOTE | 2024-01-03 11:39 | P.PN ---
Subjective Progress Note Date: 01/03/24 Jasmyne Solorzano is a 68-year-old female patient who presented to ER with concerns ofleft-sided facial droop in slurred speech that started around noon yesterday. Patient has a past medical history ofCOPD, cholecystectomy and current every day smoker. head CT completed showing no definitive acute process.CTA showing no significant CT abnormality. Did show mildly dilated ascending aorta and mild nonspecific mediastinal edema the which could be followed up 6 week follow-up with CT of chest.labwork revealing white blood cell 5.8 hemoglobin 13.9 creatinine 0.64 bun 21. at this time patient will be admitted. Neurology and pulmonary service is consulted. MRI and 2-D echo has been ordered. PT OT and speech service is consulted On 01/02/2024 patient's alert and oriented 3. Patient underwent MRI. Patient still having some left facial drooping and slurred speech. Speech service is consulted to assess swallow. Patient maintained on Plavix and aspirin. Current vital signs temp 98.7, heart rate 62, respiratory rate 20, blood pressure 155/95 with pulse ox 98% on room air On 01/03/2024 patient was seen and examined on the medical floor she is alert and oriented x 3 in no apparent distress there is no fever or chills no headache or dizziness no chest pain or shortness of breath no cough, no nausea or vomiting no abdominal pain no diarrhea no urinary symptoms. Vital exam reveals a temperature of 98.4 pulse 67 respirations 16 blood pressure 137/76 pulse ox 97% on 2 L nasal cannula, patient still has significant left-sided facial drooping, with his speech difficulty. Objective - Vital Signs Vital signs: Vital Signs Temp 98.3 F 01/03/24 04:00 Pulse 76 01/03/24 04:00 Resp 16 01/03/24 04:00 BP 171/80 01/03/24 04:00 Pulse Ox 98 01/03/24 04:00 FiO2 Intake & Output 01/02/24 01/03/24 01/03/24 18:59 06:59 18:59 Other: Voiding Method Bedside Commode Toilet # Voids 3 1 - Exam Head normocephalic Neck supple Lungs clear to auscultation bilaterally no wheezing or crackles Heart regular rate and rhythm S1-S2, no rub or gallop Abdomen is soft nontender nondistended positive bowel sounds no hepatosplenomegaly Extremities no edema Neuro alert and orientated to 3. Left facial droop noted with slurred speech - Labs CBC & Chem 7: 01/02/24 12:47 01/02/24 12:47 Labs: Abnormal Lab Results - Last 24 Hours (Table) 01/02/24 01/02/24 Range/Units 12:47 12:47 Lymphocytes # 0.6 L (1.0-4.8) k/uL Chloride 109 H (98-107) mmol/L BUN 18 H (7-17) mg/dL Assessment and Plan Assessment: 1. Left-sided facial droop with slurred speech concerns for CVA 2. Abnormal chest x-ray we'll repeat 2 view.. Patient was evaluated by pulmonary services no further workup 3. History of ongoing nicotine dependence. Patient educated greater than 3 minutes on the importance of complete smoking cessation 4. history of COPD 5. History of cholecystectomy 6. Incidental finding of mild dilated ascending aorta and mild nonspecific mediastinal adenopathy recommend six-week follow-up CT of chest with IV contrast At this time patient will be admitted Neurology and pulmonary service is consulted MRI of the head ordered 2-D echo ordered Two-view chest x-ray ordered PT OT and speech service is consulted
--- NOTE | 2024-01-03 12:29 | P.PN ---
Subjective Progress Note Date: 01/03/24 . He seen 68-year-old female patient, a chronic smoker, came into the emergency department because of left facial numbness and the facial droop and inability to move the left side of her mouth. She also had some slurred speech. The patient was evaluated in the emergency department. Her symptoms started apparently around noon yesterday and the patient presented to the emergency department quite late and she was not found to be a candidate for thrombolytics. CT of the brain was completed and showed no significant abnormalities. CAT scan of the brain was also done and showed no acute process. Clinically stable. Hemodynamically stable. No shortness of breath. Pulse ox 98% room air oxygen. Chest x-ray consistent with COPD. There is some increased interstitial markings bilaterally. She is a chronic smoker. No significant exertional dyspnea. No cough sputum production chest tightness or wheezing. Does not utilize any form of respiratory medications on outpatient basis. Blood work shows no leukocytosis, normal coagulation profile, normal electrolytes, normal liver function test, LDL cholesterol was at 103. Pulse ox is 98% room air oxygen. On today's evaluation of 01/02/2024, the patient is being seen for a follow-up. The patient has no significant complaints. Her COPD is currently inactive and stable. She continues to have some residual left facial weakness. No signif icant motor weakness in left upper and left lower extremity. MRI of the brain was done on 01/01/2024 and it showed moderate generalized brain atrophy and there is also moderate burden of T2 white matter signal hyperintensities bilaterally and evidence of chronic microvascular ischemic changes. There is also a 15 x 9 mm ovoid focus of diffusion restriction along the right lateral ventricle and the posterior right frontal lobe compatible with an acute/subacute small vessel ischemic event. No evidence of any mass effect. No midline shift or herniation. The patient remains on a combination of aspirin and Plavix. The patient is currently on 2 L of oxygen by nasal cannula with a pulse ox of 96 to 99%. 01/03/2024, seen the patient for a follow-up. The patient is doing well with no specific complaints. Respite status is stable. Left facial weakness. Motor function left upper and left lower extremity are adequate. The patient has been maintained on a combination of aspirin and Plavix. No respiratory distress. Pulse ox 97% on 2 L of oxygen by nasal cannula. She is having some difficulty with speech. No difficulties with swallowing. No other complaints otherwise for now. MRI of the brain was noted. Echocardiogram shows preserved LV function. Objective - Vital Signs Vital signs: Vital Signs Temp 98.3 F 01/03/24 04:00 Pulse 76 01/03/24 04:00 Resp 16 01/03/24 04:00 BP 171/80 01/03/24 04:00 Pulse Ox 98 01/03/24 04:00 FiO2 Intake & Output 01/02/24 01/03/24 01/03/24 18:59 06:59 18:59 Other: Voiding Method Bedside Commode Toilet # Voids 3 1 - Exam General appearance comfortable on room air oxygen. Head exam was generally normal. There was no scleral icterus or corneal arcus. Mucous membranes were moist. Limited left facial weakness with noted Neck was supple and without jugular venous distension, thyromegaly, or carotid bruits. Carotids were easily palpable bilaterally. There was no adenopathy. Cardiac exam revealed the PMI to be normally situated and sized. The rhythm was regular and no extrasystoles were noted during several minutes of auscultation. The first and second heart sounds were normal and physiologic splitting of the second heart sound was noted. There were no murmurs, rubs, clicks, or gallops. Lungs were clear to auscultation and percussion, and with normal diaphragmatic excursion. No wheezes or rales were noted. Abdominal exam revealed normal bowel sounds. The abdomen was soft, non-tender, and without masses, organomegaly, or appreciable enlargement of the abdominal aorta. Examination of the extremities revealed easily palpable radial, femoral and pedal pulses. There was no cyanosis, clubbing or edema. Neurologically, the patient is awake and alert x 3. Left facial weakness was noted. Left facial droop. Motor function is normal in the lower extremities. Adequate motor function in the upper extremities.. Left facial droop still present.. Normal swallow. Pupils are equal reactive to light. - Labs CBC & Chem 7: 01/02/24 12:47 01/02/24 12:47 Labs: Abnormal Lab Results - Last 24 Hours (Table) 01/02/24 01/02/24 Range/Units 12:47 12:47 Lymphocytes # 0.6 L (1.0-4.8) k/uL Chloride 109 H (98-107) mmol/L BUN 18 H (7-17) mg/dL Assessment and Plan Plan: Acute CVA with left-sided weakness, CT scan of the brain and CT angiogram was normal. The patient has some residual left-sided weakness. Awaiting neurology consultation. Hemodynamically stable. Cardiac rhythm is sinus. No altered mentation. No difficulties in swallowing. MRI of the brain confirmed presence of an ischemic stroke and the patient remains on a combination of aspirin and Plavix. Having left facial droop and some difficulty with speech. Motor function is adequate for now in the left upper and left lower extremity. Currently on aspirin and Plavix. COPD, currently inactive and stable, attributed to chronic smoking. Currently asymptomatic. Hypothyroidism Smoker Plan Neurology consultation Continue aspirin and Plavix Continue statins, the patient is currently on Lipitor echocardiogram is within normal limits with a normal ejection fraction. Follow-up patient workup regarding COPD and the patient will obviously need a baseline pulmonary function test and she will also need to stop smoking. Smoking cessation counseling was done. No active pulmonary issues for now.
--- NOTE | 2024-01-03 12:31 | P.PN ---
Subjective Progress Note Date: 01/03/24 The patient is a 68-year-old female who was seen in neurologic follow-up on January 03, 2024, in collaboration with Loli Little, via teleneurology. Patient is currently seated on the edge of the bed. She reports that she has been ambulating, unassisted to the bathroom. She says that she has been holding onto the [place] and furniture. She has yet to be assessed by physical therapy. She continues to have slurring her speech and left-sided weakness. The patient is a 68-year-old female who was seen in neurologic follow-up on January 02, 2024, in collaboration with Loli Little, via teleneurology. Patient was seen in neurologic consultation yesterday for concerns regarding stroke. MRI of the brain was performed. This MRI is positive for area of acute ischemia along the right lateral ventricle. There is no reported edema. Please see Dr. Maurice's consultation for further details This morning, the patient complains of a left lateral headache. She reports receiving [place], without benefit. The patient does however take [place] for her chronic back pain and does receive benefit from it. She continues to have left- sided weakness. She reports difficulty with speech. She reportedly passed her bedside swallow evaluation. She was able to swallow her pills, liquids and solids, per nursing. Objective - Vital Signs Vital signs: Vital Signs Temp 98.3 F 01/03/24 04:00 Pulse 76 01/03/24 04:00 Resp 16 01/03/24 04:00 BP 171/80 01/03/24 04:00 Pulse Ox 98 01/03/24 04:00 FiO2 Intake & Output 01/02/24 01/03/24 01/03/24 18:59 06:59 18:59 Other: Voiding Method Bedside Commode Toilet # Voids 3 1 - Exam General: The patient is seated in the bed. She is well-nourished, well- developed and in no acute distress. HEENT: Head is atraumatic, normocephalic. Fundus not visualized. There is no scleral icterus. Mucous membranes are moist. Neurological examination Mental status: The patient is awake, alert and oriented x 3. Her speech is dy sarthric. There is no aphasia. The patient is able to repeat phrases. Cranial nerves: Pupils are equal at 3 mm and reactive. Visual garcia are full to confrontation. Extraocular movements are intact. There is no nystagmus. Facial sensation is intact. There is a left facial droop. Hearing is grossly intact. Uvula and palate are midline. Shoulder shrug is symmetric. Tongue protrudes midline. Motor: Strength (right/left)-triceps 5/4. Biceps 5/4. Executive Vp strength 5/4. Coordination: There is a left pronator drift. There is left-sided slowing of rapid alternating movements. Sensation: The patient reports increased light touch sensation in the left arm and leg. There is no extinction with double simultaneous stimulation Deep tendon reflexes: 3+/4+ in the left upper and lower extremities. 2+/4+ the right upper and lower extremities. - Labs CBC & Chem 7: 01/02/24 12:47 01/02/24 12:47 Labs: Abnormal Lab Results - Last 24 Hours (Table) 01/02/24 01/02/24 Range/Units 12:47 12:47 Lymphocytes # 0.6 L (1.0-4.8) k/uL Chloride 109 H (98-107) mmol/L BUN 18 H (7-17) mg/dL Assessment and Plan Assessment: Acute ischemic stroke, manifesting with dysarthria, left facial droop, left pronator drift, and left arm numbness. Current NIH stroke scale is 4. Patient not a candidate for TNK, as she came outside the window for TNK. MRI is positive for right frontal, acute ischemia * Hypertension * Hyperlipidemia * Hypothyroidism * COPD * Abnormal chest x-ray, pulmonary edema versus rule out pneumonia * Tobacco use Plan: 2-D echo with bubble study to rule out PFO-has been completed. There is no evidence of PFO. Ejection fraction is 60% CTA head and neck showed: No significant CT abnormalities seen. Incidental fin dings include coronary calcifications, mildly dilated ascending aorta, and mild nonspecific mediastinal adenopathy, which can be further characterized with 6- week follow-up CT chest with IV contrast. We will defer this abnormality to IM. Fasting a.m. lipid panel cholesterol 215, LDL 103, HDL 37 triglycerides 372. Recommend Lipitor 40 mg daily. Target LDL <70. Hemoglobin A1c-5.3 Patient states she has been taking aspirin 81 mg daily for the last couple months. We will start Plavix 75 mg daily. Neuro checks every 2 hours. Telemetry monitoring rule out any arrhythmia PT, OT, speech therapy the patient has yet to be assessed by PT and OT. She may benefit from acute rehab placement Recommend complete tobacco cessation. DVT prophylaxis: Heparin 5000 units subcu every [address] Margarito Chau will assume neurologic coverage of this patient as of 01/04/2024 Time with Patient: Greater than 30 (35 minutes were spent caring for this patient today including, obtaining a history, examining the patient, reviewing imaging, chart documentation, labs and creating this note)
[2024-01-04 07:11] LABS: Basophils % (A) 0 %; Eosinophils # (A) 0.2 k/uL (0-0.7); Eosinophils % (A) 4 %; HCT 37.4 % (34.0-46.0); HGB 12.3 gm/dL (11.4-16.0); Lymphocytes # (A) 0.7 k/uL (1.0-4.8); Lymphocytes % (A) 13 %; MCH 31.6 pg (25.0-35.0); MCV 95.9 fL (80.0-100.0); Mean Platelet Volume 8.3; Monocytes # (A) 0.5 k/uL (0-1.0); Monocytes % (A) 9 %; Neutrophils # (A) 3.8 k/uL (1.3-7.7); Neutrophils % (A) 71 %; Platelet Count 208 k/uL (150-450); RDW 14.2 % (11.5-15.5); WBC 5.3 k/uL (3.8-10.6)
[2024-01-04 07:19] LABS: ALT 16 U/L (4-34); AST 29 U/L (14-36); African American GFR (CKD) >90 (>60 ml/min/1.73 sqM); Albumin 3.5 g/dL (3.5-5.0); Alkaline Phosphatase 107 U/L (38-126); Anion Gap 3 mmol/L; Blood Urea Nitrogen 23 mg/dL (7-17); Calcium 9.2 mg/dL (8.4-10.2); Carbon Dioxide 26 mmol/L (22-30); Chloride 107 mmol/L (98-107); Glucose 96 mg/dL (74-99); Non-African American GFR(CKD) 80 (>60 ml/min/1.73 sqM); Potassium 4.3 mmol/L (3.5-5.1); Sodium 136 mmol/L (137-145); Total Bilirubin 0.4 mg/dL (0.2-1.3); Total Protein 7.6 g/dL (6.3-8.2)
[2024-01-04 14:06] VITALS: BMI 28.0
--- NOTE | 2024-01-04 16:40 | P.CONS ---
History of Present Illness - Reason for Consult Consult date: 01/04/24 - History of Present Illness PMR Consult Mrs. Solorzano is 68 yo, , left handed, lives with her and grandson in a 2nd floor apartment with 10-15 BISHOP. 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 Her son has the first floor unit and she can stay with him if needed. Jasmyne Solorzano is a 68-year-old female patient who presented to ER with concerns of left-sided facial droop in slurred speech that started around noon yesterday. Patient has a past medical history ofCOPD, cholecystectomy and current every day smoker. head CT completed showing no definitive acute process.CTA showing no significant CT abnormality. Did show mildly dilated ascending aorta and mild nonspecific mediastinal edema the which could be followed up 6 week follow-up with CT of chest.labwork revealing white blood cell 5.8 hemoglobin 13.9 creat inine 0.64 bun 21. at this time patient will be admitted. Neurology and pulmonary service is consulted. MRI and 2-D echo has been ordered. PT OT and speech service is consulted On 01/02/2024 patient's alert and oriented 3. Patient underwent MRI. Patient still having some left facial drooping and slurred speech. Speech service is consulted to assess swallow. Patient maintained on Plavix and aspirin. Current vital signs temp 98.7, heart rate 62, respiratory rate 20, blood pressure 155/95 with pulse ox 98% on room air MRI of the brain was done on 01/01/2024 and it showed moderate generalized brain atrophy and there is also moderate burden of T2 white matter signal hyperintensities bilaterally and evidence of chronic microvascular ischemic changes. There is also a 15 x 9 mm ovoid focus of diffusion restriction along the right lateral ventricle and the posterior right frontal lobe compatible with an acute/subacute small vessel ischemic event. No evidence of any mass effect. No midline shift or herniation. On 01/03/2024 patient was seen and examined on the medical floor she is alert and oriented x 3 in no apparent distress there is no fever or chills no headache or dizziness no chest pain or shortness of breath no cough, no nausea or vomiting no abdominal pain no diarrhea no urinary symptoms. Vital exam reveals a temperature of 98.4 pulse 67 respirations 16 blood pressure 137/76 pulse ox 97% on 2 L nasal cannula, patient still has significant left-sided facial drooping, with his speech difficulty. 01/04/24: PMR consulted for rehab needs. She feels she's improved, but is tired, having difficulty eating (has to go slow), occasional cough, has chronic LBP/right leg pain for which she is on [place]. Denies MAZA, dizziness, CP, SOB, abdominal pain. LBM this am. She does express a desire to go home if possible. With therapies, Sup-mod I trans, Sup-min A ambulate 100' with CAR SEALER, min A UE ADL/bathing Review of Systems + per above, o/w all systems reviewed negative Past Medical History Past Medical History: COPD, CVA/TIA Additional Past Medical History / Comment(s): past lt wrist fx-casted. 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 Colonoscopy Past Anesthesia/Blood Transfusion Reactions: No Reported Reaction Past Psychological History: No Psychological Hx Reported Smoking Status: Current every day smoker Past Alcohol Use History: None Reported Additional Past Alcohol Use History / Comment(s): started smoking at age 20 smokes 1/2 ppd Past Drug Use History: None Reported - Past Family History Mother Additional Family Medical History / Comment(s): "leaky heart valve' Father Family Medical History: Myocardial Infarction ([place]) Additional Family Medical History / Comment(s): in his sleep Medications and Allergies Home Medications Medication Instructions Recorded Confirmed Type HYDROcodone/APAP 7.5-325MG [[place] 1 tab PO Q6HR PRN 01/01/24 01/01/24 History 7.5-325] Levothyroxine Sodium [Synthroid] 137 mcg PO DAILY 01/01/24 01/01/24 History Pantoprazole Sodium [Protonix] 40 mg PO DAILY 01/01/24 01/01/24 History Allergies Allergy/AdvReac Type Severity Reaction Status Date / Time No Known Allergies Allergy Verified 01/01/24 08:18 Physical Exam Vitals: Vital Signs Temp Pulse Resp BP Pulse Ox 01/04/24 11:25 97.9 F 74 16 123/74 97 01/04/24 09:35 96.8 F L 51 L 18 112/77 96 01/04/24 08:48 98 01/04/24 03:25 96 01/04/24 03:20 97.9 F 54 L 16 145/83 100 01/03/24 23:52 97.9 F 55 L 16 155/81 98 01/03/24 20:28 60 16 01/03/24 20:25 55 L 16 01/03/24 20:00 98.9 F 60 16 126/60 97 01/03/24 16:30 98.3 F 53 L 16 122/59 100 Intake and Output 01/03/24 01/04/24 01/04/24 22:59 06:59 14:59 Intake Total 480 236 Output Total 0 Balance 480 236 Intake: Oral 480 236 Output: Urine 0 Other: Voiding Method Toilet Toilet Toilet # Voids 1 1 3 # Bowel Movements 1 Weight 43.2 kg 69.5 kg Gen: NAD, alert, pleasant HEENT: PERRLA, EOMI, atraumatic/normocephalic, neck supple Lungs: Non-labored respirations, good air exchange Heart: regular rate, no significant LE edema Abd: Soft NT/ND NEURO: A&Ox4. Speech dysarthric. Able to repeat no ifs ands or buts. Names 3/3 objects CN 2-12 with left facial droop, tongue deviation MMT 5/5 Right UE/LE, 4/5 Left UE, 4+/5 left LE SILT bilateral UE/LE DTR symmetric, + Left babinski Finger to nose, heel to davies intact EXT: No calf TTP, negative Homans, no edema Skin: Warm and dry. Results CBC & Chem 7: 01/04/24 06:38 01/04/24 06:38 Labs: Abnormal Lab Results - Last 24 Hours (Table) 01/04/24 01/04/24 Range/Units 06:38 06:38 Lymphocytes # 0.7 L (1.0-4.8) k/uL Sodium 136 L (137-145) mmol/L BUN 23 H (7-17) mg/dL Assessment and Plan Assessment: # Acute CVA with left-sided weakness, left facial droop, dysarthria - CT scan of the brain and CT angiogram was normal. - MRI of the brain confirmed presence of an ischemic stroke and the patient remains on a combination of aspirin and Plavix. # COPD, currently inactive and stable, attributed to chronic smoking. -Currently asymptomatic. # Hypothyroidism # Smoker Recommendations: - per your medical management - continue PT/OT/SL Patient is appropriate for IPR when medically stable, pending insurance approval. She does express desire to go home
--- NOTE | 2024-01-04 17:51 | P.PN ---
Subjective Progress Note Date: 01/04/24 Jasmyne Solorzano is a 68-year-old female patient who presented to ER with concerns ofleft-sided facial droop in slurred speech that started around noon yesterday. Patient has a past medical history ofCOPD, cholecystectomy and current every day smoker. head CT completed showing no definitive acute process.CTA showing no significant CT abnormality. Did show mildly dilated ascending aorta and mild nonspecific mediastinal edema the which could be followed up 6 week follow-up with CT of chest.labwork revealing white blood cell 5.8 hemoglobin 13.9 creatinine 0.64 bun 21. at this time patient will be admitted. Neurology and pulmonary service is consulted. MRI and 2-D echo has been ordered. PT OT and speech service is consulted On 01/02/2024 patient's alert and oriented 3. Patient underwent MRI. Patient still having some left facial drooping and slurred speech. Speech service is consulted to assess swallow. Patient maintained on Plavix and aspirin. Current vital signs temp 98.7, heart rate 62, respiratory rate 20, blood pressure 155/95 with pulse ox 98% on room air On 01/03/2024 patient was seen and examined on the medical floor she is alert and oriented x 3 in no apparent distress there is no fever or chills no headache or dizziness no chest pain or shortness of breath no cough, no nausea or vomiting no abdominal pain no diarrhea no urinary symptoms. Vital exam reveals a temperature of 98.4 pulse 67 respirations 16 blood pressure 137/76 pulse ox 97% on 2 L nasal cannula, patient still has significant left-sided facial drooping, with his speech difficulty. On 01/04/2024 patient was seen and examined on the medical floor she is alert and oriented x 3 in no apparent distress there is no fever or chills no headache or dizziness no chest pain no shortness of breath no cough no nausea or vomiting no abdominal pain no diarrhea no urinary symptoms. Patient still has difficulty with her speech and with left-sided weakness, physical therapy and Occupational Therapy following, will recheck in a.m.. Objective - Vital Signs Vital signs: Vital Signs Temp 97.9 F 01/04/24 11:25 Pulse 74 01/04/24 11:25 Resp 16 01/04/24 11:25 BP 123/74 01/04/24 11:25 Pulse Ox 97 01/04/24 11:25 FiO2 Intake & Output 01/03/24 01/04/24 01/04/24 18:59 06:59 18:59 Intake Total 480 480 118 Output Total 0 Balance 480 480 118 Weight 43.2 kg Intake: Oral 480 480 118 Output: Urine 0 Other: Voiding Method Toilet Toilet Toilet # Voids 1 1 - Exam Head normocephalic Neck supple Lungs clear to auscultation bilaterally no wheezing or crackles Heart regular rate and rhythm S1-S2, no rub or gallop Abdomen is soft nontender nondistended positive bowel sounds no hepatosplenomegaly Extremities no edema Neuro alert and orientated to 3. Left facial droop noted with slurred speech - Labs CBC & Chem 7: 01/04/24 06:38 01/04/24 06:38 Labs: Abnormal Lab Results - Last 24 Hours (Table) 01/04/24 01/04/24 Range/Units 06:38 06:38 Lymphocytes # 0.7 L (1.0-4.8) k/uL Sodium 136 L (137-145) mmol/L BUN 23 H (7-17) mg/dL Assessment and Plan Assessment: 1. Left-sided facial droop with slurred speech concerns for CVA 2. Abnormal chest x-ray we'll repeat 2 view.. Patient was evaluated by pulmonary services no further workup 3. History of ongoing nicotine dependence. Patient educated greater than 3 minutes on the importance of complete smoking cessation 4. history of COPD 5. History of cholecystectomy 6. Incidental finding of mild dilated ascending aorta and mild nonspecific mediastinal adenopathy recommend six-week follow-up CT of chest with IV contrast At this time patient will be admitted Neurology and pulmonary service is consulted MRI of the head ordered 2-D echo ordered Two-view chest x-ray ordered PT OT and speech service is consulted
[2024-01-05 10:23] VITALS: TEMP 98
--- NOTE | 2024-01-05 11:11 | P.DS ---
Providers Date of admission: 12/31/23 22:39 Expected date of discharge: 01/05/24 Attending physician: Paulette Childs Consults: 12/31/23 22:40 Consult Physician Routine Consulting Provider: Angélica Maurice Consult Reason/Comments: cva Do you want consulting provider notified?: Yes 01/01/24 10:44 Consult Physician Routine Consulting Provider: Katerina Hooks Consult Reason/Comments: broncho pneumonia c xr Do you want consulting provider notified?: Yes 01/04/24 13:38 Consult Physician Routine Consulting Provider: Landen Rodriguez Consult Reason/Comments: Eval for IPR Do you want consulting provider notified?: Yes Primary care physician: Paulette Childs [place] [facility] Course: discharge diagnosis 1. Left-sided facial droop with slurred speech concerns for CVA 2. Abnormal chest x-ray we'll repeat 2 view.. Patient was evaluated by pulmonary services no further workup 3. History of ongoing nicotine dependence. Patient educated greater than 3 minutes on the importance of complete smoking cessation 4. history of COPD 5. History of cholecystectomy 6. Incidental finding of mild dilated ascending aorta and mild nonspecific mediastinal adenopathy recommend six-week follow-up CT of chest with IV contrast Hospital course Jasmyne Solorzano is a 68-year-old female patient who presented to ER with concerns ofleft-sided facial droop in slurred speech that started around noon yesterday. Patient has a past medical history ofCOPD, cholecystectomy and current every day smoker. head CT completed showing no definitive acute process.CTA showing no significant CT abnormality. Did show mildly dilated ascending aorta and mild nonspecific mediastinal edema the which could be followed up 6 week follow-up with CT of chest.labwork revealing white blood cell 5.8 hemoglobin 13.9 creatinine 0.64 bun 21. at this time patient will be admitted. Neurology and pulmonary service is consulted. MRI and 2-D echo has been ordered. PT OT and speech service is consulted On 01/02/2024 patient's alert and oriented 3. Patient underwent MRI. Patient still having some left facial drooping and slurred speech. Speech service is consulted to assess swallow. Patient maintained on Plavix and aspirin. Current vital signs temp 98.7, heart rate 62, respiratory rate 20, blood pressure 155/95 with pulse ox 98% on room air On 01/03/2024 patient was seen and examined on the medical floor she is alert and oriented x 3 in no apparent distress there is no fever or chills no headache or dizziness no chest pain or shortness of breath no cough, no nausea or vomiting no abdominal pain no diarrhea no urinary symptoms. Vital exam reveals a temperature of 98.4 pulse 67 respirations 16 blood pressure 137/76 pulse ox 97% on 2 L nasal cannula, patient still has significant left-sided facial drooping, with his speech difficulty. On 01/04/2024 patient was seen and examined on the medical floor she is alert and oriented x 3 in no apparent distress there is no fever or chills no headache or dizziness no chest pain no shortness of breath no cough no nausea or vomiting no abdominal pain no diarrhea no urinary symptoms. Patient still has difficulty with her speech and with left-sided weakness, physical therapy and Occupational Therapy following, will recheck in a.m.. on 01/05/2024 patient is alert and oriented 3. Patient is eager to be DC'd home. Declining rehab at this time. Patient has been cleared for discharge from neurology services patient will be DC'd home on Plavix and aspirin and follow up with PCP for further management. Incidental finding of mild dilated ascending aorta mild nonspecific mediastinal the neuropathy recommending six- month follow-up CT of chest with IV contrast Patient Condition at Discharge: Stable Plan - Discharge Summary Discharge Rx Participant: No New Discharge Prescriptions: New Nicotine 14Mg/24Hr Patch [Habitrol] 1 patch TRANSDERM DAILY 30 Days #30 patch Atorvastatin [Lipitor] 80 mg PO HS 30 Days #30 tab Clopidogrel [Plavix] 75 mg PO DAILY 30 Days #30 tab Aspirin EC [Ecotrin Low Dose] 81 mg PO DAILY 30 Days #30 tab Continue HYDROcodone/APAP 7.5-325MG [[place] 7.5-325] 1 tab PO Q6HR PRN PRN Reason: Pain Pantoprazole Sodium [Protonix] 40 mg PO DAILY Levothyroxine Sodium [Synthroid] 137 mcg PO DAILY Discharge Medication List HYDROcodone/APAP 7.5-325MG [[place] 7.5-325] 1 tab PO Q6HR PRN 01/01/24 [History] Levothyroxine Sodium [Synthroid] 137 mcg PO DAILY 01/01/24 [History] Pantoprazole Sodium [Protonix] 40 mg PO DAILY 01/01/24 [History] Aspirin EC [Ecotrin Low Dose] 81 mg PO DAILY 30 Days #30 tab 01/05/24 [Rx] Atorvastatin [Lipitor] 80 mg PO HS 30 Days #30 tab 01/05/24 [Rx] Clopidogrel [Plavix] 75 mg PO DAILY 30 Days #30 tab 01/05/24 [Rx] Nicotine 14Mg/24Hr Patch [Habitrol] 1 patch TRANSDERM DAILY 30 Days #30 patch 01/05/24 [Rx] Follow up Appointment(s)/Referral(s): Steff Gtz MD [REFERRING] - 1 Week Paulette Childs MD [Primary Care Provider] - 1-2 days Discharge/Stand Alone Forms: Who Do I Call?, Community Resources
[2024-01-05 11:15] LABS: Basophils % (A) 0 %; Eosinophils # (A) 0.1 k/uL (0-0.7); Eosinophils % (A) 2 %; HCT 39.4 % (34.0-46.0); HGB 12.9 gm/dL (11.4-16.0); Lymphocytes # (A) 0.5 k/uL (1.0-4.8); Lymphocytes % (A) 9 %; MCH 31.8 pg (25.0-35.0); MCHC 32.7 g/dL (31.0-37.0); MCV 97.5 fL (80.0-100.0); Monocytes # (A) 0.6 k/uL (0-1.0); Monocytes % (A) 9 %; Neutrophils # (A) 4.6 k/uL (1.3-7.7); Neutrophils % (A) 77 %; Platelet Count 214 k/uL (150-450); RBC 4.04 m/uL (3.80-5.40)
[2024-01-05 11:17] LABS: ALT 20 U/L (4-34); AST 37 U/L (14-36); African American GFR (CKD) 87 (>60 ml/min/1.73 sqM); Albumin 3.7 g/dL (3.5-5.0); Alkaline Phosphatase 109 U/L (38-126); Anion Gap 1 mmol/L; Blood Urea Nitrogen 24 mg/dL (7-17); Calcium 9.3 mg/dL (8.4-10.2); Carbon Dioxide 31 mmol/L (22-30); Chloride 106 mmol/L (98-107); Glucose 112 mg/dL (74-99); Non-African American GFR(CKD) 75 (>60 ml/min/1.73 sqM); Potassium 4.4 mmol/L (3.5-5.1); Sodium 138 mmol/L (137-145); Total Bilirubin 0.4 mg/dL (0.2-1.3)
--- NOTE | 2024-01-05 12:21 | P.PN ---
Subjective Progress Note Date: 01/05/24 I am seeing the patient for the first time during this admission. Please refer to Dr. Lauren's notes. It seems the patient had acute stroke with dysarthria and left facial droop and left upper weakness and numbness. The sroke is over the right frontal region. Per the nurse, the patient is doing well, walking on her own and no new neurological issues and pending clearance from our side for discharge. Patient states she is doing well and no issues she is having. Objective - Vital Signs Vital signs: Vital Signs Temp 98 F 01/05/24 08:20 Pulse 67 01/05/24 08:20 Resp 18 01/05/24 08:20 BP 149/66 01/05/24 08:20 Pulse Ox 97 01/05/24 08:20 FiO2 Intake & Output 01/04/24 01/05/24 01/05/24 18:59 06:59 18:59 Intake Total 354 240 718 Balance 354 240 718 Weight 69.5 kg Intake: Oral 354 240 718 Other: Voiding Method Toilet Toilet Toilet Diaper Diaper # Voids 3 1 2 # Bowel Movements 1 - Exam General: Sitting in a chair and is not in acute distress. Neuro: The patient is very hard of hearing so examination is somewhat limited. She is awake, alert, oriented to self, place and time. Is following simple commands. No aphasia. Visual garcia are full to confrontation. EOM intact and no nystagmus. Has left lower facial droop. Has mild to moderate dysarthria. Motor: Strength is 5/5 throughout. - Labs CBC & Chem 7: 01/05/24 10:34 01/05/24 10:34 Labs: Abnormal Lab Results - Last 24 Hours (Table) 01/05/24 01/05/24 Range/Units 10:34 10:34 Lymphocytes # 0.5 L (1.0-4.8) k/uL Carbon Dioxide 31 H (22-30) mmol/L BUN 24 H (7-17) mg/dL Glucose 112 H (74-99) mg/dL AST 37 H (14-36) U/L Assessment and Plan Assessment: Acute ischemic stroke, manifesting with dysarthria, left facial droop, left pronator drift, and left arm numbness. Current NIH stroke scale is 4. Patient not a candidate for TNK, as she came outside the window for TNK. MRI is positive for right frontal, acute ischemia * Hypertension * Hyperlipidemia * Hypothyroidism * COPD * Abnormal chest x-ray, pulmonary edema versus rule out pneumonia * Tobacco use Plan: 2-D echo with bubble study to rule out PFO-has been completed. There is no evidence of PFO. Ejection fraction is 60% CTA head and neck showed: No significant CT abnormalities seen. Incidental findings include coronary calcifications, mildly dilated ascending aorta, and mild nonspecific mediastinal adenopathy, which can be further characterized with 6-week follow-up CT chest with IV contrast. We will defer this abnormality to IM. Fasting a.m. lipid panel cholesterol 215, LDL 103, HDL 37 triglycerides 372. Recommend Lipitor 40 mg daily. Target LDL <70. Hemoglobin A1c-5.3 Patient states she has been taking aspirin 81 mg daily for the last couple months that she notified by team mate but she notified me was taking it occasionally. She was started on Plavix 75 mg daily during this admission. Recommend dual antiplatelets for 21 days, then after that only monotherapy (ASA indefinitely only if was taking aspirin occasionally in past). Neuro checks every 2 hours. Telemetry monitoring rule out any arrhythmia. Recommend 20 minutes event monitor. PT, OT, speech therapy the patient has yet to be assessed by PT and OT. She may benefit from acute rehab placement Recommend complete tobacco cessation. DVT prophylaxis: Heparin 5000 units subcu every 12 hours Upon discharge, recommend patient to follow-up with neurologist as outpatient within 2 weeks. The plan is discussed with patient and her nurse. There is no further neurological work-up. Will sign off. Please reconsulte if needed. Time with Patient: Less than 30
[2024-01-05 13:57] VITALS: BP 145/64; PULSE 70; RESP 17
== END 2024-01-05 14:19 | disposition home or self-care (01) | DRG 65 ==
LOC: EC 20:28 → 1SOBS 22:39 → 3SCARD 01-01 14:41
PROVIDERS: ADMIT Internal Medicine; ATTEND Internal Medicine
DX: I63.89 Other cerebral infarction (principal); G81.94 Hemiplegia, unspecified affecting left nondominant side; E03.9 Hypothyroidism, unspecified; E78.5 Hyperlipidemia, unspecified; F17.200 Nicotine dependence, unspecified, uncomplicated; G89.29 Other chronic pain; G31.9 Degenerative disease of nervous system, unspecified; G62.9 Polyneuropathy, unspecified; I10 Essential (primary) hypertension; I77.819 Aortic ectasia, unspecified site; J44.9 Chronic obstructive pulmonary disease, unspecified; R29.705 NIHSS score 5; M19.90 Unspecified osteoarthritis, unspecified site; R29.810 Facial weakness; S62.102D Fracture of unspecified carpal bone, left wrist, subsequent encounter for fracture with routine healing; M54.50 Low back pain, unspecified; M79.604 Pain in right leg; R47.1 Dysarthria and anarthria; R59.0 Localized enlarged lymph nodes; R63.30 Feeding difficulties, unspecified; Z71.6 Tobacco abuse counseling; Z90.5 Acquired absence of kidney; Z79.890 Hormone replacement therapy; Z79.899 Other long term (current) drug therapy; Z86.73 Personal history of transient ischemic attack (TIA), and cerebral infarction without residual deficits; Z71.3 Dietary counseling and surveillance
CPT/HCPCS: 36415; 70450; 70496; 70498; 70551; 71046; 80053; 80061; 82550; 83036; 84484; 85025; 85610; 85730; 93005; 93270; 93306; 94760; 96360; 96361; 96372; 99291